=== PATIENT | male | born 1945 | race Caucasian/White ===

== ENCOUNTER → 2018-01-08 10:15 | Outpatient (BNVA) | payer MEDICARE, OTHER, SELFPAY | PROVIDERS: PCP Family Medicine; Visit Provider Orthopaedic Surgery | DX: M17.11 Unilateral primary osteoarthritis, right knee (principal) | CPT/HCPCS: 20610; 99213; J7325 ==

== ENCOUNTER 2018-05-13 10:24 | Outpatient (CLI) | payer MEDICARE, OTHER, SELFPAY ==
[2018-05-15 11:49] LABS: PSA, Diagnostic 0.7 ng/ml (0-6.5)
== END 2018-05-13 10:44 ==
PROVIDERS: Urology; PCP Family Medicine; Visit Provider Family Medicine
DX: C61 Malignant neoplasm of prostate (principal)
CPT/HCPCS: 36415; 84153

== ENCOUNTER → 2018-05-21 11:29 | Outpatient (BNVA) | payer MEDICARE, OTHER, SELFPAY | PROVIDERS: PCP Family Medicine; Visit Provider Urology | DX: R35.0 Frequency of micturition (principal); C61 Malignant neoplasm of prostate; I10 Essential (primary) hypertension | CPT/HCPCS: 99213 ==

== ENCOUNTER 2018-07-11 02:04 | Outpatient (CLI) | payer MEDICARE, OTHER, SELFPAY ==
[2018-07-11 09:39] LABS: Anion Gap 6.7 mmol/L (3-11); BUN 11 mg/dL (7-18); CO2 31.3 mmol/L (21.0-32.0); CREATININE 0.78 mg/dL (0.70-1.30); Calcium 8.6 mg/dL (8.5-10.1); Chloride 104 mmol/L (98-107); Glucose 89 mg/dL (70-100); Potassium 4.2 mmol/L (3.5-5.1); Sodium 142 mmol/L (136-145)
[2018-07-12 09:46] LABS: PSA, Diagnostic 0.6 ng/ml (0-6.5)
== END 2018-07-11 02:24 ==
PROVIDERS: PCP Family Medicine; Visit Provider Family Medicine
DX: Z12.5 Encounter for screening for malignant neoplasm of prostate (principal); Z85.46 Personal history of malignant neoplasm of prostate; I10 Essential (primary) hypertension
CPT/HCPCS: 36415; 80048; 84153

== ENCOUNTER 2018-07-29 09:56 | Outpatient (CLI) | payer MEDICARE, OTHER, SELFPAY ==
--- NOTE | 2018-07-29 09:52 | DI.RAD_ITS ---
SYMPTOMS/DIAGNOSIS: F/U RIGHT KNEE PAIN BILATERAL LOWER EXTREMITIES: AP views of the lower extremities were obtained for leg length determination. There are mild degenerative changes of both hips. There is a total knee joint replacement in position on the left. There is marked DJD of the right knee, predominantly involving the medial tibiofemoral joint. RIGHT KNEE: Lateral view of the knee was obtained and shows degenerative change of the patellofemoral joint and the tibiofemoral joints.
== END 2018-07-29 10:16 ==
PROVIDERS: PCP Family Medicine; Referring Provider Family Medicine; Visit Provider Student in an Organized Health Care Education/Training Program
DX: M25.561 Pain in right knee (principal); M17.11 Unilateral primary osteoarthritis, right knee; Z96.652 Presence of left artificial knee joint
CPT/HCPCS: 99212; 99213; 73560; 77073

== ENCOUNTER 2018-09-19 09:17 | Outpatient (CLI) | payer MEDICARE, OTHER, SELFPAY ==
--- NOTE | 2018-09-19 08:18 | W.PREOPHP ---
Assessment and Plan (1) Primary osteoarthritis of right knee: Current visit: No Status: Chronic Plan: Recommend patient discuss asthma dreams with his PCP for possible ANN work-up. Patient is agreeable to contacting his PCP for follow-up. Educated patient on surgery covering surgical technique with the use of prosthetic models, recovery process, benefits and risks including but not limited to risk of infection, blood clot, damage to soft tissue/blood vessels/nerves in detail. After discussion patient gives verbal understanding of risks and elects to proceed with scheduling surgery. Patient had opportunity to have questions answered to their satisfaction. They will contact office if issues arise. Patient will continue to be scheduled for right total knee replacement with Dr. Gonzáles. History of Present Illness Narrative: Mr. Collins is a 73-year-old male who presents to clinic for preoperative visit for scheduled right total knee replacement with Dr. Gonzáles on 09/24/18. Patient is status post left TKA done by Dr. Mcintyre approximately 13 years ago. Patient has been experiencing right knee discomfort located diffusely within his knee with occasional focal pain located along the lateral aspect of the joint. Pain has been managed by having Synvisc injections administered by Dr. Mcintyre every 6 months since before 11/12/2008 (chart records only go back to that office visit) with the latest injection being administered on 01/08/18. Following administered of injection patient would have significant improvement. Patient is hesitant to say pain prevents him from engaging in activity as he is able to complete his current activity without significant pain. However, he is unable to engage in additional activities such as hiking due to right knee pain. Pain is aggravated with prolonged weightbearing activity and occasionally he feels like when pain is severe he walks with a limp. He denies pain with stairs but does one stair at a time and has fear of the knee giving out. Although he denies any true giving out sensation, he does have fear that the knee could give out which causes him to ambulate with a cane. Previously he been managing pain by taking ibuprofen or Tylenol as needed but states he discontinued approximately a year ago. Patient denies use of ice/heat application or massage. Patient was seen on 07/29/2018 at which time he had standing alignment films done. Due to patient's continued pain despite injections and restrictions of desired activity Dr. Gonzáles recommended right total knee replacement and patient opted to proceed with surgical intervention. Pertinent Surgical Information Patient denies any recent asthma attacks or hospitalizations for asthma exacerbation. States his asthma is well-controlled. Denies recent symptoms of dyspnea or wheezing. Since New 2018 patient reports history of vertigo occurring on 2 separate occasions and lasting for several days. He reports he did see his PCP for this complaint shortly after the New when he was diagnosed with vertigo. Reports dizziness when he first sits up from bed that will improve within a few seconds. States that his symptoms are unchanged since he was seen by his PCP. Denies past medical history of: stroke, cardiac issues, angina, COPD, sleep apnea, renal issues, liver issues, hepatitis, gastrointestinal issues, ulcers, hyperlipidemia, bleeding disorders, seizures, migraines, anxiety, depression, diabetes, autoimmune disorders, thyroid issues Denies prior complications from surgery or anesthesia. Review of Systems Constitutional Denies fever(s), Denies frequent falls and Denies headache(s) Eyes Denies change in vision ENT Reports dizziness (in the morning when first sits up; denies any recent change), Denies ear discharge, Denies headache(s), Denies epistaxis, Denies nasal discharge and Denies sore throat Cardiovascular Denies chest pain, Denies rapid heart rate, Denies irregular heart rhythm, Denies dyspnea, Denies dyspnea on exertion, Denies orthopnea, Denies paroxysmal nocturnal dyspnea and Denies slow heart rate Comments: Describes what he calls asthma dreams - denies any difficulty breathing at night but states he dreams of feeling slightly SOB. Patient denies nighttime snoring or work-up of ANN in the past. He denies any recent change in this symptom. Respiratory Reports cough (occasional dry cough in the morning ), Denies dyspnea, Denies dyspnea on exertion and Denies wheezing Gastrointestinal Denies abdominal pain, Denies melena, Denies hematochezia, Denies constipation, Denies diarrhea, Denies nausea and Denies vomiting Genitourinary Denies hematuria, Denies dysuria, Reports urinary frequency (at baseline) and Reports urinary urgency (at baseline) Musculoskeletal Reports as per HPI, Denies numbness and Denies tingling Integumentary/Breasts Denies non-healing lesions, Denies sores and Denies wounds Neurologic Reports dizziness (in the morning when first sits up; denies any recent change), Denies frequent falls, Denies headache(s), Denies numbness and Denies tingling Psychiatric Denies anxiety and Denies depression Allergic/Immunologic Denies wheezing PFSH Medical History Overactive bladder Hearing loss Tremor Tinnitus 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) Asthma (Chronic 01/26/14) Carpal tunnel syndrome (Chronic 01/26/14) Diverticulosis (Chronic 01/26/14) Erectile dysfunction (Chronic 01/26/14) Hypertension (Chronic 01/26/14) Increased frequency of urination (Chronic 01/26/14) Osteoarthritis of knee (Chronic 07/07/13) Prostate cancer (Chronic 03/31/15) Rhinitis (Chronic 01/26/14) 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 Brother Heart disease Stroke Sister No problems noted. Social History Smoking/Tobacco Use Status: Former Tobacco Use Drug use: Never Meds Home Medications Medication Instructions Recorded Confirmed Type ascorbic acid (vitamin C) [Vitamin 1,500 mg PO DAILY tab.chew NS 07/09/12 09/19/18 History C] lisinopril 20 mg PO DAILY tab-cap NS 07/09/12 09/19/18 History magnesium 500 mg PO DAILY NS 07/09/12 09/19/18 History albuterol sulfate 2 puff INHALATION QID PRN 01/09/14 09/19/18 History ibuprofen 400 mg PO BID 03/31/15 09/19/18 History cetirizine [Zyrtec] 10 mg PO DAILY tab-cap 10/05/15 09/19/18 History montelukast [Singulair] 10 mg PO DAILY tab-cap 10/05/15 09/19/18 History oxybutynin chloride 5 mg tablet 5 mg PO BID PRN #60 tab 07/16/18 09/19/18 Rx atorvastatin 20 mg tablet 20 mg PO DAILY 09/19/18 09/19/18 History calcium carbonate 600 mg (1,500 1 tab PO DAILY 09/19/18 09/19/18 History mg)-vitamin D3 400 unit tablet fluticasone propionate 2 spray INTRANASAL DAILY 09/19/18 09/19/18 History fluticasone propionate 110 1 puff IH BID 09/19/18 09/19/18 History mcg/actuation HFA aerosol inhaler omeprazole 20 mg capsule,delayed 20 mg PO DAILY 09/19/18 09/19/18 History release Allergies Allergy/AdvReac Type Severity Reaction Status Date / Time shellfish derived Allergy Severe Anaphylaxsi Unverified 09/19/18 09:16 s Sulfa (Sulfonamide AdvReac Nausea Unverified 09/19/18 09:16 Antibiotics) Exam Const General: cooperative and no acute distress [facility] Head: normal to inspection, normocephalic and atraumatic Ears: external ears normal General nose exam: external nose normal and no nasal discharge Face and sinus: face symmetric Mouth: oral mucosae normal, lip normal, tongue normal and moist mucous membranes Teeth and gingiva: dentition normal Throat: posterior oropharynx normal Eyes General: appearance normal, both eyes and all related structures Pupils: PERRL EOM: EOM intact bilaterally Neck Neck: trachea midline Carotids: normal carotid upstroke Lymphatic: no lymphadenopathy noted Resp Effort & Inspection: normal respiratory effort and able to speak in complete sentences Auscultation: clear to auscultation bilaterally, no rales, no rhonchi and no wheezes Cardio Heart Sounds: S1 normal, S2 normal and no murmurs Pulses: radial pulses present bilaterally GI Palpation: soft, no hepatosplenomegaly and nontender Auscultation: normal bowel sounds Skin General skin exam: no rashes or lesions noted Extrem Other: Right knee examination: Skin is intact without signs of erythema, calor or lesions. No signs of effusion are present. Active range of motion yields short of full extension by 5 degrees and yields flexion of 120 degrees without discomfort. Results Labs : 09/19/18 10:23 09/19/18 10:23
[2018-09-19 10:30] LABS: HCT 40.5 % (40.0-50.0); HGB 13.7 g/dL (13.5-17.5); Mean Corp. HGB Concentration 33.8 g/dL (32.0-36.0); Mean Corpuscular Hemoglobin 31.4 pg (27.0-33.0); Mean Corpuscular Volume 92.7 fL (80-95); Mean Platelet Volume 9.1 fL (8.0-11.0); Platelet Count 176 x1000/uL (130-400); RBC 4.37 m/cumm (4.50-6.00); RBC Distribution Width 13.7 % (11.8-14.1)
[2018-09-19 11:59] LABS: Anion Gap 5.8 mmol/L (3-11); BUN 12 mg/dL (7-18); CO2 30.2 mmol/L (21.0-32.0); CREATININE 0.71 mg/dL (0.70-1.30); Calcium 8.7 mg/dL (8.5-10.1); Chloride 100 mmol/L (98-107); Glucose 93 mg/dL (70-100); Potassium 4.6 mmol/L (3.5-5.1); Sodium 136 mmol/L (136-145)
== END 2018-09-19 09:37 ==
PROVIDERS: PCP Family Medicine; Visit Provider Student in an Organized Health Care Education/Training Program
DX: M17.11 Unilateral primary osteoarthritis, right knee (principal); Z01.818 Encounter for other preprocedural examination; I10 Essential (primary) hypertension
CPT/HCPCS: 36415; 80048; 85027; NC

== ENCOUNTER 2018-09-24 06:01 | Inpatient (IN) | payer MEDICARE, OTHER, SELFPAY ==
[2018-09-19 09:44] VITALS: BP 117/71; PULSE 65; RESP 16; TEMP 37.1; O2SAT 99
[2018-09-19 09:46] VITALS: BP 117/71; PULSE 65; RESP 16; TEMP 37.1; O2SAT 99
[2018-09-19 10:08] VITALS: BP 117/71; PULSE 65; RESP 16; TEMP 37.1; O2SAT 99
[2018-09-24] VITALS (16 sets, daily range): BP systolic 97–153; BP diastolic 51–85; PULSE 50–84; RESP 11–19; TEMP 35.3–37.4; O2SAT 92–100
[2018-09-24] MEDS: Gabapentin 300 MG CAP PO ×2 (06:50→21:55)
[2018-09-24] MEDS: Celecoxib 200 MG CAP 400 MG PO (06:50)
[2018-09-24] MEDS: oxyCODONE-CR 10 MG TABCR PO (06:50)
[2018-09-24] MEDS: Acetaminophen 500 MG TAB 1000 MG PO ×2 (06:51→19:39)
[2018-09-24] MEDS: Lactated Ringers 1,000 ML 80 ML IV (07:13)
[2018-09-24] MEDS: Bupivacaine LIPOSOME/PF 133 MG/10 ML VIAL IJ ×2 (07:19→09:00)
[2018-09-24] MEDS: ceFAZolin 2 GM/50 ML BAG IVPB (07:32)
[2018-09-24] MEDS: Normal Saline 20 ML VIAL (09:00)
[2018-09-24] MEDS: Bupivacaine 0.25% Pres-Free 30 ML VIAL (09:00)
[2018-09-24] MEDS: Ketorolac 30 MG/ML VIAL (09:00)
[2018-09-24] MEDS: Bupivacaine 0.25% Pres-Free 10 ML VIAL (09:00)
--- NOTE | 2018-09-24 12:23 | NUR.NOTE ---
Patient arrived on unit at 1039. Patient arrived on stretcher from PACU with PACU nurse. Patient assigned to room 231. Patient transferred to room bed via hover mat. Patient spinal site scabbed over, no bleeding or drainage. Right leg nerve block site scabbed over, no drainage noted. Patient arrived with cryo cuff on. Patient has mepilex dressing over surgical site on right knee wrapped with ALEJANDRO bandage. Patient has TEDs and SCDs on left leg. Proper footwear noted. IV on left forearm. Lactated Ringers solution infusing through left IV site. Hoffman in place with clear venessa urine. Patient drowsy intermittently between alert and awake. Patient oriented x3. Heart rate regular, S1 & S2 sounds. No murmur noted. Heart rate bradycardic at 52 with first vitals on the floor. Capillary refill less than 3 seconds with positive radial and pedal pulses bilaterally. Lungs clear all lobes. Normal bowel sounds. Patient reports tingling in lower extremities bilaterally. Patient reports normal sensation. Nursing Note:
[2018-09-24] MEDS: Ibuprofen 600 MG TAB PO ×2 (14:00→19:40)
--- NOTE | 2018-09-24 14:17 | ROE_ITS ---
Date of service: 09/24/18 Time of Service: 14:14 Operative Note DATE OF PROCEDURE: 09/24/18 PRE-OP DIAGNOSIS: Right knee osteoarthritis POST-OP DIAGNOSIS: same PROCEDURE: Right Total Knee Replacement SURGEON: Janes Gonzáles ROPE LAYING MACHINE OPERATOR: Alexi Young ANESTHESIA: regional and spinal ESTIMATED BLOOD LOSS: 250 PATHOLOGY: none sent TOURNIQUET TIME: 28 COMPLICATIONS: None Patient was transported to: PACU Patient's condition: stable Implants: 1. Depuy Attune Posterior Stabilized Femoral Component, Size 6 2. Depuy Attune Fixed Platform Tibial Component, Size 6 3. Depuy Attune 6x6 fixed, Stabilized Poly 4. Depuy Attune Patellar Component, Size 38 Indications: I have seen Andrey in clinic for symptoms of RIGHT knee arthritis, confirmed with radiographic findings. Andrey has exhausted nonoperative methods and was having significant limitations in daily function and desired better function and less pain. I discussed the technical details of a knee replacement. I explained the risks of the procedure to include, but not limited to, bleeding, infection, pain, stiffness, fracture, damage to nerves and vessels, damage to muscles and tendons, loosening, need for repeat procedure, blood clot and cardiopulmonary demise. Despite these risks, he elected to proceed. Findings: There was significant signs of arthritis throughout the knee. These are mostly noted in the medial compartment but also present to a lesser extent in the lateral compartment and the patellofemoral joint. Procedure Description: Andrey was greeted in the preoperative holding area where the correct side was identified and marked. The consent was reviewed with the patient and signed. The history and physical was updated. All questions were answered. Preoperative mediacations were administered: Acetaminophen 1000mg, Celebrex 400mg, Gabapentin 300mg, and Oxycontin 10mg. An adductor canal block was then administered by the anesthesia team in the PACU. Andrey was taken back to the operating room. A spinal anesthestic was then administered. The patient was placed into the supine position on the operating room table. A nonsterile tourniquet was placed high onto the leg but only used for cementing. Posts were placed for positioning during the procedure. All bony prominences were well padded. Prophylactic antibiotics in the form of cefazolin were administered. 1g of Tranxemic Acid was given intravenously within 30 minutes of incision. The right leg was then prepped with Chloraprep and draped in a standard fashion with impervious stockinette and extremity drape with Iodine impregnated skin protection. A timeout to confirm correct identity, side and site, procedure, allergies, anesthesia, and medical concerns was performed. With the knee in some flexion, a midline incision was made overlying the knee. Full thickness skin flaps were raised once the extensor mechanism was encountered. These were raised medially and laterally. Any bleeding was controlled with electrocautery. Once the extensor mechanism was fully exposed, a medial parapatellar arthrotomy was performed in a flexed position. All bleeding from the arthrotomy and the geniculate arteries was coagulated. A medial subperiosteal peel was performed with electrocautery to the midcoronal plane. Due to the significant varus deformity the entire medial tibial plateau was exposed. The fat pad was removed while keeping the patellar tendon protected. The anterior distal femur synovium was removed for later visualization. The ACL and PCL were resected and the anterior horn of the lateral meniscus was transected. The knee was then flexed with the patella everted. Large osteophytes from the tibia were removed. Large osteophytes from the femur were removed. Using a step drill, and based on preoperative templating, the femoral canal was entered. This was done with a step drill without any difficulty. The intramedullary distal femoral cut guide was inserted, set to a 5 degree valgus cut and 9mm cut thickness. The distal femoral cut guide was then held in position and pinned. With the soft tissues protected, the distal cut was performed. This was passed over a few times to ensure a planar cut. I then turned attention to the tibia. The extramedullary guide was placed onto the leg. The distal aspect was slid medial to adjust for position of center of ankle and stay in line with shaft of the tibia. Approximately 3-5 degrees of posterior slope was kept in the proximal cutting guide. The center of the guide was aligned with the PCL. The stylus was used to assess cut thickness. The medial side, most involved side, was set for a 4mm cut. This was then held in position and pinned into place with 2 additional pins and a cross pin for stability. The medial and lateral collateral ligaments were protected and the cut was performed. With this completed, it was assessed and noted to be of appropriate dimensions. The guide was removed. A spacer block was inserted and the knee was brought into ext ension. The 6mm spacer block provided full extension, without hyperextension and with stability of both the medial and lateral collateral ligaments was assessed. The pins from the femur and the tibia were then removed. The distal femur was then sized. The anterior stylus was placed onto the lateral ridge of the anterior femur. This indicated a size 6 femur. The external rotation of the guide was adjusted to 3 degrees to match the epicondylar axis, perpendicular to Hotchkiss?s line. The 4-in-1 cutting guide was the placed. The posterior medial femur cut was evaluated and appeared of good thickness. The spacer block was inserted underneath the cutting guide and stability was confirmed in 90 degrees of flexion. An maura wing was used to confirm appropriate position of the anterior cut to avoid notching. This cutting guide was ensured to be flush on the cut surface and then pinned into place with headed pins. While protecting the soft tissues, quad tendon, and collateral ligaments, the anterior and posterior cuts were performed with a saw. The central two pins were removed and the posterior and anterior chamfers were cut next. The notch-cutting guide was placed. This was pinned to lateralize the femoral component as much as possible while keeping it flush on the cut surface. This was then pinned into position. A reciprocating saw was used to make the notch cut. A rasp smoothed the cut surfaces. A trial posterior stabilized femoral component was then inserted, impacted down to the cut surfaces, and the lug holes were drilled. A provisional trial tibial component was placed and the knee was brought through range of motion. There was noted to be excellent extension and flexion. There was no significant instability. The patella was tracking without thumbs. The tibial cut surface was fully exposed. The medial and lateral menisci were removed. The tibia was then sized as a 6. The tibia had been previously marked during trialing to correspond to the center of the tibial component to help with rotation. The trial was aligned to this alexi, approximately rotated to the medial 1/3rd of the tibial tubercle. The trial was pinned into place. The tib ia was prepared with a reamer and a keel punch. The knee was then brought into extension and the patella was measured as 26 mm. Using the patellar clamp and cut guide, this was resected to a flat surface with at least 13mm of thickness remaining. The size 38 patella fit the best. This was oriented and then clamped into position. The lugs were drilled. The trial components were removed. The final components, except for the polyethylene were opened on the back table. The periosteal and capsular tissues, especially posteriorly, around the knee were then systematically injected with a periarticular cocktail consisting of 50cc 0.25% Marcaine, 30mg Ketorolac, 20cc of Exparal and 50cc of injectable saline. The tourniquet was then inflated to 275mmHg. The knee was thoroughly irrigated with a pulse lavage and dried. On the back table, with the implants opened, the cement was mixed. 2 batches of antibiotic laden cement were prepared with vacuum assistance. After the cement was ready a small amount was placed on to the back side of the tibial component at the keel. A small amount was placed onto the posterior flange of the femur. Cement was manual pressurized and impregnated into the cut surface of the tibia. The tibial component was then inserted into the cut surface and impacted into position. Excess cement was removed and the component was reimpacted. Again, excess cement was removed and our attention was then turned to the femur. The femoral cut surface was once again dried and cement was manually impacted into the cut surface. The femoral component was lined with the lug holes and impacted. Excess cement was removed. It was ensured to be down against the cut surface. The trial polyethylene was then inserted and the leg was brought out into full extension for the duration of the cement curing process, approximately 15min. Cement was lastly manually impacted into the cut surface of the patella and the patellar button was clamped into position and held. During this process attention was turned to the gutters of the knee and for all interfaces for any excess cement. After the cement had finally cured, approximately 15min, the clamp was removed from the patella and the knee was taken through range of motion. A size 6mm polyethylene component provided the best range of motion and stability with less than 2mm gapping with medial and lateral stress and full extension without significant hyperextension. The patella was tracking with a no-thumbs technique. The trial poly was removed and once again the knee was checked for any loose, excess, or errant cement. The poly component was then inserted and impacted into position after cleaning and drying the tibial tray. The capsule was then reapproximated with a No. 1 Vicryl at multiple locations. The capsule was finally closed with a No. 2 Stratafix, barbed suture. The tourniquet was then released and the arthrotomy appeared watertight without significant bleeding. The second dosing of 1g TXA was started. Deep tissues were then reapproximated with 0 Vicryl and 2-0 Vicryl. The skin was closed with a running 3-0 Monocryl in a subcuticular fashion. This was reinforced with skin glue. A Mepilex silver dressing was applied along with a [id number] ALEJANDRO wrap. A CryoCuff was applied. Andrey was transferred to the hospital bed without difficulty an suffering no apparent complication. Andrey has a good prognosis. Physical therapy will start today and without restrictions, weight-bearing as tolerated. Aspirin 81mg BID will be used for DVT prophylaxis.
[2018-09-24] MEDS: oxyCODONE 5 MG TAB PO (16:01)
[2018-09-24] MEDS: Aspirin E.C. 325 MG TABEC 81 MG PO (19:40)
[2018-09-24] MEDS: Magnesium Gluconate 500 MG TAB PO (19:40)
[2018-09-24] MEDS: Atorvastatin 20 MG TAB PO (21:55)
--- NOTE | 2018-09-24 22:52 | NUR.NOTE ---
Nursing Note: Pt received on bed fully awake with IVFluids infusing well. Ambulates in the hallway with minimal assist and tolerated well. Incision drsg on right knee is C/D/I with cryo cuff in progress continuously while on bed. Medicated with oxy and with good effect. CSMT on affected leg is within normal limit.Continue to observe.
[2018-09-25] MEDS: Lactated Ringers 1,000 ML 80 ML IV (00:12)
[2018-09-25 03:30] VITALS: BP 124/72; PULSE 79; RESP 18; TEMP 37.7; O2SAT 97
[2018-09-25 07:39] VITALS: BP 138/84; PULSE 70; RESP 18; TEMP 37.4; O2SAT 98
[2018-09-25] MEDS: Mometasone 220 MCG 14 DOSE INHALER 1 PUFF IH (07:54)
[2018-09-25] MEDS: Normal Saline Flush 10 ML SYR IV (08:00)
[2018-09-25] MEDS: Ibuprofen 600 MG TAB PO ×3 (08:01→19:50)
[2018-09-25] MEDS: Lisinopril 20 MG TAB PO (08:02)
[2018-09-25] MEDS: Cetirizine 10 MG TAB PO (08:02)
[2018-09-25] MEDS: Calcium 600mg/Vit D 200U TAB 1 TAB PO (08:03)
[2018-09-25] MEDS: Aspirin E.C. 81 MG TABEC PO ×2 (08:04→19:50)
[2018-09-25] MEDS: Oxybutynin 5 MG TAB PO ×2 (08:04→13:54)
[2018-09-25] MEDS: Omeprazole 20 MG CAPCR PO (08:05)
[2018-09-25] MEDS: Ascorbic Acid 500 MG TAB 1500 MG PO (08:05)
[2018-09-25] MEDS: oxyCODONE 5 MG TAB PO ×3 (08:06→12:57)
[2018-09-25] MEDS: Acetaminophen 500 MG TAB 1000 MG PO ×3 (08:06→19:49)
--- NOTE | 2018-09-25 08:33 | IN_ITS ---
Date of service: 09/24/18 Time of Service: 11:48 PT Notes Inpatient Physical Therapy Evaluation Date: 09/24/2018 Referring Doctor: Janes Gonzáles MD PT Orders: PT CONSULT: Status post right TKA Precautions: Fall. Standard. WBAT on right LE. Patient Profile/Admitting Diagnosis: Patient is a 73-year-old male with past medical history significant for osteoarthritis of right knee and vertigo who is status post right total knee arthroplasty on postoperative day 0. 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 He was independent with all aspects of ADLs without the need for assistive ambulatory device nor adaptive equipment. Current Functional Limitations: Need for assistance for all transfers and ambulation task performance using front wheel walker Equipment Owned/DME: FWW, high-rise toilet, grab bars Subjective: Patient pleasant and cooperative. He is agreeable to a PT consult today. He reports sensation of dizziness on assuming sitting and standing positions. Patient and states that he has had vertigo before but had resolved. They both state that the vertigo recurred a week or two ago. He reports some mild ache and stiffness on the right knee during ambulation activ ity. Objective: General Observation: Patient seen resting in bed. ALEJANDRO wraps on right LE. Cryocuff on right LE. Hoffman catheter in place. IV in the left UE. Anti-DVT pump on left leg. Mental Status: Alert and oriented x 4 Pain: Reported mild ache and stiffness on the left kneethe R knee with mobility performance Vital Signs: 133/70 mmHg, 55 bpm, 99% RA. ROM: Right Upper Extremity: Shoulder Flexion WFL. Shoulder abduction WFL. Elbow flexion WFL. Wrist flexion WFL. Functional opening and closing of hand WFL. Left Upper Extremity: Shoulder Flexion WFL. Shoulder abduction WFL. Elbow flexion WFL. Wrist flexion WFL. Functional opening and closing of hand WFL. Right Lower Extremity: Hip flexion 0-70. Hip abduction WFL. Knee flexion 0-90. Knee extension -20. Ankle dorsiflexion WFL. Ankle plantarflexion WFL. Left Lower Extremity: Hip flexion WFL. Hip abduction WFL. Knee flexion WFL. Ankle dorsiflexion WFL. Ankle plantarflexion WFL. Managed medically Strength: Right Upper Extremity: Shoulder flexors 5/5. Shoulder abductors 5/5. Elbow flexors 5/5. Elbow extensors 5/5. Maintenance Services Dispatcher strong. Left Upper Extremity: Shoulder flexors 5/5. Shoulder abductors 5/5. Elbow flexors 5/5. Elbow extensors 5/5. Maintenance Services Dispatcher strong. Right Lower Extremity: Hip flexors 3-/5. Hip abductors 5/5. Knee flexors 3-/5. Knee extensors 3-/5 with poor R quadcripces activation due to post-op status and post-anesthesis effects. Ankle dorsiflexors 5/5. Ankle plantarflexors 5/5. Left Lower Extremity:Hip flexors 4/5. Hip abductors 4/5. Knee flexors 4/5. Knee extensors 4/5. Ankle dorsiflexors 5/5. Ankle plantarflexors 5/5. Sensation: Diminished on BLE as to pressure. Bed Mobility/Transfers: Rolling CGA Supine to sit CGA with HOB elevated to 30 degrees Sit to supine CGA with HOB elevated to 30 degrees Sit to stand minimal assist with FWW with cues needed for hand placement Stand to sit minimal assist with FWW with cues needed for hand placement Bed to chair minimal assist with FWW with cues needed for hand placement Chair to bed minimal assist with FWW with cues needed for hand placement Gait: Patient was able tolerate short distance ambulation using FWW with WBAT on R LE and minimial assist of this PT. Patient negotiated 8' + 2 sidesteps + 2 back steps using step-to gait pattern with decreased gait velocity and decreased knee stability @ midstance d/t to poor R quadriceps activation. Balance: Static Sitting: Good Dynamic Sitting: Good Static Standing: Fair Dynamic Standing: Fair Special Tests: Mobility Limitations Standardized Measure [facility] AM-PAC 6 clicks Basic Mobility Inpatient Short Form: Raw Score: 15 CMS Score: 58% deficit Informed Consent/Education: Patient instructed in purpose of PT consult and plan of care. He was educated about rationale of room exercise activity and trained on hourly performance of ankle pumping x30, quadriceps setting with 5- second hold x10 reps, heel slides to tolerance with 5-second hold x 10 coordinated with deep breathing activity. Assessment: 73-year-old male with primary unilateral osteoarthritis of right knee status post right total knee arthroplasty. Patient presents with clinical signs and symptoms consistent with current/admitting diagnoses and post reparative status that have resulted to mobility limitations, gait instability, generalized weakness, and impairment of motor control as demonstrated by the following impairment level findings: 1. Decreased strength to R LE major muscle groups 2. Impaired sitting/standing balance 3. Impaired activity tolerance 4. Limitation of joint range of motion in the right hip and knee joints I think 5. Decreased right quadriceps activation due to post operative status and post anesthesia effects Impairments are contributing to the following functional limitations: 1. Dependent bed mobility skills 2. Increased dependence with transfers 3. Inability to safely ambulate without assistive device and physical assistance 4. Increase completion time for mobility ADL performance 5. Increased fall risk 6. Inability to negotiate steps alone safely Patient is assessed as a 79915 moderate Complexity based on the following: History: 73-year-old cognitively intact male with independent premorbid mobility level currently limited by post operative status and report of dizziness Examination: Underlying impairments and functional limitations as noted above Presentation:Evolving Decision Makin moderate complexity Goals: Goals X1 week 1. Supine-Sit independent 2. Sit-Supine independent 3. Sit-Stand independent 4. Stand-Sit independent 5. Bed-Chair independent 6. Chair-Bed independent 7. Independent gait on level surface with use of least restrictive device for at least 300 feet without report of pain nor dyspnea 8. Independent stair negotiation while holding onto bilateral rails for at least 10 steps without report of pain nor dyspnea 9. Independent with home exercise program 10. Good static and dynamic standing balance/tolerance Plan of Care/Treatment Plan: 1-2x/day, 7 days/week x 1 week. Plan of care has been reviewed with the DIRECTOR OF GRADUATE ADMISSIONS providing the service under Physical Therapy direction. Initiate Physical Therapy intervention for strengthening, bed mobility, transfers, gait, stairs, balance training, use of assistive device. DISCHARGE RECOMMENDATIONS: No equipment needs at this time. Patient may benefit from home health PT services in order to progress mobility level using least restrictive assistive ambulatory device/using no device, assess home safety, identify additional equipment needs, and establish a functional maintenance program that will increase ability of patient to remain at home. TREATMENT CODE/TIME: 32854 x 32 minutes beginning at 11:48 AM. Thank you very much for this referral. Leigh Ann Blackburn PT, DPT, CLT [facility].
--- NOTE | 2018-09-25 09:58 | INITIAL_ITS ---
- If Service Date Differs Date of service: 09/25/18 Time of Service: 09:48 Care Management Initial Assess REASON FOR HOSPITALIZATION:: Right knee DJD PAST MEDICAL HISTORY/PAST SURGICAL HISTORY:: past medical History: Adenomatous polyp of transverse colon, Asthma, Diverticulosis, Erectile Dysfunction, Hearing Loss, Hyperplasia of prostate with urinary obstruction, Hypertension, Increased frequency of urination, Obstructive and reflux uropathy, Osteoarthritis of knee, Overactive bladder, Primary osteoarthritis of right knee, prostate cancer, Rhinitis, Tinnitus, Trempr, Vertigo. Past Surgical History: Status post trigger finger release (Acute). Status post appendectomy (Acute). S/P tonsillectomy (Acute). Status post bilateral inguinal hernia repair (Acute). Colonoscopy - MAC (05/09/17). Status post total left knee replacement (Chronic). Status post trigger finger release (Acute). Status post appendectomy (Acute). S/P tonsillectomy (Acute). Status post bilateral inguinal hernia repair (Acute). Colonoscopy - MAC (05/09/17). Status post total left knee replacement (Chronic) PREVIOUS FUNCTIONAL STATUS/SOCIAL/FAMILY SUPPORTS:: Andrey lives with his in a ranch style home with 3 entrance steps. 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 For family support he has 2 adult children and his . They have no grandchildren. Andrey is independent with all ADLs and continues to drive. CURRENT FUNCTIONAL STATUS:: Andrey was sitting up in bed during CM visit. He was smiling and engaged readily in conversation. He had knee surgey yeaterday and said that his pain is well controlled. He had knee surgery about 13 years ago and has a walker from that encounter. He expects to be discharged within the next 24 hours. Has patient been provided with information about the portal?: Yes Did the patient sign up for the portal?: No CODE STATUS:: Full Code INSURANCE COVERAGE / FINANCIAL ISSUES:: Medicare. [employer] CURRENT HOME/COMMUNITY SERVICES/EQUIPMENT:: Has a walker from previous surgery but has not been using. PRIMARY CARE PHYSICIAN:: Catia Means POTENTIAL DISCHARGE NEEDS:: Outpatient PT and follow up appointments with PCP and surgeon PATIENT/FAMILY EDUCATION NEEDS:: Discharge plan, limitations, follow up plan of care, Ask Me Three. ANTICIPATED BARRIERS TO DISCHARGE:: none TRANSPORTATION:: Via private vehicle with PLAN:: Andrey is receiving PT and pain medication following his knee surgery. Anticipate he will be discharged home with outpatient PT. CM will continue to provide support to patient, family and discharge plan of care.
[2018-09-25 11:30] VITALS: BP 145/71; PULSE 76; RESP 18; TEMP 37.1; O2SAT 98
--- NOTE | 2018-09-25 11:59 | PT.INTREAT ---
Date of service: 09/25/18 Time of Service: 11:59 PT Notes Inpatient Physical Therapy Treatment Note [facility] Date: 09/25/2018 PRECAUTIONS: Fall, WBAT R SUBJECTIVE: Andrey reports significant increase in right knee soreness this morning versus yesterday. Patient also reports that he has not been feeling well since performing his exercises independently this morning. He is agreeable to participating in PT this morning. OBJECTIVE: PAIN: Patient complained of right knee pain with ther ex, gait training, and transfers. BED MOBILITY/TRANSFERS Supine-sit: I with HOB flat Sit-stand: SBA Stand-sit: SBA GAIT Assistive Device: FWW Weight bearing: WBAT R Assist: SBA Distance: 30' + 20' in a.m.; 50' x2 in p.m. Deviation: Decreased panfilo, decreased step length/height, standing rest x4, cueing for breathing, complaints of increased knee pain THEREX: Patient completed a lower extremity strengthening and stabilization program, in a seated position in a.m. and a supine position in p.m., as per flow sheet. TOILETING: Patient toileted with supervision ASSESSMENT: Patient tolerated session with complaint of right knee pain with ther ex, transfers, and gait. Patient was able to tolerate a progression in gait distance with FWW support and SBA. Patient demonstrates decreased panfilo, step length, and step height, requiring standing rest x4 and cueing for normalized breathing. Patient would benefit from continued gait and transfer training as well as strengthening for improved mobility and improved ability to perform daily functional tasks at a more independent level. PLAN: Continue with PTs POC TREATMENT CODE/TIME: Session 1: 30 minutes; [id number], [id number] Session 2: 30 minutes; [id number], [id number]
--- NOTE | 2018-09-25 12:59 | W.PM.PROGNOT ---
Date of Service Date of service: 09/25/18 Time of Service: 13:00 Assessment and Plan (1) Primary osteoarthritis of right knee: Current visit: No Status: Chronic Andrey is status post knee replacement of the right side. In general, I think he is doing well. He seems to have good pain control. He has been able to ambulate. He is rather pessimistic about the progress. I have encouraged him to be more positive about it. I think he is doing well. It is normal to be swollen and stiff in the first 2 days after knee replacement surgery. We will continue with physical therapy. We work on pain control. He will stay overnight today and likely discharge home tomorrow. Aspirin 81 mg twice daily for clot prevention. Subjective Interval history since last seen: Andrey reports having some pain now. He was able to ambulate slightly with physical therapy. He reports worsening stiffness today. He was able to tolerate some pain medication. He has been able to void with Hoffman catheter removed. He is hesitant to put all his weight and trust the knee. No chest pain or shortness of breath. Exam Narrative Exam Narrative: No acute distress. Breathing comfortably without notable work. Right lower externally dressings intact. He has intact dorsiflexion, plantarflexion, great toe extension and flexion. Sensation intact light touch of the deep and superficial peroneal nerves and tibial nerve. Objective Objective Clinical Data: Vital Signs Temperature 37.1 C 09/25/18 11:30 Temperature Source Tympanic 09/25/18 11:30 Pulse 76 09/25/18 11:30 Pulse Rhythm Regular 09/25/18 00:00 Respiratory Rate 18 09/25/18 11:30 Respiratory Effort 09/25/18 00:00 Respiratory Depth Normal 09/25/18 00:00 Respiratory Pattern Normal 09/25/18 00:00 Blood Pressure 145/71 H 09/25/18 11:30 Pulse Oximetry 98 09/25/18 11:30 Respiratory End-tidal CO2 40 09/24/18 10:25 Oxygen Delivery Method Room Air 09/25/18 11:30 Oxygen Flow Rate 0 09/25/18 11:30 Pain Level 0 09/25/18 01:00 Intake & Output 09/24/18 09/25/18 09/25/18 23:59 11:59 23:59 Intake Total 1513.333 / 2640.000 1594.000 / 1594.000 Output Total 1050 / 1450 1750 / 1750 Balance 463.333 / 1190.000 -156.000 / -156.000 Intake: IV 393.333 / 1370.000 684.000 / 684.000 Oral 1120 / 1270 910 / 910 Output: Urine 1050 / 1200 1750 / 1750 Other: Urine Color Light Maribeth Light Maribeth Urine Appearance Clear Clear
[2018-09-25 15:10] VITALS: BP 141/75; PULSE 78; RESP 20; TEMP 37.2; O2SAT 96
[2018-09-25] MEDS: Magnesium Gluconate 500 MG TAB PO (19:50)
[2018-09-25] MEDS: Gabapentin 300 MG CAP PO (21:18)
[2018-09-25] MEDS: Montelukast 10 MG TAB PO (21:18)
[2018-09-25] MEDS: Atorvastatin 20 MG TAB PO (21:18)
[2018-09-25 23:33] VITALS: BP 124/69; PULSE 74; RESP 19; TEMP 36.9; O2SAT 98
[2018-09-26 04:45] VITALS: BP 124/74; PULSE 59; RESP 16; TEMP 36.5; O2SAT 97
[2018-09-26] MEDS: Mometasone 220 MCG 14 DOSE INHALER 1 PUFF IH (07:33)
--- NOTE | 2018-09-26 07:37 | PDOC.DSDIS_ITS ---
Discharge Plan Disposition Patient Disposition: HOME Condition: Good Discharge Details Reason For Visit: R KNEE DJD Admit Date/Time: 09/24/18 06:01 Admit Provider: Janes Gonzáles Attending Provider: Janes Gonzáles Primary Care Provider: Catia Means Hospital Course Hospital Course: Patient was admitted to the medical/surgical floor following the procedure. It was tolerated well without any notable medical, surgical, or anesthetic complications. Mobilization began postoperatively. The everett catheter was removed and voiding spontaneously. Vitals were stable. Physical therapy worked with the patient and was cleared for discharge home. No acute medical issues. Home Meds and New Rx's Prescriptions: New aspirin 81 mg tablet,delayed release (DR/EC) 81 mg PO BID Qty: 60 RF: 0 acetaminophen 500 mg tablet 1,000 mg PO Q8H PRN (Reason: pain) Qty: 90 RF: 3 ibuprofen 600 mg tablet 600 mg PO TID PRNQty: 90 RF: 3 oxycodone 5 mg tablet 5 mg PO Q4H Qty: 15 RF: 0 Continued omeprazole 20 mg capsule,delayed release(DR/EC) 20 mg PO DAILY RF: 0 atorvastatin 20 mg tablet 20 mg PO DAILY RF: 0 Flovent HFA 110 mcg/actuation HFA aerosol inhaler 1 puff IH BID RF: 0 calcium carbonate-vitamin D3 [Calcium 600 + D(3)] 600 mg(1,500mg) -400 unit tablet 1 tab PO DAILY RF: 0 lisinopril 20 MG tablet 20 mg PO DAILY RF: 0 ascorbic acid (vitamin C) [Vitamin C] 500 MG tablet,chewable 1,500 mg PO DAILY RF: 0 magnesium 250 MG tablet 500 mg PO DAILY RF: 0 montelukast [Singulair] 5 MG tablet,chewable 10 mg PO DAILY RF: 0 cetirizine [Zyrtec] 10 MG tablet,chewable 10 mg PO DAILY RF: 0 oxybutynin chloride 5 mg tablet 5 mg PO BID PRN (Reason: bladder spasms) Qty: 60 RF: 6 albuterol sulfate 8.5 GM HFA aerosol inhaler 2 puff Inhalation QID PRNRF: 0 fluticasone propionate 50 mcg/actuation [place],Suspension 2 spray INTRANASAL DAILY RF: 0 Discontinued ibuprofen 800 MG tablet 400 mg PO BID RF: 0 Discharge Instructions Additional Instructions: Dr. Gonzáles?s Total Knee Discharge Instructions Activity: The most important activity is to walk. You should try to take short walks a few times a day. It is important that when resting you work on keeping the knee straight. Avoid putting a pillow behind the knee as this will encourage flexion. Work on range of motion exercises as provided by Physical Therapy. - Start outpatient physical therapy within 2 weeks. - You should wear the KAELA hose on both legs for 4 weeks. Dressing: Keep the surgical dressing in place for at least one week. After the first week it may be removed and replace with light gauze and tape or nothing. It may get wet after 3 days but avoid soaking the dressing. If it gets wet, just lightly pat dry. Medications: - You should take Tylenol and anti-inflammatory (ibuprofen) as your primary pain control medications - You have been prescribed a stronger pain medication (Oxycodone) for breakthrough pain, take as needed as prescribed. - You will be taking Aspirin 81mg twice a day for DVT prevention unless instructed otherwise. - If you have constipation you should take Colace or Miralax (both [id number]). It takes most people 3-4 days to have a bowel movement. Follow-up: 2 weeks Stand Alone Forms: Nursing Discharge Form Referrals: Janes Gonzáles MD [ [facility] STAFF PHYSICIAN] - Activity:: Activity as Tolerated Equipment/Supplies:: No Equipment Needed Diet:: As Tolerated DS: Diagnosis Discharge Diagnosis (1) Primary osteoarthritis of right knee: Status: Chronic
[2018-09-26] MEDS: Lisinopril 20 MG TAB PO (08:24)
[2018-09-26] MEDS: Ascorbic Acid 500 MG TAB 1500 MG PO (08:24)
[2018-09-26] MEDS: Omeprazole 20 MG CAPCR PO (08:24)
[2018-09-26] MEDS: Normal Saline Flush 10 ML SYR IV (08:24)
[2018-09-26] MEDS: Oxybutynin 5 MG TAB PO (08:25)
[2018-09-26] MEDS: Aspirin E.C. 81 MG TABEC PO (08:25)
[2018-09-26] MEDS: Calcium 600mg/Vit D 200U TAB 1 TAB PO (08:25)
[2018-09-26] MEDS: Cetirizine 10 MG TAB PO (08:25)
[2018-09-26] MEDS: Acetaminophen 500 MG TAB 1000 MG PO (08:26)
[2018-09-26] MEDS: Ibuprofen 600 MG TAB PO (08:26)
[2018-09-26] MEDS: oxyCODONE 5 MG TAB PO (08:31)
[2018-09-26 08:40] VITALS: BP 144/78; PULSE 81; RESP 16; TEMP 36.4; O2SAT 96
--- NOTE | 2018-09-26 09:21 | PT.INTREAT ---
Date of service: 09/26/18 Time of Service: 09:21 PT Notes 09/26/18 SUBJECTIVE: Pt stating he is feeling better than yesterday. Less vertigo symptoms today. Pain seems well managed. OBJECTIVE: Seated in chair upon entering room. Agreeable to PT treatment. TRANSFERS Sit to stand: SBA Stand to sit: SBA Sit to supine: I Supine to sit: I GAIT Device: FWW Weight bearing: AT Assist: SBA Distance: 100'x2 Deviation: Step to pattern. Able to increase weight bearing through right LE STAIRS: Up and down 2-6 steps, 3-4 steps, SPC and 1 rail, SBA THEREX: Review activities for home completion including frequent short walks, QS, SLR and heel slides for ROM purposes. Pt performs AA SLR with 10% assist from this therapist. Review pillow placement when resting and avoid pillow under the knee. ASSESSMENT: Demonstrating improving functional mobility today with better managed pain with less vertigo symptoms. Vertigo may be something that we address in outpatient therapy as necessary. Pt demonstrates good safety awareness with stair management. PLAN: Continue POC as pt is here in the hospital. Treatment time: 30 minutes [id number], [id number] Rose Dorsey PTA
--- NOTE | 2018-09-26 10:48 | W.PM.DS.N ---
Date of service: 09/26/18 Time of Service: 10:48 DS: Diagnosis Discharge Diagnosis (1) Primary osteoarthritis of right knee: Status: Chronic Discharge Plan Disposition Patient Disposition: HOME Condition: Good Discharge Details Reason For Visit: R KNEE DJD Admit Date/Time: 09/24/18 06:01 Admit Provider: Janes Gonzáles Attending Provider: Janes Gonzáles Primary Care Provider: Catia Means [facility] Course Hospital Course: Patient was admitted to the medical/surgical floor following the procedure. It was tolerated well without any notable medical, surgical, or anesthetic complications. Mobilization began postoperatively. The everett catheter was removed and voiding spontaneously. Vitals were stable. Physical therapy worked with the patient and was cleared for discharge home. No acute medical issues. Home Meds and New Rx's Prescriptions: New aspirin 81 mg tablet,delayed release (DR/EC) 81 mg PO BID Qty: 60 RF: 0 acetaminophen 500 mg tablet 1,000 mg PO Q8H PRN (Reason: pain) Qty: 90 RF: 3 ibuprofen 600 mg tablet 600 mg PO TID PRNQty: 90 RF: 3 oxycodone 5 mg tablet 5 mg PO Q4H Qty: 15 RF: 0 Continued omeprazole 20 mg capsule,delayed release(DR/EC) 20 mg PO DAILY RF: 0 atorvastatin 20 mg tablet 20 mg PO DAILY RF: 0 Flovent HFA 110 mcg/actuation HFA aerosol inhaler 1 puff IH BID RF: 0 calcium carbonate-vitamin D3 [Calcium 600 + D(3)] 600 mg(1,500mg) -400 unit tablet 1 tab PO DAILY RF: 0 lisinopril 20 MG tablet 20 mg PO DAILY RF: 0 ascorbic acid (vitamin C) [Vitamin C] 500 MG tablet,chewable 1,500 mg PO DAILY RF: 0 magnesium 250 MG tablet 500 mg PO DAILY RF: 0 montelukast [Singulair] 5 MG tablet,chewable 10 mg PO DAILY RF: 0 cetirizine [Zyrtec] 10 MG tablet,chewable 10 mg PO DAILY RF: 0 oxybutynin chloride 5 mg tablet 5 mg PO BID PRN (Reason: bladder spasms) Qty: 60 RF: 6 albuterol sulfate 8.5 GM HFA aerosol inhaler 2 puff Inhalation QID PRNRF: 0 fluticasone propionate 50 mcg/actuation [place],Suspension 2 spray INTRANASAL DAILY RF: 0 Discontinued ibuprofen 800 MG tablet 400 mg PO BID RF: 0 Discharge Instructions Additional Instructions: Dr. Gonzáles?s Total Knee Discharge Instructions Activity: The most important activity is to walk. You should try to take short walks a few times a day. It is important that when resting you work on keeping the knee straight. Avoid putting a pillow behind the knee as this will encourage flexion. Work on range of motion exercises as provided by Physical Therapy. - Start outpatient physical therapy within 2 weeks. - You should wear the KAELA hose on both legs for 4 weeks. Dressing: Keep the surgical dressing in place for at least one week. After the first week it may be removed and replace with light gauze and tape or nothing. It may get wet after 3 days but avoid soaking the dressing. If it gets wet, just lightly pat dry. Medications: - You should take Tylenol and anti-inflammatory (ibuprofen) as your primary pain control medications - You have been prescribed a stronger pain medication (Oxycodone) for breakthrough pain, take as needed as prescribed. - You will be taking Aspirin 81mg twice a day for DVT prevention unless instructed otherwise. - If you have constipation you should take Colace or Miralax (both [id number]). It takes most people 3-4 days to have a bowel movement. Follow-up: 2 weeks Stand Alone Forms: Nursing Discharge Form Referrals: Janes Gonzáles MD [ [facility] STAFF PHYSICIAN] - 10/09/18 1:45 pm Activity:: Activity as Tolerated Equipment/Supplies:: No Equipment Needed Diet:: As Tolerated Discharge Orders Discharge Orders: Discharge Order (Routine); Ordered 09/26/18 Ordered By: Janes Gonzáles DS: Data Vitals/I&O Vitals and I&O: Vital Signs Temperature 36.4 C L 09/26/18 08:40 Temperature Source Tympanic 09/26/18 08:40 Pulse 81 09/26/18 08:40 Pulse Rhythm Regular 09/26/18 04:45 Respiratory Rate 16 09/26/18 08:40 Respiratory Effort 09/26/18 04:45 Respiratory Depth Normal 09/26/18 04:45 Respiratory Pattern Normal 09/26/18 04:45 Blood Pressure 144/78 H 09/26/18 08:40 Pulse Oximetry 96 09/26/18 08:40 Respiratory End-tidal CO2 40 09/24/18 10:25 Oxygen Delivery Method Room Air 09/26/18 08:40 Oxygen Flow Rate 0 09/26/18 08:40 Pain Level 0 09/26/18 04:45 Intake & Output 09/25/18 09/25/18 09/26/18 11:59 23:59 11:59 Intake Total 1594.000 / 1594.000 490 / 490 Output Total 1750 / 1750 600 / 600 Balance -156.000 / -156.000 -110 / -110 Intake: IV 684.000 / 684.000 Oral 910 / 910 490 / 490 Output: Urine 1750 / 1750 600 / 600 Other: Urine Color Light Maribeth Yellow Yellow Urine Appearance Clear Clear Hematuria Urine Odor Normal Comment Patient voids in toilet. Unable to assess amount at this time. VERY SLIGHT TINGE OF PINK TO URINE. VOIDED A LARGE AMT IN TOILET. 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 Brother Heart disease Stroke Sister No problems noted. Social History Smoking/Tobacco Use Status: Former Tobacco Use Drug use: Never
[2018-09-26 12:27] VITALS: BP 115/68; PULSE 71; RESP 16; TEMP 36.9; O2SAT 94
--- NOTE | 2018-09-26 15:57 | PDOC.CMDIS ---
LACE Index Scoring Tool - Questions: Length of Stay (in days): 2 Acuity (Admit via E.D.?): No E.D. Visits: 0 - Answers: Total Score: 2 Risk of Readmission: Low Risk Care Management Discharge Reason for Hospitalization: Right knee DJD Discharge Plan: Andrey will be discharged home with no additional services. He will attend outpatient PT and will use a walker that he already has from a previous surgery. He will be transported via private automobile by family. Andrey will follow up with his PCP, surgeon and discharge plan of care. Patient/Family Education Needs: Discharge plan, limitations, follow up plan of care, Ask Me Three.
--- NOTE | 2018-09-27 13:37 | INDS_ITS ---
Date of service: 09/27/18 PT Notes Inpatient Physical Therapy Discharge Summary Dates: 09/24/2018 Dates of Service: 09/24/2018 through 09/26/2018 This is a clinical summary of care provided on the duration of dates listed above. No charge was made in the completion of this documentation. Referring Doctor: Janes Gonzáles MD PT Orders: PT CONSULT: Status post right TKA Precautions: Fall. Standard. WBAT on right LE. Patient Profile/Admitting Diagnosis: Patient is a 73-year-old male with past medical history significant for osteoarthritis of right knee and vertigo who is status post right total knee arthroplasty on postoperative day 0. 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 He was independent with all aspects of ADLs without the need for assistive ambulatory device nor adaptive equipment. Current Functional Limitations: Need for assistance for all transfers and ambulation task performance using front wheel walker Equipment Owned/DME: FWW, high-rise toilet, grab bars Subjective: NT Objective: General Observation: NT Pain: NT ROM: Right Upper Extremity: Shoulder Flexion WFL. Shoulder abduction WFL. Elbow flexion WFL. Wrist flexion WFL. Functional opening and closing of hand WFL. Left Upper Extremity: Shoulder Flexion WFL. Shoulder abduction WFL. Elbow flexion WFL. Wrist flexion WFL. Functional opening and closing of hand WFL. Right Lower Extremity: Hip flexion 0-70. Hip abduction WFL. Knee flexion 0-90. Knee extension -20. Ankle dorsiflexion WFL. Ankle plantarflexion WFL. Left Lower Extremity: Hip flexion WFL. Hip abduction WFL. Knee flexion WFL. Ankle dorsiflexion WFL. Ankle plantarflexion WFL. Managed medically Strength: Right Upper Extremity: Shoulder flexors 5/5. Shoulder abductors 5/5. Elbow flexors 5/5. Elbow extensors 5/5. Non Categorical Preschool Teacher strong. Left Upper Extremity: Shoulder flexors 5/5. Shoulder abductors 5/5. Elbow flexors 5/5. Elbow extensors 5/5. Non Categorical Preschool Teacher strong. Right Lower Extremity: Hip flexors 3-/5. Hip abductors 5/5. Knee flexors 3-/5. Knee extensors 3-/5 with poor R quadcripces activation due to post-op status and post-anesthesis effects. Ankle dorsiflexors 5/5. Ankle plantarflexors 5/5. Left Lower Extremity:Hip flexors 4/5. Hip abductors 4/5. Knee flexors 4/5. Knee extensors 4/5. Ankle dorsiflexors 5/5. Ankle plantarflexors 5/5. Sensation: Diminished on BLE as to pressure. Bed Mobility/Transfers: Rolling I Supine to sit I Sit to supine I Sit to stand SBA Stand to sit SBA Bed to chair SBA Chair to bed SBA Gait: Per PT documentation in the morning of 09/26/2018 patient was able to tolerate 100 feet x 2 with FW W with WBAT on the right requiring only as needed from DISTRICT PLANT SUPERINTENDENT. Patient also completed two 6 inch steps and 3 six 4 inch steps while holding onto rail with one hand and with SPC warmth requiring only SBA with minimal cueing for correct gait pattern and technique. Balance: Static Sitting: Good Dynamic Sitting: Good Static Standing: Fair Dynamic Standing: Fair Assessment: 73-year-old male with primary unilateral osteoarthritis of right knee status post right total knee arthroplasty. Patient presents with clinical signs and symptoms consistent with current/admitting diagnoses and post reparative status that have resulted to mobility limitations, gait instability, generalized weakness, and impairment of motor control as demonstrated by the following impairment level findings: 1. Decreased strength to R LE major muscle groups 2. Impaired sitting/standing balance 3. Impaired activity tolerance 4. Limitation of joint range of motion in the right hip and knee joints I think 5. Decreased right quadriceps activation due to post operative status and post anesthesia effects Impairments are contributing to the following functional limitations: 1. Dependent bed mobility skills 2. Increased dependence with transfers 3. Inability to safely ambulate without assistive device and physical assistance 4. Increase completion time for mobility ADL performance 5. Increased fall risk 6. Inability to negotiate steps alone safely Goals: Goals X1 week 1. Supine-Sit independent MET 2. Sit-Supine independent MET 3. Sit-Stand independent NOT MET 4. Stand-Sit independent NOT MET 5. Bed-Chair independent NOT MET 6. Chair-Bed independent NOT MET 7. Independent gait on level surface with use of least restrictive device for at least 300 feet without report of pain nor dyspnea NOT MET 8. Independent stair negotiation while holding onto bilateral rails for at least 10 steps without report of pain nor dyspnea NOT MET 9. Independent with home exercise program NOT MET 10. Good static and dynamic standing balance/tolerance NOT MET DISCHARGE RECOMMENDATIONS: No equipment needs at this time. Patient may benefit from home health PT services in order to progress mobility level using least restrictive assistive ambulatory device/using no device, assess home safety, identify additional equipment needs, and establish a functional maintenance program that will increase ability of patient to remain at home. TREATMENT CODE/TIME: NC. Thank you very much for this referral. Leigh Ann Blackburn PT, DPT, CLT [facility].
== END 2018-09-26 13:50 | disposition home or self-care (01) | DRG 470 ==
LOC: PDS 06:03 → MS 10:08
PROVIDERS: Admitting Provider Student in an Organized Health Care Education/Training Program; PCP Family Medicine; Visit Provider Student in an Organized Health Care Education/Training Program
PROC: 0SRC0J9 Replacement of Right Knee Joint with Synthetic Substitute, Cemented, Open Approach (ICD-10-PCS; CPT 27447; principal; 2018-09-24 07:30)
DX: M17.11 Unilateral primary osteoarthritis, right knee (principal); Z96.651 Presence of right artificial knee joint; I10 Essential (primary) hypertension; N40.1 Benign prostatic hyperplasia with lower urinary tract symptoms; R33.8 Other retention of urine; G89.18 Other acute postprocedural pain
CPT/HCPCS: 27447; 76942; 94640; 97110; 97162; 97530; NC; J0690; J1885; J2250; J2405; J3010

== ENCOUNTER 2018-10-09 14:02 | Outpatient (CLI) | payer MEDICARE, OTHER, SELFPAY ==
--- NOTE | 2018-10-09 13:59 | DI.RAD_ITS ---
SYMPTOMS/DIAGNOSIS: FIRST POSTOP LEG LENGTH EXAMINATION AND RIGHT KNEE: The patient has bilateral total knee replacements. The orthopedic hardware appears in good position. The left knee prosthesis is unchanged compared to the examination from 07/29/18. Since 07/29/18, there has been interval placement of a right total knee replacement. The orthopedic hardware appears in good position. No suspicious lucencies are seen in or about the orthopedic hardware. There is mild soft tissue swelling about the knee. Vascular calcifications are present. The right lower extremity measures 90.6 cm, the left lower extremity measures 89.3 cm.
== END 2018-10-09 14:22 ==
PROVIDERS: PCP Family Medicine; Referring Provider Family Medicine; Visit Provider Student in an Organized Health Care Education/Training Program
DX: Z96.651 Presence of right artificial knee joint (principal); Z47.1 Aftercare following joint replacement surgery; M17.11 Unilateral primary osteoarthritis, right knee; R31.9 Hematuria, unspecified
CPT/HCPCS: 73560; 77073

== ENCOUNTER → 2018-11-06 13:03 | Outpatient (BNVA) | payer MEDICARE, OTHER, SELFPAY | PROVIDERS: PCP Family Medicine; Referring Provider Family Medicine; Visit Provider Student in an Organized Health Care Education/Training Program | DX: Z96.651 Presence of right artificial knee joint (principal); Z47.1 Aftercare following joint replacement surgery ==

== ENCOUNTER 2018-11-12 13:39 | Outpatient (CLI) | payer MEDICARE, OTHER, SELFPAY ==
[2018-11-14 09:20] LABS: PSA, Diagnostic 0.7 ng/ml (0-6.5)
== END 2018-11-12 13:59 ==
PROVIDERS: Visit Provider Urology
DX: C61 Malignant neoplasm of prostate (principal)
CPT/HCPCS: 84153

== ENCOUNTER → 2018-11-22 10:53 | Outpatient (BNVA) | payer MEDICARE, OTHER, SELFPAY | PROVIDERS: Visit Provider Urology | DX: C61 Malignant neoplasm of prostate (principal); R35.0 Frequency of micturition | CPT/HCPCS: 99213 ==

== ENCOUNTER → 2018-12-18 12:53 | Outpatient (BNVA) | payer MEDICARE, OTHER, SELFPAY | PROVIDERS: Referring Provider Family Medicine; Visit Provider Student in an Organized Health Care Education/Training Program | DX: Z96.651 Presence of right artificial knee joint (principal); Z47.1 Aftercare following joint replacement surgery ==

== ENCOUNTER 2019-01-18 15:33 | Emergency (ER) | payer MEDICARE, OTHER, SELFPAY ==
[2019-01-18] VITALS (37 sets, daily range): BP systolic 142–180; BP diastolic 76–98; PULSE 70–91; RESP 12–24; TEMP 36.5–36.7; O2SAT 95–100
--- NOTE | 2019-01-18 16:02 | DI.RAD_ITS ---
EXAM: XR CHEST 2V PA LATERAL INDICATION: Expressive aphasia. TECHNIQUE: 2D digital imaging was performed. FINDINGS: Hyperinflation of the lungs is demonstrated. There is no evidence of an infiltrate. There is no evid ence of a pleural effusion or pneumothorax. The heart is not enlarged. The hilar structures, mediast inum and tracheal air column are intact. No acute bony abnormality is seen. IMPRESSION: There are no acute findings in the chest.
--- NOTE | 2019-01-18 16:03 | DI.CT_ITS ---
EXAM: CT HEAD - STROKE PROTOCOL CLINICAL HISTORY: 1 hr expressive aphasia. TECHNIQUE: The examination was performed according to the usual protocol without contrast administra tion. FINDINGS: There is no evidence of an intra or extra-axial hemorrhage. Small old basal ganglia lacunar infarcts are demonstrated. There are findings consistent with small vessel disease. The ventricles are mily l. There is no skull fracture. There is nothing to suggest acute sinusitis. The mastoid air cells are unremarkable. The soft tissues are unremarkable. IMPRESSION: No evidence of an acute intracranial abnormality.
--- NOTE | 2019-01-18 16:03 | W.ED.GENAD ---
Discharge Plan Disposition Patient Disposition: [facility] Condition: Stable Discharge Details Chief Complaint: CVA/TIA Clinical Impression: Acute CVA (cerebrovascular accident) Primary Care Provider: Unknown,Unknown ED Provider: Andrey Guzman Home Meds and New Rx's Prescriptions: No Action omeprazole 20 mg capsule,delayed release(DR/EC) 20 mg PO DAILY RF: 0 atorvastatin 20 mg tablet 20 mg PO DAILY RF: 0 Flovent HFA 110 mcg/actuation HFA aerosol inhaler 1 puff IH BID RF: 0 calcium carbonate-vitamin D3 [Calcium 600 + D(3)] 600 mg(1,500mg) -400 unit tablet 1 tab PO DAILY RF: 0 oxybutynin chloride 5 mg tablet 5 mg PO BID PRN (Reason: bladder spasms) Qty: 180 RF: 4 ibuprofen [Motrin IB] 200 mg capsule 600 mg PO BID PRNRF: 0 lisinopril 20 MG tablet 20 mg PO DAILY RF: 0 ascorbic acid (vitamin C) [Vitamin C] 500 MG tablet,chewable 1,500 mg PO DAILY RF: 0 magnesium 250 MG tablet 500 mg PO DAILY RF: 0 montelukast [Singulair] 5 MG tablet,chewable 10 mg PO DAILY RF: 0 cetirizine [Zyrtec] 10 MG tablet,chewable 10 mg PO DAILY RF: 0 albuterol sulfate 8.5 GM HFA aerosol inhaler 2 puff Inhalation QID PRNRF: 0 fluticasone propionate 50 mcg/actuation [place],Suspension 2 spray INTRANASAL DAILY RF: 0 aspirin 81 mg tablet,delayed release (DR/EC) 81 mg PO BID Qty: 60 RF: 0 acetaminophen 500 mg tablet 1,000 mg PO Q8H PRN (Reason: pain) Qty: 90 RF: 3 ibuprofen 600 mg tablet 600 mg PO TID PRNQty: 90 RF: 3 Medical Decision Making 74yom with history 2 days ago of transient R arm tingling sensation and unsteadiness of gait, now presents with 1+ hr of expressive aphasia that began at 3 PM. Cranial nerves are otherwise without defecit. He is able to stand at the bedside, walk with narrow-base gait, follows two-step command. Referred for stat CT scan, laboratories, EKG and chest x-ray. EKG reveals normal sinus rhythm, rate of 75, the QRS is narrow, no ST segment elevation present. CT scan of the head without acute intracranial bleed or mass. CXR unremarkable per on-call radiology. Laboratories White count 8.4, hemoglobin 12, hematocrit 36, platelets 183, chemistries unremarkable, calcium 8.3, albumin 3.4. CT reviewed and case discussed with Dr. Leahy of [facility] neurology. Case also discussed with neuro intensive team, patient accepted to neuro intensive care on service of Dr. Gentile.. Patient is a candidate for thrombolysis given that he had resolution of his pre-standing right arm symptoms and now abrupt onset at 3 PM of expressive aphasia. I consented the patient and his for thrombolysis and initiated approximately 1800. Alteplase 0.9mg/kg with 10% as bolus and the remaining 90% over [facility]. [facility] Data Lab results reviewed: Yes I reviewed the patient's lab results. Labs: Laboratory Results - last 24 hr 01/18/19 01/18/19 16:10 16:10 WBC 8.40 RBC 3.96 L Hgb 12.1 L Hct 36.1 L MCV 91.2 MCH 30.6 MCHC 33.5 RDW 14.0 Plt Count 183 MPV 8.9 Immature Gran % 0.2 Neutrophils % 73.9 Lymphocytes % 16.5 Monocytes % 7.4 Eosinophils % 1.8 Basophils % 0.2 Absolute Neutrophils 6.20 Absolute Lymphocytes 1.39 Absolute Monocytes 0.62 Absolute Eosinophils 0.15 Absolute Basophils 0.02 Sodium 136 Potassium 4.0 Chloride 102 Carbon Dioxide 27.7 Anion Gap 6.3 BUN 14 Creatinine 0.77 Estimated GFR/1.73 m2 >= 60.00 Glucose 96 Calcium 8.3 L Magnesium 1.8 Total Bilirubin 0.5 AST 15 ALT 15 L Alkaline Phosphatase 65 Troponin I < 0.05 Total Protein 6.3 L Albumin 3.4 HPI General Mode of arrival: ambulatory. Date/Time Provider Initiated Documentation: 01/18/19 15:41. Limitations to Documentation: no limitations. Information obtained by: patient and family. History of Present Illness 74 year old M presents to the emergency department with the chief complaint of Expressive aphasia at approx 3pm. 2 days ago had transient right arm numb, described as mild, Quality is described as constant, and is localized to the head, left and upper extremity. Patient reports no radiation. Patient started experiencing this day(s) and it has been intermittent. No relieving factors improve symptom(s), No exacerbating factors reported . Patient notes other (no fall or headache, not anticoagulated). Patient did receive the following treatments prior to arrival, none Related Data Home Medications Medication Instructions Recorded Confirmed ascorbic acid (vitamin C) [Vitamin 1,500 mg PO DAILY tab.chew NS 07/09/12 01/18/19 C] lisinopril 20 mg PO DAILY tab-cap NS 07/09/12 01/18/19 magnesium 500 mg PO DAILY NS 07/09/12 01/18/19 albuterol sulfate 2 puff INHALATION QID PRN 01/09/14 01/18/19 cetirizine [Zyrtec] 10 mg PO DAILY tab-cap 10/05/15 01/18/19 montelukast [Singulair] 10 mg PO DAILY tab-cap 10/05/15 01/18/19 atorvastatin 20 mg tablet 20 mg PO DAILY 09/19/18 01/18/19 calcium carbonate 600 mg (1,500 1 tab PO DAILY 09/19/18 01/18/19 mg)-vitamin D3 400 unit tablet fluticasone propionate 2 spray INTRANASAL DAILY 09/19/18 01/18/19 fluticasone propionate 110 1 puff IH BID 09/19/18 01/18/19 mcg/actuation HFA aerosol inhaler omeprazole 20 mg capsule,delayed 20 mg PO DAILY 09/19/18 01/18/19 release acetaminophen 1,000 mg PO Q8H PRN #90 tab 09/26/18 01/18/19 aspirin 81 mg PO BID #60 tab 09/26/18 01/18/19 ibuprofen 600 mg PO TID PRN #90 tab 09/26/18 01/18/19 oxybutynin chloride 5 mg tablet 5 mg PO BID PRN #180 tab 11/22/18 01/18/19 ibuprofen 200 mg capsule 600 mg PO BID PRN cap 12/18/18 01/18/19 Previous Rx's Medication Instructions Recorded acetaminophen 1,000 mg PO Q8H PRN #90 tab 09/26/18 aspirin 81 mg PO BID #60 tab 09/26/18 ibuprofen 600 mg PO TID PRN #90 tab 09/26/18 oxybutynin chloride 5 mg tablet 5 mg PO BID PRN #180 tab 11/22/18 Allergies Allergy/AdvReac Type Severity Reaction Status Date / Time shellfish derived Allergy Severe Anaphylaxsi Unverified 01/18/19 15:45 s Sulfa (Sulfonamide AdvReac Nausea Unverified 01/18/19 15:45 Antibiotics) General Stated Complaint: CVA/TIA BENITA: 3 Review of Systems Review of Systems Narrative: 6 systems reviewed and otherwise neg. 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 STATES IT WAS FOUND OUT DURING THE TURP PROCEDURE, AND IT'S UNDER ACTIVE SURVIELLENCE Rhinitis (Chronic 01/26/14) Tinnitus Tremor Vertigo (Acute) onset per pt New Year's day 2018 Surgical History Colonoscopy - MAC (05/09/17) Hx of transurethral resection of prostate (Acute) S/P tonsillectomy (Acute) Status post appendectomy (Acute) Status post bilateral inguinal hernia repair (Acute) Reports bilateral inguinal hernia repair x2 Status post total left knee replacement (Chronic) Patient estimates surgery approximately 2005 Dr. Mcintyre Status post trigger finger release (Acute) Left hand Family History Mother Cholecystolithiasis Father , from either [place] or [place] Unsure of blood clot location Happened following prostate surgery No problems noted. Brother Heart disease S/P stents Stroke Sister , Had pacemaker No problems noted. Social History Smoking/Tobacco Use Status: Former Tobacco Use Drug use: Never Exam Narrative Exam Narrative: GEN: awake, alert. Pleasant, well groomed, interactive. HEAD: Normocephalic, atraumatic ENT: Mucous membranes moist, oropharynx unremarkable, External ear exam unremarkable EYES: PERRL, EOMI NECK: Full ROM, no AVIVA, no menigismus CHEST/RESP: Nontender, clear to auscultation bilateral, no wheeze/rhonchi/rales CARDIOVASCULAR: RRR, no murmur, rub ashish. 2+ Rad pulse bilateral ABDOMEN: Soft, nontender, no mass. +Bowel sounds EXT: Full ROM, no edema, no rash Neuro: Patient demonstrates some mild expressive aphasia with mild word salad but is conversant, interactive. No facial droop. Bilateral [id number] intact. Gait narrow based with good heel strike, patient able to walk on his heels. With Romberg is unable to maintain balance but opens his eyes and maintains balance.. Psych: Speech nonfluent, thoughts seem congruent, affect mily Course Vital Signs Vital signs: Vital Signs Temperature 36.7 C 01/18/19 15:40 Pulse 84 01/18/19 15:40 Respiratory Rate 16 01/18/19 15:40 Blood Pressure 156/92 H 01/18/19 15:40 Pulse Oximetry 96 01/18/19 15:40 Temperature 36.7 C 01/18/19 15:40 Temperature Source Skin 01/18/19 15:40 Pulse 84 01/18/19 15:40 Respiratory Rate 16 01/18/19 15:40 Respiratory Effort Non-Labored 01/18/19 15:40 Blood Pressure 156/92 H 01/18/19 15:40 Blood Pressure Position Sitting 01/18/19 15:40 Pulse Oximetry 96 01/18/19 15:40 Oxygen Delivery Method Room Air 01/18/19 15:40 Oxygen Flow Rate 0 01/18/19 15:40 Pain Level 0 01/18/19 15:40 Critical Care Time Critical Care Time Critical Care Time: Yes Total Critical Care Time: 50 Attestation: Critical care time for evaluation and bedside management of the patient, discussion with consultants at tertiary care facility, family, review of records..
[2019-01-18 16:20] LABS: Abs Immature Grans 0.02 k/cumm (0.0-0.09); Absolute Basophil Count 0.02 k/cumm (0.0-0.2); Absolute Eosinophil Count 0.15 k/cumm (0.0-0.7); Absolute Lymphocyte Count 1.39 k/cumm (1.2-3.4); Absolute Monocyte Count 0.62 k/cumm (0.11-0.7); Basophils % 0.2; Eosinophils % 1.8; HCT 36.1 % (40.0-50.0); HGB 12.1 g/dL (13.5-17.5); Immature Grans % 0.2; Lymphocytes % 16.5; Mean Corp. HGB Concentration 33.5 g/dL (32.0-36.0); Mean Corpuscular Hemoglobin 30.6 pg (27.0-33.0); Mean Corpuscular Volume 91.2 fL (80-95); Mean Platelet Volume 8.9 fL (8.0-11.0); Monocytes % 7.4; Neutrophils % 73.9; Platelet Count 183 x1000/uL (130-400); RBC 3.96 m/cumm (4.50-6.00)
--- NOTE | 2019-01-18 16:21 | DI.VRAD_ITS ---
PROCEDURE INFORMATION: Exam: CT Head Without Contrast Exam date and time: 01/18/2019 4:04 PM Clinical history: 74 years old, male; Other: 1 hour expressive aphasia TECHNIQUE: Imaging protocol: Computed tomography of the head without contrast. Radiation optimization: All CT scans at this facility use at least one of these dose optimization techniques: automated exposure control; mA and/or kV adjustment per patient size (includes targeted exams where dose is matched to clinical indication); or iterative reconstruction. Other technique: STROKE PROTOCOL was implemented. COMPARISON: No relevant prior studies available. FINDINGS: Brain: No hemorrhage. 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 No mass effect. Ventricles: Normal. No ventriculomegaly. Bones/joints: Unremarkable. No acute fracture. Sinuses: No acute sinusitis. Mastoid air cells: Unremarkable. Soft tissues: Unremarkable. IMPRESSION: No acute intracranial abnormality. ASSESSMENT: ASPECTS ([place] Stroke Program Early CT Score) is 10. Dictated and Authenticated by: Chandana Radford MD. Ordering:TIERRA Balderas MD
--- NOTE | 2019-01-18 16:29 | DI.VRAD_ITS ---
PROCEDURE INFORMATION: Exam: XR Chest, 2 Views Exam date and time: 01/18/2019 4:04 PM Clinical history: 74 years old, male; Other: Expressive aphasia TECHNIQUE: Imaging protocol: XR of the chest Views: 2 views. COMPARISON: US AAA SCREENING 07/18/2017 11:51 AM FINDINGS: Lungs: Hyperinflation. No consolidation. Pleural space: Unremarkable. No pleural effusion. No pneumothorax. Heart/Mediastinum: Unremarkable. No cardiomegaly. Bones/joints: No acute findings. IMPRESSION: No acute findings. Dictated and Authenticated by: Chandana Radford MD. Ordering:TIERRA Balderas MD
[2019-01-18 16:42] LABS: ALT 15 U/L (16-63); AST 15 U/L (15-37); Albumin 3.4 g/dL (3.4-5.0); Alkaline Phosphatase 65 U/L (46-116); Anion Gap 6.3 mmol/L (3-11); BUN 14 mg/dL (7-18); Bilirubin, Total 0.5 mg/dL (0.2-1.0); CO2 27.7 mmol/L (21.0-32.0); CREATININE 0.77 mg/dL (0.70-1.30); Calcium 8.3 mg/dL (8.5-10.1); Chloride 102 mmol/L (98-107); Glucose 96 mg/dL (70-100); Magnesium 1.8 mg/dL (1.8-2.4); Sodium 136 mmol/L (136-145); Total Protein 6.3 g/dL (6.4-8.2); Troponin I < 0.05 ng/mL (0.00-0.06)
[2019-01-18] MEDS: Normal Saline 1,000 ML 150 ML IV (16:55)
--- NOTE | 2019-01-18 16:56 | NUR.NOTE ---
pt provided with urinal at bedside placed back on cardaic monitor family instructed use call [facility] for further asisstance call placed in reach of family/pt Nursing Note:
[2019-01-18 18:14] LABS: PTT Activated 25.2 sec (21.0-31.4); Prothrombin Time 10.3 sec (9.3-11.0)
--- NOTE | 2019-01-18 18:31 | NUR.NOTE ---
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
== END 2019-01-18 19:15 | disposition short-term general hospital (02) ==
PROVIDERS: Emergency Provider Emergency Medicine
DX: I63.9 Cerebral infarction, unspecified (principal); I10 Essential (primary) hypertension
CPT/HCPCS: 36415; 36416; 80053; 82962; 93005; 96361; 96365; 99291; 70450; 71046; 83735; 84484; 85025; 85610; 85730; 93010; J2997

== ENCOUNTER 2019-01-23 16:24 | Inpatient (IN) | payer MEDICARE, OTHER, SELFPAY ==
[2019-01-23] VITALS (13 sets, daily range): BP systolic 103–156; BP diastolic 47–117; PULSE 85–111; RESP 14–26; TEMP 37.7–39.6; O2SAT 94–97
--- NOTE | 2019-01-23 16:55 | DI.RAD_ITS ---
EXAM: XR CHEST 2V PA LATERAL INDICATION: fever, weakness, r/o pneumonia. COMPARISON: XR CHEST 2V PA LATERAL from 01/18/2019 TECHNIQUE: 2D digital imaging was performed. FINDINGS: The heart is mildly enlarged. There is mild prominence of pulmonary interstitial markings, grossly u nchanged from 01/18 with and apparent poor inspiration on the PA view. No focal consolidation seen. No pleural effusion seen. IMPRESSION: No evidence of acute process.
[2019-01-23] MEDS: Normal Saline 250 ML IV (17:10)
[2019-01-23 17:18] LABS: Abs Immature Grans 0.03 k/cumm (0.0-0.09); Absolute Basophil Count 0.01 k/cumm (0.0-0.2); Absolute Eosinophil Count 0.01 k/cumm (0.0-0.7); Absolute Lymphocyte Count 0.63 k/cumm (1.2-3.4); Absolute Monocyte Count 0.85 k/cumm (0.11-0.7); Basophils % 0.1; Eosinophils % 0.1; HCT 36.2 % (40.0-50.0); HGB 12.4 g/dL (13.5-17.5); Immature Grans % 0.2; Lymphocytes % 4.7; Mean Corp. HGB Concentration 34.3 g/dL (32.0-36.0); Mean Corpuscular Hemoglobin 30.8 pg (27.0-33.0); Mean Corpuscular Volume 89.8 fL (80-95); Mean Platelet Volume 8.8 fL (8.0-11.0); Monocytes % 6.4; Neutrophils % 88.5; Platelet Count 201 x1000/uL (130-400); RBC 4.03 m/cumm (4.50-6.00); RBC Distribution Width 13.8 % (11.8-14.1); White Blood Cell Count 13.33 k/cumm (4.4-10.8)
[2019-01-23 17:19] LABS: Lactate 1.4 mmol/L (0.6-1.4)
[2019-01-23 17:34] LABS: Bilirubin Negative (Negative); Blood Small (Negative); Clarity Cloudy (Clear); Glucose Negative (Negative); Ketones Negative (Negative); Leukocyte Esterase Moderate (Negative); Nitrite Positive (Negative); Urobilinogen 0.2 EU/dL (Up TO 0.2); pH 5.5 (5-8)
[2019-01-23 17:41] LABS: ALT 22 U/L (16-63); AST 18 U/L (15-37); Albumin 3.6 g/dL (3.4-5.0); Alkaline Phosphatase 68 U/L (46-116); Anion Gap 8.4 mmol/L (3-11); BUN 13 mg/dL (7-18); Bilirubin, Total 0.5 mg/dL (0.2-1.0); CO2 25.6 mmol/L (21.0-32.0); CREATININE 0.79 mg/dL (0.70-1.30); Calcium 8.6 mg/dL (8.5-10.1); Chloride 99 mmol/L (98-107); Glucose 107 mg/dL (70-100); Magnesium 1.7 mg/dL (1.8-2.4); Potassium 3.6 mmol/L (3.5-5.1); Sodium 133 mmol/L (136-145); Total Protein 6.6 g/dL (6.4-8.2)
[2019-01-23 17:42] LABS: Bacteria Many HPF (Negative); Casts Negative LPF (Negative); Crystals Negative HPF (Negative); Epithelial Cells Negative HPF (Negative); Mucus Negative (Negative); Other Cells Negative (Negative); RBC Negative (0-2); WBC >50 HPF (0-5)
[2019-01-23 17:43] LABS: C & S Indicated? Yes
[2019-01-23 17:50] LABS: Troponin I < 0.05 ng/mL (0.00-0.06)
--- NOTE | 2019-01-23 17:51 | W.ED.GENAD ---
Discharge Plan Disposition Patient Disposition: [facility] INPATIENT Condition: Stable Discharge Details Chief Complaint: Fever Clinical Impression: HCAP (healthcare-associated pneumonia), UTI (urinary tract infection), Fever Primary Care Provider: Unknown,Unknown ED Provider: Abbie Barnhart Home Meds and New Rx's Prescriptions: No Action omeprazole 20 mg capsule,delayed release(DR/EC) 20 mg PO DAILY RF: 0 atorvastatin 20 mg tablet 20 mg PO DAILY RF: 0 Flovent HFA 110 mcg/actuation HFA aerosol inhaler 1 puff IH BID RF: 0 calcium carbonate-vitamin D3 [Calcium 600 + D(3)] 600 mg(1,500mg) -400 unit tablet 1 tab PO DAILY RF: 0 oxybutynin chloride 5 mg tablet 5 mg PO BID PRN (Reason: bladder spasms) Qty: 180 RF: 4 ibuprofen [Motrin IB] 200 mg capsule 600 mg PO BID PRNRF: 0 lisinopril 20 MG tablet 20 mg PO DAILY RF: 0 ascorbic acid (vitamin C) [Vitamin C] 500 MG tablet,chewable 1,500 mg PO DAILY RF: 0 magnesium 250 MG tablet 500 mg PO DAILY RF: 0 montelukast [Singulair] 5 MG tablet,chewable 10 mg PO DAILY RF: 0 cetirizine [Zyrtec] 10 MG tablet,chewable 10 mg PO DAILY RF: 0 albuterol sulfate 8.5 GM HFA aerosol inhaler 2 puff Inhalation QID PRNRF: 0 fluticasone propionate 50 mcg/actuation [place],Suspension 2 spray INTRANASAL DAILY RF: 0 acetaminophen 500 mg tablet 1,000 mg PO Q8H PRN (Reason: pain) Qty: 90 RF: 3 ibuprofen 600 mg tablet 600 mg PO TID PRNQty: 90 RF: 3 aspirin 81 mg tablet,delayed release (DR/EC) 81 mg PO DAILY RF: 0 valacyclovir 1 gram Tablet 1,000 mg PO TID RF: 0 levetiracetam 500 mg Tablet 500 mg PO BID RF: 0 Medical Decision Making 1640 -- 74-year-old male transferred to [facility] recently for TIA discharged yesterday presents with URI symptoms for the past 2 days, and shaking chills and fever today at home. Temp 103.3 oral on arrival. Heart rate low 100s. Blood pressure moderately hypertensive. Normal oxygen saturation on room air. No signs of respiratory distress. No urinary symptoms. Normal ENT exam. Diminished breath sounds in bases bilaterally. Abdomen soft nontender. Normal exam. Differential diagnosis includes influenza, strep pharyngitis, pneumonia, UTI. Will place an IV, bolus IV fluids, screening labs, lactate, blood cultures, urinalysis, rapid strep, influenza swab, chest x-ray and give a dose of Tylenol. EKG notes a rate of 113, sinus with no acute ST-T wave ischemic changes. Labs and imaging reviewed. White blood cell count 13, lactate 1.4, troponin negative. Urinalysis notes findings consistent with UTI. Influenza and rapid strep negative. Chest x-ray notes involving left lower lobe pneumonia. Will treat for HCAP. We will continue IV fluids. 1829 -- d/w hospitalist - accepts pt for admission. Medical Records Medical records reviewed: Yes I reviewed the patient's medical records. Imaging Data Radiologic Study: Radiologist's impression: XR Chest, 2 Views Exam date and time: 01/23/2019 5:51 PM Clinical history: 74 years old, male; Other: Fever, weakness, R/O pneumonia TECHNIQUE: Imaging protocol: XR of the chest Views: 2 views. COMPARISON: CR XR CHEST 2V PA LATERAL 01/18/2019 4:23 PM FINDINGS: Lungs: Persistent, diffuse, minimal interstitial prominence. Left lower lobe retrocardiac density has increased. Pleural space: Unremarkable. No pleural effusion. No pneumothorax. Heart/Mediastinum: Unremarkable. No cardiomegaly. Bones/joints: Degenerative changes in the spine. IMPRESSION: 1. Persistent interstitial prominence which without multiple possible etiologies including scarring, interstitial inflammatory or infectious process or interstitial edema. 2. Atelectasis or evolving left lower lobe infiltrate. Lab Data Lab results reviewed: Yes I reviewed the patient's lab results. Labs: 01/23/19 18:44 Tonsil - Not Specified Streptococcus Screen ([place]) - Pending 01/23/19 17:55 Nasopharynx Influenza Types A,B Antigen - Final 01/23/19 17:25 Urine - Reflex from Ua Urine Culture - Pending 01/23/19 17:22 Blood Blood Culture - Pending 01/23/19 15:25 Blood Blood Culture - Pending Laboratory Tests Range/Units 01/23/19 01/23/19 01/23/19 15:25 15:25 15:25 WBC (4.4-10.8) k/cumm 13.33 H RBC (4.50-6.00) m/cumm 4.03 L Hgb (13.5-17.5) g/dL 12.4 L Hct (40.0-50.0) % 36.2 L MCV (80-95) fL 89.8 MCH (27.0-33.0) pg 30.8 MCHC (32.0-36.0) g/dL 34.3 RDW (11.8-14.1) % 13.8 Plt Count (130-400) x1000/uL 201 MPV (8.0-11.0) fL 8.8 Immature Gran % 0.2 Neutrophils % 88.5 Lymphocytes % 4.7 Monocytes % 6.4 Eosinophils % 0.1 Basophils % 0.1 Absolute Neutrophils (1.2-6.7) k/cumm 11.80 H Absolute Lymphocytes (1.2-3.4) k/cumm 0.63 L Absolute Monocytes (0.11-0.7) k/cumm 0.85 H Absolute Eosinophils (0.0-0.7) k/cumm 0.01 Absolute Basophils (0.0-0.2) k/cumm 0.01 Sodium (136-145) mmol/L 133 L Potassium (3.5-5.1) mmol/L 3.6 Chloride (98-107) mmol/L 99 Carbon Dioxide (21.0-32.0) mmol/L 25.6 Anion Gap (3-11) mmol/L 8.4 BUN (7-18) mg/dL 13 Creatinine (0.70-1.30) mg/dL 0.79 Estimated GFR/1.73 m2 (mL/min/1.73m2) >= 60.00 Glucose (70-100) mg/dL 107 H Lactate (0.6-1.4) mmol/L 1.4 Calcium (8.5-10.1) mg/dL 8.6 Magnesium (1.8-2.4) mg/dL 1.7 L Total Bilirubin (0.2-1.0) mg/dL 0.5 AST (15-37) U/L 18 ALT (16-63) U/L 22 Alkaline Phosphatase (46-116) U/L 68 Troponin I (0.00-0.06) ng/mL < 0.05 Total Protein (6.4-8.2) g/dL 6.6 Albumin (3.4-5.0) g/dL 3.6 Urine Color (Yellow) Urine Clarity (Clear) Urine pH (5-8) Ur Specific [place] (1.005-1.025) Urine Protein (Negative) mg/dL Urine Ketones (Negative) mg/dL Urine Blood (Negative) Urine Nitrite (Negative) Urine Bilirubin (Negative) Urine Urobilinogen (Up TO 0.2) EU/dL Ur Leukocyte Esterase (Negative) Urine RBC (0-2) Urine WBC (0-5) HPF Ur Epithelial Cells (Negative) HPF Urine Crystals (Negative) HPF Urine Bacteria (Negative) HPF Urine Casts (Negative) LPF Urine Mucus (Negative) Urine Other (Negative) Ur Culture Indicated? Urine Glucose (Negative) mg/dL Range/Units 01/23/19 17:25 WBC (4.4-10.8) k/cumm RBC (4.50-6.00) m/cumm Hgb (13.5-17.5) g/dL Hct (40.0-50.0) % MCV (80-95) fL MCH (27.0-33.0) pg MCHC (32.0-36.0) g/dL RDW (11.8-14.1) % Plt Count (130-400) x1000/uL MPV (8.0-11.0) fL Immature Gran % Neutrophils % Lymphocytes % Monocytes % Eosinophils % Basophils % Absolute Neutrophils (1.2-6.7) k/cumm Absolute Lymphocytes (1.2-3.4) k/cumm Absolute Monocytes (0.11-0.7) k/cumm Absolute Eosinophils (0.0-0.7) k/cumm Absolute Basophils (0.0-0.2) k/cumm Sodium (136-145) mmol/L Potassium (3.5-5.1) mmol/L Chloride (98-107) mmol/L Carbon Dioxide (21.0-32.0) mmol/L Anion Gap (3-11) mmol/L BUN (7-18) mg/dL Creatinine (0.70-1.30) mg/dL Estimated GFR/1.73 m2 (mL/min/1.73m2) Glucose (70-100) mg/dL Lactate (0.6-1.4) mmol/L Calcium (8.5-10.1) mg/dL Magnesium (1.8-2.4) mg/dL Total Bilirubin (0.2-1.0) mg/dL AST (15-37) U/L ALT (16-63) U/L Alkaline Phosphatase (46-116) U/L Troponin I (0.00-0.06) ng/mL Total Protein (6.4-8.2) g/dL Albumin (3.4-5.0) g/dL Urine Color (Yellow) Yellow Urine Clarity (Clear) Cloudy Urine pH (5-8) 5.5 Ur Specific [place] (1.005-1.025) 1.020 Urine Protein (Negative) mg/dL Negative Urine Ketones (Negative) mg/dL Negative Urine Blood (Negative) Small H Urine Nitrite (Negative) Positive H Urine Bilirubin (Negative) Negative Urine Urobilinogen (Up TO 0.2) EU/dL 0.2 Ur Leukocyte Esterase (Negative) Moderate H Urine RBC (0-2) Negative Urine WBC (0-5) HPF >50 Ur Epithelial Cells (Negative) HPF Negative Urine Crystals (Negative) HPF Negative Urine Bacteria (Negative) HPF Many Urine Casts (Negative) LPF Negative Urine Mucus (Negative) Negative Urine Other (Negative) Negative Ur Culture Indicated? Yes Urine Glucose (Negative) mg/dL Negative ECG Data Attestation: I personally reviewed and interpreted this ECG (s) as follows: Interpretation: rate of 113, sinus, no acute ST elevation or depression. NH 152. QTc 436. QRS 96. HPI General Mode of arrival: ambulatory. Date/Time Provider Initiated Documentation: 01/23/19 16:29. Limitations to Documentation: no limitations. Information obtained by: patient. HPI Narrative: Patient is a 74-year-old male with a history of asthma, hypertension, overactive bladder, recent TIA who presents with runny nose, sore throat and dry cough for the past 2 days and shaking chills, fever since this afternoon. Patient was discharged from [facility] yesterday after transferred there from the ER for acute stroke for aphasia. He was given TPA at that time. MRI per records was negative. He had an EEG which noted possible encephalitis which was followed by lumbar puncture and was negative for infection. He had been started on Keppra and it appears acyclovir with plan for follow-up outpatient MRI and EEG. denies any acute strokelike symptoms today. Patient states he started with URI symptoms yesterday while at [facility]. He denies chest pain, shortness of breath, headache, blurry vision, abdominal pain, vomiting, diarrhea or new urinary symptoms. He does have chronic urinary frequency. He denies any recent tick bite, rash, travel. He did not take any ibuprofen or Tylenol at home prior to arrival. Related Data Home Medications Medication Instructions Recorded Confirmed ascorbic acid (vitamin C) [Vitamin 1,500 mg PO DAILY tab.chew NS 07/09/12 01/23/19 C] lisinopril 20 mg PO DAILY tab-cap NS 07/09/12 01/23/19 magnesium 500 mg PO DAILY NS 07/09/12 01/23/19 albuterol sulfate 2 puff INHALATION QID PRN 01/09/14 01/23/19 cetirizine [Zyrtec] 10 mg PO DAILY tab-cap 10/05/15 01/23/19 montelukast [Singulair] 10 mg PO DAILY tab-cap 10/05/15 01/23/19 atorvastatin 20 mg tablet 20 mg PO DAILY 09/19/18 01/23/19 calcium carbonate 600 mg (1,500 1 tab PO DAILY 09/19/18 01/23/19 mg)-vitamin D3 400 unit tablet fluticasone propionate 2 spray INTRANASAL DAILY 09/19/18 01/23/19 fluticasone propionate 110 1 puff IH BID 09/19/18 01/23/19 mcg/actuation HFA aerosol inhaler omeprazole 20 mg capsule,delayed 20 mg PO DAILY 09/19/18 01/23/19 release acetaminophen 1,000 mg PO Q8H PRN #90 tab 09/26/18 01/23/19 ibuprofen 600 mg PO TID PRN #90 tab 09/26/18 01/23/19 oxybutynin chloride 5 mg tablet 5 mg PO BID PRN #180 tab 11/22/18 01/23/19 ibuprofen 200 mg capsule 600 mg PO BID PRN cap 12/18/18 01/23/19 aspirin 81 mg PO DAILY 01/23/19 01/23/19 levetiracetam 500 mg PO BID 01/23/19 01/23/19 valacyclovir 1,000 mg PO TID 01/23/19 01/23/19 Previous Rx's Medication Instructions Recorded acetaminophen 1,000 mg PO Q8H PRN #90 tab 09/26/18 ibuprofen 600 mg PO TID PRN #90 tab 09/26/18 oxybutynin chloride 5 mg tablet 5 mg PO BID PRN #180 tab 11/22/18 Allergies Allergy/AdvReac Type Severity Reaction Status Date / Time shellfish derived Allergy Severe Anaphylaxsi Unverified 01/18/19 15:45 s Sulfa (Sulfonamide AdvReac Nausea Unverified 01/18/19 15:45 Antibiotics) General Stated Complaint: Fever BENITA: 2 Review of Systems Review of Systems ROS Unobtainable: All systems reviewed & are unremarkable except as noted in HPI and below Constitutional Constitutional: Reports as per HPI, Reports chills and Reports fever(s) Eyes Eyes: Denies blurry vision ENT Ears, Nose, Mouth, and Throat: Denies dizziness, Reports sore throat and Denies throat swelling Cardiovascular Cardiovascular: Denies chest pain and Denies dyspnea Respiratory Respiratory: Reports cough and Denies dyspnea Gastrointestinal Gastrointestinal: Denies abdominal pain, Denies diarrhea and Denies vomiting Genitourinary Genitourinary: Denies hematuria and Denies dysuria Musculoskeletal Musculoskeletal: Denies back pain and Denies numbness Integumentary/Breasts Skin/Breast: Denies lesions and Denies rash Neurologic Neurologic: Denies dizziness, Denies focal weakness and Denies numbness Allergic/Immunologic Allergic/Immunologic: Denies throat swelling [facility] Medical History 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) serrated sessile adenoma Asthma (Chronic 01/26/14) Carpal tunnel syndrome (Chronic 01/26/14) Diverticulosis (Chronic 01/26/14) Erectile dysfunction (Chronic 01/26/14) Hearing loss 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 STATES IT WAS FOUND OUT DURING THE TURP PROCEDURE, AND IT'S UNDER ACTIVE SURVIELLENCE Rhinitis (Chronic 01/26/14) Tinnitus Tremor Vertigo (Acute) onset per pt New s 2018 Surgical History Colonoscopy - MAC (05/09/17) Hx of transurethral resection of prostate (Acute) S/P tonsillectomy (Acute) Status post appendectomy (Acute) Status post bilateral inguinal hernia repair (Acute) Reports bilateral inguinal hernia repair x2 Status post total left knee replacement (Chronic) Patient estimates surgery approximately 2005 Dr. Mcintyre Status post trigger finger release (Acute) Left hand Family History Mother Cholecystolithiasis Father , from either ID or PE Unsure of blood clot location Happened following prostate surgery No problems noted. Brother Heart disease S/P stents Stroke Sister , Had pacemaker No problems noted. Social History Smoking/Tobacco Use Status: Former Tobacco Use Alcohol Intake: current Alcohol Intake frequency: 0-2 drinks per day Drug use: Never Do you feel safe at home: Yes Do you feel safe in your relationship?: Yes Exam Const General: cooperative and healthy appearing Orientation: alert and awake HENMT Head: normal to inspection Ears: hearing grossly normal bilaterally, external ears normal and TM's normal bilaterally General nose exam: external nose normal Face and sinus: normal facial exam Mouth: oral mucosae normal Teeth and gingiva: dentition normal Throat: posterior oropharynx normal Eyes General: appearance normal, both eyes and all related structures Eyelids: eyelids normal Pupils: PERRL EOM: EOM intact bilaterally Neck Neck: normal visual inspection Lymphatic: no lymphadenopathy noted Chest Chest: normal inspection of the chest Resp Effort & Inspection: normal respiratory effort and able to speak in complete sentences Auscultation: diminished lung sounds bilaterally in the lower lung gonsalves Cardio Rate: regular rate Rhythm: regular rhythm GI Inspection: normal to inspection Palpation: soft, not firm, no guarding, no hepatosplenomegaly, no masses and nontender Auscultation: normal bowel sounds Back/Spine/Pelvis Back: no CVA tenderness Skin General skin exam: no rashes or lesions noted Neuro General: alert and awake Cognition: normal cognition Speech: speech normal Gait: normal gait Motor: muscle tone normal throughout Sensory Exam: no sensory deficits noted Extrem General: normal to inspection, full ROM and normal capillary refill Psych Appearance: grossly normal Mental Status: mental status grossly normal Speech and Movement: speech and movement normal Affect: normal affect Thought Process: normal Course Vital Signs Vital signs: Vital Signs Temperature 103.3 F H 01/23/19 16:28 Pulse 105 H 01/23/19 16:28 Respiratory Rate 18 01/23/19 16:28 Blood Pressure 156/117 H 01/23/19 16:28 Pulse Oximetry 97 01/23/19 16:28 Temperature 103.3 F H 01/23/19 16:28 Temperature Source Skin 01/23/19 16:28 Pulse 105 H 01/23/19 16:28 Respiratory Rate 18 01/23/19 16:28 Blood Pressure 156/117 H 01/23/19 16:28 Blood Pressure Position Supine 01/23/19 16:28 Pulse Oximetry 97 01/23/19 16:28 Oxygen Delivery Method Room Air 01/23/19 16:28 Oxygen Flow Rate 0 01/23/19 16:28 Pain Level 0 01/23/19 16:28 Lab/Test Results Lab/Test Results: 01/23/19 17:47 Nasopharynx Influenza Types A,B Antigen - Pending 01/23/19 17:25 Urine - Reflex from Ua Urine Culture - Pending 01/23/19 17:22 Blood Blood Culture - Pending 01/23/19 15:25 Blood Blood Culture - Pending Laboratory Tests Range/Units 01/23/19 01/23/19 01/23/19 15:25 15:25 15:25 WBC (4.4-10.8) k/cumm 13.33 H RBC (4.50-6.00) m/cumm 4.03 L Hgb (13.5-17.5) g/dL 12.4 L Hct (40.0-50.0) % 36.2 L MCV (80-95) fL 89.8 MCH (27.0-33.0) pg 30.8 MCHC (32.0-36.0) g/dL 34.3 RDW (11.8-14.1) % 13.8 Plt Count (130-400) x1000/uL 201 MPV (8.0-11.0) fL 8.8 Immature Gran % 0.2 Neutrophils % 88.5 Lymphocytes % 4.7 Monocytes % 6.4 Eosinophils % 0.1 Basophils % 0.1 Absolute Neutrophils (1.2-6.7) k/cumm 11.80 H Absolute Lymphocytes (1.2-3.4) k/cumm 0.63 L Absolute Monocytes (0.11-0.7) k/cumm 0.85 H Absolute Eosinophils (0.0-0.7) k/cumm 0.01 Absolute Basophils (0.0-0.2) k/cumm 0.01 Sodium (136-145) mmol/L 133 L Potassium (3.5-5.1) mmol/L 3.6 Chloride (98-107) mmol/L 99 Carbon Dioxide (21.0-32.0) mmol/L 25.6 Anion Gap (3-11) mmol/L 8.4 BUN (7-18) mg/dL 13 Creatinine (0.70-1.30) mg/dL 0.79 Estimated GFR/1.73 m2 (mL/min/1.73m2) >= 60.00 Glucose (70-100) mg/dL 107 H Lactate (0.6-1.4) mmol/L 1.4 Calcium (8.5-10.1) mg/dL 8.6 Magnesium (1.8-2.4) mg/dL 1.7 L Total Bilirubin (0.2-1.0) mg/dL 0.5 AST (15-37) U/L 18 ALT (16-63) U/L 22 Alkaline Phosphatase (46-116) U/L 68 Troponin I (0.00-0.06) ng/mL < 0.05 Total Protein (6.4-8.2) g/dL 6.6 Albumin (3.4-5.0) g/dL 3.6 Urine Color (Yellow) Urine Clarity (Clear) Urine pH (5-8) Ur Specific [place] (1.005-1.025) Urine Protein (Negative) mg/dL Urine Ketones (Negative) mg/dL Urine Blood (Negative) Urine Nitrite (Negative) Urine Bilirubin (Negative) Urine Urobilinogen (Up TO 0.2) EU/dL Ur Leukocyte Esterase (Negative) Urine RBC (0-2) Urine WBC (0-5) HPF Ur Epithelial Cells (Negative) HPF Urine Crystals (Negative) HPF Urine Bacteria (Negative) HPF Urine Casts (Negative) LPF Urine Mucus (Negative) Urine Other (Negative) Ur Culture Indicated? Urine Glucose (Negative) mg/dL Range/Units 01/23/19 17:25 WBC (4.4-10.8) k/cumm RBC (4.50-6.00) m/cumm Hgb (13.5-17.5) g/dL Hct (40.0-50.0) % MCV (80-95) fL MCH (27.0-33.0) pg MCHC (32.0-36.0) g/dL RDW (11.8-14.1) % Plt Count (130-400) x1000/uL MPV (8.0-11.0) fL Immature Gran % Neutrophils % Lymphocytes % Monocytes % Eosinophils % Basophils % Absolute Neutrophils (1.2-6.7) k/cumm Absolute Lymphocytes (1.2-3.4) k/cumm Absolute Monocytes (0.11-0.7) k/cumm Absolute Eosinophils (0.0-0.7) k/cumm Absolute Basophils (0.0-0.2) k/cumm Sodium (136-145) mmol/L Potassium (3.5-5.1) mmol/L Chloride (98-107) mmol/L Carbon Dioxide (21.0-32.0) mmol/L Anion Gap (3-11) mmol/L BUN (7-18) mg/dL Creatinine (0.70-1.30) mg/dL Estimated GFR/1.73 m2 (mL/min/1.73m2) Glucose (70-100) mg/dL Lactate (0.6-1.4) mmol/L Calcium (8.5-10.1) mg/dL Magnesium (1.8-2.4) mg/dL Total Bilirubin (0.2-1.0) mg/dL AST (15-37) U/L ALT (16-63) U/L Alkaline Phosphatase (46-116) U/L Troponin I (0.00-0.06) ng/mL Total Protein (6.4-8.2) g/dL Albumin (3.4-5.0) g/dL Urine Color (Yellow) Yellow Urine Clarity (Clear) Cloudy Urine pH (5-8) 5.5 Ur Specific [place] (1.005-1.025) 1.020 Urine Protein (Negative) mg/dL Negative Urine Ketones (Negative) mg/dL Negative Urine Blood (Negative) Small H Urine Nitrite (Negative) Positive H Urine Bilirubin (Negative) Negative Urine Urobilinogen (Up TO 0.2) EU/dL 0.2 Ur Leukocyte Esterase (Negative) Moderate H Urine RBC (0-2) Negative Urine WBC (0-5) HPF >50 Ur Epithelial Cells (Negative) HPF Negative Urine Crystals (Negative) HPF Negative Urine Bacteria (Negative) HPF Many Urine Casts (Negative) LPF Negative Urine Mucus (Negative) Negative Urine Other (Negative) Negative Ur Culture Indicated? Yes Urine Glucose (Negative) mg/dL Negative
[2019-01-23] MEDS: Normal Saline Flush 10 ML SYR IVP ×2 (18:17→22:07)
[2019-01-23] MEDS: Normal Saline 1,000 ML 1000 ML IV (18:20)
[2019-01-23] MEDS: Acetaminophen 500 MG TAB (18:20)
--- NOTE | 2019-01-23 18:27 | DI.VRAD_ITS ---
PROCEDURE INFORMATION: Exam: XR Chest, 2 Views Exam date and time: 01/23/2019 5:51 PM Clinical history: 74 years old, male; Other: Fever, weakness, R/O pneumonia TECHNIQUE: Imaging protocol: XR of the chest Views: 2 views. COMPARISON: CR XR CHEST 2V PA LATERAL 01/18/2019 4:23 PM FINDINGS: Lungs: Persistent, diffuse, minimal interstitial prominence. Left lower lobe retrocardiac density has increased. Pleural space: Unremarkable. No pleural effusion. No pneumothorax. Heart/Mediastinum: Unremarkable. No cardiomegaly. Bones/joints: Degenerative changes in the spine. IMPRESSION: 1. Persistent interstitial prominence which without multiple possible etiologies including scarring, interstitial inflammatory or infectious process or interstitial edema. 2. Atelectasis or evolving left lower lobe infiltrate. Dictated and Authenticated by: Raymond Bolton MD. Ordering:RASHIDA Leiva MD
[2019-01-23] MEDS: PIPERACILLIN/TAZO 3.375 GM in Normal Saline 50 ML IVPB (18:52)
--- NOTE | 2019-01-23 19:11 | NUR.NOTE ---
pt provided with meal tray while awaiting admission Nursing Note:
[2019-01-23] MEDS: VANCOMYCIN 1,500 MG in Normal Saline 250 ML 166.6666 MG IVPB (20:14)
--- NOTE | 2019-01-23 20:30 | HPE_ITS ---
Date of service: 01/23/19 Time of Service: 20:31 Assessment and Plan Assessment and plan (1) Fever and chills: Status: Acute Assessment and plan: Symptoms compatible with infectious etiology, possible bacteremia and based upon the absence of any definitive symptoms, reliance on laboratory, urinary source seems to be the most likely. It is also possible he has healthcare associated pneumonia although minimal if any symptoms and signs. I cannot conceive of a causal link between his current presentation and his presentation last week with neurologic symptoms without fever. That said, ultimately he has been managed from a neurologic standpoint as encephalitis, possibly infectious, although no pathogen identified. It does not strike me is likely that arboviral disease (West Nile, eastern equine encephalitis or other) would likely cause pyuria and I am not pursuing these diagnostic possibilities. He has no exposure history to point towards hanta viral infection. Urine and blood cultures have been obtained. He has been started on broad-spectrum antibiotics for healthcare associated pneumonia coverage which should be more than adequate for covering uropathogens as well. Hopefully we will get culture results promptly to tailor antibiotics. IV fluids overnight. Check procalcitonin in the morning. (2) Bacteriuria with pyuria: Status: Acute Assessment and plan: Chronic urinary urgency with no recent major changes. Abnormal urinalysis. I suspect he may have urinary retention, with subsequent urinary tract infection and possible bacteremia. Check bladder scans pre-and post void and renal ultrasound tomorrow to rule out upper tract obstruction. If evidence of obstruction, obtain urology consultation. (3) Healthcare associated bacterial pneumonia: Status: Acute Assessment and plan: Subtle findings on chest x-ray, subtle findings on lung exam which may be chronic? Minimal cough. Not producing any sputum. I am not pursuing any additional culture beyond blood culture. Follow clinical exam. Monitor respiratory status and oxygenation. Broad-spectrum antibiotics for health care associated pathogens. As noted above, by history no likely exposures to atypical pathogens other than being in the healthcare setting. (4) Hypertension: Status: Chronic Assessment and plan: Continue outpatient dose of lisinopril and monitor blood pressure response. (5) Prostate cancer: Status: Chronic Assessment and plan: Found on TUR specimen and monitored regularly by Dr. Viramontes. Not known to have any metastatic disease. (6) Overactive bladder: Status: None Assessment and plan: Long-standing problem. Oxybutynin has helped with symptoms but I am holding it until we get a better sense of adequacy of voiding and emptying his bladder. (7) Asthma: Status: Chronic Assessment and plan: May have had some occupational exposures aggravating his lung disease but he has long since retired. Seems to be stable on current Flovent inhaler which I am continuing, as well as as needed albuterol. (8) Encephalitis: Status: Acute Assessment and plan: Still having some latency in responses, word finding difficulties and missed statements. Receptive language skills seems to be intact at least in casual conversation. Continue Keppra as initiated during [facility] hospitalization. Probably we can stop the acyclovir given negative CSF studies for HSV and varicella virus. I defer this decision to the day team after consulting with ID. History of Present Illness History of Present Illness Chief Complaint: Chills and fever, generalized wea kness Narrative: 74-year-old man brought to the emergency room by family members because of onset midday today of chills and fever, initially measured midday at 101, going as high as 103, with associated general shaking/Reiger's and generalized weakness. He had returned from [facility] yesterday, hospitalized there from January 18 until the because of global a aphasia. He was treated as acute CVA or TIA initially, including receiving thrombolytics here in our emergency room before transfer to [facility]. However, multiple imaging modalities did not reveal an acute ischemic or hemorrhagic stroke, no significant extracranial or intracranial vascular disease on imaging. EEG showed left temporal slowing and consideration was given that he had an infectious or inflammatory encephalitis causing his symptoms. He was subsequently started on acyclovir after LP was performed and placed on prophylactic Keppra. His CSF studies have subsequently returned negative for bacterial pathogens, negative for HSV 1 and 2, negative for varicella zoster, negative for oligoclonal banding, normal IgG CSF index. His neurologic deficits, never motor, all language-based, pretty much resolved by the time of his hospital discharge although his and son state that he still has a little bit longer time to respond and still has occasional difficulties finding words. He has chronic urinary urgency and slow flow. I do not find any recent imaging studies to indicate whether or not he has significant urinary retention. He did have problems with BPH and retention about 5 years ago resulting in TUR with prostate cancer noted on the pathologic specimen. He has been followed regularly by Dr. Viramontes for monitoring of any evidence of extension of prostate cancer with no clinical signs or symptoms suggesting this to date. He had a low PSA in [address] [facility]. He denies any significant change in his voiding pattern since he returned home from the hospital. Notations from [facility] during hospitalization last week do not suggest any significant problems with urination. I could not find any results regarding bladder scanning, or pre-or post void bladder volume checks. He reports today developing a mild sore throat, a little bit of clear rhinorrhea but denies shortness of breath, pleuritic chest pain, productive cough. He has a label of asthma for which he is on Flovent chronically and occasional as needed albuterol. He has work exposure to various fumes but no known chronic interstitial lung disease. His chest x-ray today was compared to the x-ray from the and there may be slight increase in interstitial markings and perhaps early development of a left retrocardiac infiltrate. Blood and urine cultures were obtained in the emergency room. He was subsequently given loading doses of vancomycin and Pipracil and tazobactam for possible healthcare associated pneumonia and urinary tract infection. He is being admitted now for further evaluation and treatment. Review of Systems Review of Systems Narrative: Mild headache this evening which went away after he had something to eat. Denies any vision changes or double vision. No trouble swallowing. No facial numbness or numbness of his tongue. Minimal cough. A little bit of rhinorrhea. Slight sore throat. No chest pain anginal or pleuritic. No abdominal pain nausea or vomiting. No diarrhea. He still has urinary urgency but denies dysuria. No hematuria. He has not been incontinent. Yesterday and today volume avoiding may be a little bit smaller than typical. No constipation. He has chronic lower extremity swelling since his knee replacement surgeries. No calf tenderness or pain. No unusual swelling redness or pain around his prosthetic joints. No paresthesias. Generalized but not focal weakness today. No large bruises, no external bleeding. 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 STATES IT WAS FOUND OUT DURING THE TURP PROCEDURE, AND IT'S UNDER ACTIVE SURVIELLENCE Rhinitis (Chronic 01/26/14) Tinnitus Tremor Vertigo (Acute) onset per pt New Year's day 2018 Surgical History Colonoscopy - MAC (05/09/17) Hx of transurethral resection of prostate (Acute) S/P tonsillectomy (Acute) Status post appendectomy (Acute) Status post bilateral inguinal hernia repair (Acute) Reports bilateral inguinal hernia repair x2 Status post total left knee replacement (Chronic) Patient estimates surgery approximately 2005 Dr. Mcintyre Status post trigger finger release (Acute) Left hand Family History Mother Cholecystolithiasis Father , from either OR or PE Unsure of blood clot location Happened following prostate surgery No problems noted. Brother Heart disease S/P stents Stroke Sister , Had pacemaker No problems noted. Social History Smoking/Tobacco Use Status: Former Tobacco Use Alcohol Intake: current Alcohol Intake frequency: 0-2 drinks per day Drug use: Never Do you feel safe at home: Yes Do you feel safe in your relationship?: Yes Meds Home Medications and Allergies Home Medications Medication Instructions Recorded Confirmed Type ascorbic acid (vitamin C) [Vitamin 1,500 mg PO DAILY tab.chew NS 07/09/12 01/23/19 History C] lisinopril 20 mg PO DAILY tab-cap NS 07/09/12 01/23/19 History magnesium 500 mg PO DAILY NS 07/09/12 01/23/19 History albuterol sulfate 2 puff INHALATION QID PRN 01/09/14 01/23/19 History cetirizine [Zyrtec] 10 mg PO DAILY tab-cap 10/05/15 01/23/19 History montelukast [Singulair] 10 mg PO DAILY tab-cap 10/05/15 01/23/19 History atorvastatin 20 mg tablet 20 mg PO DAILY 09/19/18 01/23/19 History calcium carbonate 600 mg (1,500 1 tab PO DAILY 09/19/18 01/23/19 History mg)-vitamin D3 400 unit tablet fluticasone propionate 2 spray INTRANASAL DAILY 09/19/18 01/23/19 History fluticasone propionate 110 1 puff IH BID 09/19/18 01/23/19 History mcg/actuation HFA aerosol inhaler omeprazole 20 mg capsule,delayed 20 mg PO DAILY 09/19/18 01/23/19 History release acetaminophen 1,000 mg PO Q8H PRN #90 tab 09/26/18 01/23/19 Rx ibuprofen 600 mg PO TID PRN #90 tab 09/26/18 01/23/19 Rx oxybutynin chloride 5 mg tablet 5 mg PO BID PRN #180 tab 11/22/18 01/23/19 Rx ibuprofen 200 mg capsule 600 mg PO BID PRN cap 12/18/18 01/23/19 History aspirin 81 mg PO DAILY 01/23/19 01/23/19 History levetiracetam 500 mg PO BID 01/23/19 01/23/19 History valacyclovir 1,000 mg PO TID 01/23/19 01/23/19 History Allergies Allergy/AdvReac Type Severity Reaction Status Date / Time shellfish derived Allergy Severe Anaphylaxsi Unverified 01/18/19 15:45 s Sulfa (Sulfonamide AdvReac Nausea Unverified 01/18/19 15:45 Antibiotics) Exam Narrative Exam Narrative: Man appearing his stated age, slightly slow to respond to questions, sometimes making statements that he self corrects when he realizes they are either out of context, not pertaining to the question or simply wrong. Initial temperature 39 6, initial blood pressure 147/79 pulse 110 SaO2 94% on room air. Skin warm, no rash or obvious cellulitic lesion. Sclera clear. Pharynx without oral lesions visible. No cervical or supraclavicular adenopathy. No carotid bruits heard. Lungs have bilateral dry crackles in the lower lung gonsalves, faint, clear in the upper lung gonsalves no wheezing no rub. Regular heart rhythm without murmur S3 or S4. Normal bowel sounds with no abdominal tenderness. I could not appreciate whether or not bladder was distended by palpation. Rectal exam was not performed. Extremities warm with normal distal pulses. He has 2+ edema in the right leg 1+ left leg despite wearing compression stockings. There is no calf tenderness. There may be some very mild effusion of the right knee versus chronic increased tissue. No pain with active range of motion or palpation of either knee joints. Non-irritable hips to passive range of motion. He has spontaneous symmetric movement of the upper extremities. He is able to feed himself without problems. 1+ DTRs at the elbows. I do not elicit any at the knees or ankles. He sits up unassisted. I did not observe him walk. He knows he is in the hospital and why. Results Chest x-ray subtle increase in interstitial markings and possible early left retrocardiac infiltrate on portable AP view. EKG sinus rhythm, slightly low precordial voltage, no appreciable change compared to ECG from January 18, 2019. Labs Result diagrams: 01/23/19 15:25 01/23/19 15:25 Labs: Laboratory Results - last 24 hr 01/23/19 01/23/19 01/23/19 15:25 15:25 15:25 WBC 13.33 H RBC 4.03 L Hgb 12.4 L Hct 36.2 L MCV 89.8 MCH 30.8 MCHC 34.3 RDW 13.8 Plt Count 201 MPV 8.8 Immature Gran % 0.2 Neutrophils % 88.5 Lymphocytes % 4.7 Monocytes % 6.4 Eosinophils % 0.1 Basophils % 0.1 Absolute Neutrophils 11.80 H Absolute Lymphocytes 0.63 L Absolute Monocytes 0.85 H Absolute Eosinophils 0.01 Absolute Basophils 0.01 Sodium 133 L Potassium 3.6 Chloride 99 Carbon Dioxide 25.6 Anion Gap 8.4 BUN 13 Creatinine 0.79 Estimated GFR/1.73 m2 >= 60.00 Glucose 107 H Lactate 1.4 Calcium 8.6 Magnesium 1.7 L Total Bilirubin 0.5 AST 18 ALT 22 Alkaline Phosphatase 68 Troponin I < 0.05 Total Protein 6.6 Albumin 3.6 Urine Color Urine Clarity Urine pH Ur Specific [place] Urine Protein Urine Ketones Urine Blood Urine Nitrite Urine Bilirubin Urine Urobilinogen Ur Leukocyte Esterase Urine RBC Urine WBC Ur Epithelial Cells Urine Crystals Urine Bacteria Urine Casts Urine Mucus Urine Other Ur Culture Indicated? Urine Glucose 01/23/19 17:25 WBC RBC Hgb Hct MCV MCH MCHC RDW Plt Count MPV Immature Gran % Neutrophils % Lymphocytes % Monocytes % Eosinophils % Basophils % Absolute Neutrophils Absolute Lymphocytes Absolute Monocytes Absolute Eosinophils Absolute Basophils Sodium Potassium Chloride Carbon Dioxide Anion Gap BUN Creatinine Estimated GFR/1.73 m2 Glucose Lactate Calcium Magnesium Total Bilirubin AST ALT Alkaline Phosphatase Troponin I Total Protein Albumin Urine Color Yellow Urine Clarity Cloudy Urine pH 5.5 Ur Specific [place] 1.020 Urine Protein Negative Urine Ketones Negative Urine Blood Small H Urine Nitrite Positive H Urine Bilirubin Negative Urine Urobilinogen 0.2 Ur Leukocyte Esterase Moderate H Urine RBC Negative Urine WBC >50 Ur Epithelial Cells Negative Urine Crystals Negative Urine Bacteria Many Urine Casts Negative Urine Mucus Negative Urine Other Negative Ur Culture Indicated? Yes Urine Glucose Negative Last Vital Signs Temp 38.6 C H 01/23/19 19:02 Pulse 108 H 01/23/19 19:30 Resp 22 01/23/19 19:30 BP 119/47 L 01/23/19 19:30 Pulse Ox 94 L 01/23/19 19:30
[2019-01-23 20:38] LABS: Troponin I < 0.05 ng/mL (0.00-0.06)
[2019-01-23] MEDS: DEXTROSE 5%-0.45% SALINE 1,000 ML 100 ML IV (22:08)
[2019-01-23] MEDS: Enoxaparin 40 MG/0.4 ML SYR SC (22:19)
--- NOTE | 2019-01-23 23:52 | NUR.NOTE ---
Nursing Note: 01/23 2103: pt arrived to med surg floor from emergency department via wheelchair. pt has belongings in room and accompanied by . Latoya carrillo.
[2019-01-24] VITALS (7 sets, daily range): BP systolic 113–145; BP diastolic 62–76; PULSE 71–107; RESP 16–20; TEMP 37.8–38.9; O2SAT 95–99
[2019-01-24] MEDS: PIPERACILLIN/TAZO 3.375 GM in Normal Saline 50 ML IVPB ×3 (02:15→17:01)
[2019-01-24] MEDS: Acetaminophen 325 MG TAB 650 MG PO ×2 (03:53→20:34)
[2019-01-24 06:44] LABS: HCT 31.5 % (40.0-50.0); HGB 10.6 g/dL (13.5-17.5); Mean Corp. HGB Concentration 33.7 g/dL (32.0-36.0); Mean Corpuscular Hemoglobin 30.5 pg (27.0-33.0); Mean Corpuscular Volume 90.5 fL (80-95); Mean Platelet Volume 9.1 fL (8.0-11.0); Platelet Count 164 x1000/uL (130-400); RBC 3.48 m/cumm (4.50-6.00); RBC Distribution Width 14.2 % (11.8-14.1); White Blood Cell Count 13.42 k/cumm (4.4-10.8)
[2019-01-24 06:49] LABS: Anion Gap 8.3 mmol/L (3-11); BUN 13 mg/dL (7-18); CO2 23.7 mmol/L (21.0-32.0); Calcium 7.6 mg/dL (8.5-10.1); Chloride 102 mmol/L (98-107); Glucose 116 mg/dL (70-100); Potassium 3.3 mmol/L (3.5-5.1); Sodium 134 mmol/L (136-145)
[2019-01-24 07:28] LABS: Procalcitonin < 0.1 ng/mL
[2019-01-24] MEDS: DEXTROSE 5%-0.45% SALINE 1,000 ML 100 ML IV (07:33)
--- NOTE | 2019-01-24 08:00 | DI.US_ITS ---
EXAM: US RENAL CLINICAL HISTORY: UTI, history of Prostate cancer, rule out obstruct. TECHNIQUE: Ultrasound performed using standard protocol. COMPARISON: US OR ANESTHESIA from 09/24/2018 FINDINGS: The examination is somewhat technically limited regarding visualization of the kidneys. No gross hyd ronephrosis. No gross nephrolithiasis. Urinary bladder contains 42 cc of urine and the patient was unable to void. Ureteral jets not visualized. IMPRESSION: No evidence of urinary tract obstruction.
[2019-01-24] MEDS: Atorvastatin 20 MG TAB PO (08:28)
[2019-01-24] MEDS: levETIRAcetam 500 MG TAB PO ×2 (08:28→20:34)
[2019-01-24] MEDS: Aspirin E.C. 81 MG TABEC PO (08:28)
[2019-01-24] MEDS: Lisinopril 20 MG TAB PO (08:28)
[2019-01-24] MEDS: Cetirizine 10 MG TAB PO (08:28)
[2019-01-24] MEDS: Ascorbic Acid 500 MG TAB 1500 MG PO (08:28)
[2019-01-24] MEDS: Magnesium Gluconate 500 MG TAB PO (08:28)
[2019-01-24] MEDS: Omeprazole 20 MG CAPCR PO (08:28)
[2019-01-24] MEDS: valACYclovir 1,000 MG TAB 1000 MG PO ×3 (08:28→20:34)
[2019-01-24 08:34] LABS: C-Reactive Protein 9.91 mg/dL (0.0-0.3)
--- NOTE | 2019-01-24 09:38 | INITIAL_ITS ---
Care Management Initial Assess REASON FOR HOSPITALIZATION:: Fever, UTI, possible healthcare associated pneumonia PAST MEDICAL HISTORY/PAST SURGICAL HISTORY:: Adenomatous polyp of transverse colon, serrated sessile adenoma, Asthma, Carpal tunnel syndrome, Hx of transurethral resection of prostate, tonsillectomy, appendectomy, bilateral inguinal hernia repair x2, total left knee replacement, trigger finger release- Left hand, Diverticulosis, Encephalitis, Erectile dysfunction, Hearing loss, Hyperplasia of prostate with urinary obstruction, Hypertension, Increased frequency of urination, Obstructive and reflux uropathy, Osteoarthritis of knee, Overactive bladder, Primary osteoarthritis of right knee, Prostate cancer, Rhinitis, Tinnitus, Tremor, Vertigo PREVIOUS FUNCTIONAL STATUS/SOCIAL/FAMILY SUPPORTS:: Andrey resides with his in a ranch style home with 3 entrance steps. The couple has two adult male children and no grandchildren. One son resides in [place] and one in [place]. 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 Andrey is independent with all ADLs in the community and transports himself. CURRENT FUNCTIONAL STATUS:: Andrey was lying in bed when CM met with him. He used good humor, was pleasant in interaction and forthcoming with information. He reviewed the events leading up to his hospitalization and his feelings around not knowing what caused his symptoms resulting in urgent DART helicopter trip to [facility]. Andrey reports his lips would not form the words he thought he was speaking. He reported after a few days this resolved and [facility] discharged him home without his understanding of what caused this to happen. He reported becoming feverish and returning to the ER due to illness. ADVANCE DIRECTIVES:: On file at [facility], Lauren as Agent, sons as co-alternates. Has patient been provided with information about the portal?: Yes Did the patient sign up for the portal?: No CODE STATUS:: Full Code INSURANCE COVERAGE / FINANCIAL ISSUES:: Medicare. [employer] CURRENT HOME/COMMUNITY SERVICES/EQUIPMENT:: FWW from previous surgery; not currently using. PRIMARY CARE PHYSICIAN:: Catia Means POTENTIAL DISCHARGE NEEDS:: Resumption of outpatient PT, follow up appointments with PCP. PATIENT/FAMILY EDUCATION NEEDS:: Discharge plan, limitations, follow up plan of care, Ask Me Three. ANTICIPATED BARRIERS TO DISCHARGE:: None identified at this time. TRANSPORTATION:: Via private vehicle with his . PLAN:: Andrey continues to be closely monitored and treated for pneumonia. A nticipate he will be discharged home with when ready per MD and follow up with his PCP. CM will continue to provide support to patient, family and discharge plan of care.
[2019-01-24] MEDS: Mometasone 220 MCG 14 DOSE INHALER 1 PUFF IH (10:24)
[2019-01-24] MEDS: Potassium Chloride 20 MEQ TABCR 40 MEQ PO (10:30)
[2019-01-24] MEDS: MAGNESIUM SULFATE 2 GM/50 ML BAG IVPB (10:30)
--- NOTE | 2019-01-24 10:41 | PHARADMIT ---
Addendum entered by Erik Jessica Pickard [facility] 01/27/19 12:27: Pharmacy Note Subjective MD believes bacteremia stemmed from UTI. Patient has improved. Switching IV ABX to Cipro IV Objective BP-173/99 Na-134, H&H,Plts-up WBC-5.52 Assessment Meropenem dc'd Plan Plan is to discharge home tomorrow on PO ABX Addendum entered by [facility] Pickard [facility] 01/26/19 14:17: Pharmacy Note Subjective Remains afebrile, doing better, MD stumped ass to cause of iniatal symptoms Objective VS-OK BP-165/91 Na-136 K+3.9 H&H-10.9/33.0 Assessment Meropenem to continue Plan Urine shows pansensitive e.coli Blod no growth, cntinue curent treatmment Addendum entered by Erik Jessica Pickard [facility] 01/25/19 14:12: Pharmacy Note Subjective Patient continues to spike fevers (39.6C), MD has changed IV ABX to Merepenum 2gm IV q8hrs Objective VS-OK, Temp-38.6C, Na-132 K+3.3, WBC-8.78 H&H,Plts,SCr-OK, BM today Assessment Zosyn dc'd, now on Meropenem. Vaancomycin dc'd yesterday. Urine culture (e.coli) pansensitive. Blood-no growth/24hrs Continues Valtrex & Keppra from [facility] discharge for non-CVA findings ? Plan Has Prostate cancer, to follow up with Original Note: Admission Pharmacy Clinical Review FEVER, UTI, POSSIBLE HEALTHCARE ASSOCIATED PNEUMONIA Code Status Full Code Current Weight Wgt-84.3 kg Renally Cleared and Narrow Therapeutic Index Meds CrCl~ 70mL/min Tmax- QTc Value / Action Taken none current BP Control, Fever BP-116/67 Tmax-37.8C Electrolytes reviewed Na- 134 K+3.3 Mag-1.7 DVT Prophylaxis Lovenox, Opiate Usage / Scheduled Bowel Regimen Ordered No Yes Plt/SCr for Heparin / Enoxaparin Plts-164 SCr-0.8 INR for Warfarin na H/H stable, WBC/Bands H&H- 10.6/31.5 WBC-13.42 Antibiotic appropriateness Vancomycin, Zosyn, Valtrex Cultures and Sensitivities Blood, Urine,Tonsil-PENDING, Flu-neg Surgical ABX d/c within 24 hr NA DM control / Insulin Dosing BG-116 Heart Failure (Check EF%) (ALEJANDRO's, B-Block, Diuretics) Lisinopril, IV to PO Switch No Home Meds Reviewed Yes Home Meds Not Ordered Calcium/D, Mirabegron, Ibuprofen, Oxybutinin, Flonase Comments 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
--- NOTE | 2019-01-24 14:43 | CHAPLAIN ---
Andrey was sitting up in a chair when I visited. He was pleasant and talked about what brought him he. He was just recently discharged from [facility] and talked about how much busier and noisier that hospital is compared to [facility]. He expects to have family in to visit later.
--- NOTE | 2019-01-24 18:16 | PGE_ITS ---
Date of Service Date of service: 01/24/19 Time of Service: 18:16 Assessment and Plan Assessment and plan (1) E. coli UTI: Status: Acute Assessment and plan: Present on admission. No evidence of urinary retention by bladder scans. No evidence of kidney stones or hydronephrosis on ultrasound. Continue zosyn. D/c vancomycin. Remains febrile. Blood cultures pending. (2) Healthcare associated bacterial pneumonia: Status: Ruled-out Assessment and plan: Present on admission. Breath sounds are coarse at bases, but the patient does not seem to have any symptoms of pneumonia. No further workup. (3) Encephalitis: Status: Chronic Assessment and plan: Patient is on valcyclovir and keppra post his [place] [facility] [place] 01/22/[place] for CVA-like presentation but no findings of CVA on imaging (EEG with left temporal lobe activity). (4) Hypertension: Status: Chronic Assessment and plan: No change in therapy (5) Prostate cancer: Status: Chronic Assessment and plan: Follow up with Dr Viramontes. (6) DVT prophylaxis: Status: Acute Assessment and plan: Lovenox (7) Discharge planning issues: Status: Acute Assessment and plan: Full code Subjective Subjective Interval history since last seen: Complains of occasional headache, though none right now, as well as urinary frequency. Denies dysuria, dizziness, chest pain, shortness of breath, nausea, vomiting. Exam Narrative Exam Narrative: General: Elderly male, A&Ox3, NAD HEENT: EOMI, MMM Heart: RRR, no m/r/g Lungs: coarse breath sounds at B bases GI: abdomen is soft, nontender, nondistended Extremities: +1 edema at B ankles and 1/[address] BLE's Objective Objective Clinical Data: Abnormal lab results 01/24/19 01/24/19 01/24/19 Range/Units 06:05 06:05 08:10 WBC 13.42 H (4.4-10.8) k/cumm RBC 3.48 L (4.50-6.00) m/cumm Hgb 10.6 L (13.5-17.5) g/dL Hct 31.5 L (40.0-50.0) % RDW 14.2 H (11.8-14.1) % Sodium 134 L (136-145) mmol/L Potassium 3.3 L (3.5-5.1) mmol/L Glucose 116 H (70-100) mg/dL Calcium 7.6 L (8.5-10.1) mg/dL C-Reactive Protein 9.91 H (0.0-0.3) mg/dL Vital Signs Temperature 37.9 C H 01/24/19 16:05 Temperature Source Tympanic 01/24/19 16:05 Pulse 107 H 01/24/19 16:05 Pulse Rhythm Regular 01/24/19 15:00 Respiratory Rate 20 01/24/19 16:05 Respiratory Effort 01/24/19 15:00 Respiratory Depth Normal 01/24/19 15:00 Respiratory Pattern Normal 01/24/19 15:00 Blood Pressure 126/70 01/24/19 16:05 Blood Pressure Position Supine 01/23/19 16:28 Pulse Oximetry 98 01/24/19 16:05 Oxygen Delivery Method Room Air 01/24/19 16:05 Oxygen Flow Rate 0 01/24/19 16:05 Pain Level 0 01/24/19 16:05 Comment 01/24/19 07:40 Intake & Output 01/23/19 01/24/19 01/24/19 23:59 11:59 23:59 Intake Total 1283.333 / 2789.824 6104.334 / 3333.334 540 / 3333.334 Output Total 325 / 550 1475 / 1625 150 / 1625 Balance 958.333 / 887.190 3686.334 / 1708.334 390 / 1708.334 Weight 84.368 kg Intake: IV 1283.333 / 9497.696 0846.334 / 2233.334 300 / 2233.334 Oral 860 / 1100 240 / 1100 Output: Urine 325 / 550 1475 / 1625 150 / 1625 Other: Urine Color Yellow Yellow Yellow Straw Straw Urine Appearance Clear Clear Clear Urine Odor None Strong Strong Comment hat not in toilet at this time to measure urine. BLADDER SCANNED X 3 FOR 212, 145, 75 AFTER PT VOIDED 175CC CLEAR YELLOW URINE. 15MINS LATER PT VOIDED AGAIN 125CC URINE voided x2 within an hour for 250 Voiding Methods Toilet Urinal Incontinent Laboratory Results WBC 13.42 k/cumm (4.4-10.8) H 01/24/19 06:05 RBC 3.48 m/cumm (4.50-6.00) L 01/24/19 06:05 Hgb 10.6 g/dL (13.5-17.5) L 01/24/19 06:05 Hct 31.5 % (40.0-50.0) L 01/24/19 06:05 MCV 90.5 fL (80-95) 01/24/19 06:05 MCH 30.5 pg (27.0-33.0) 01/24/19 06:05 MCHC 33.7 g/dL (32.0-36.0) 01/24/19 06:05 RDW 14.2 % (11.8-14.1) H 01/24/19 06:05 Plt Count 164 x1000/uL (130-400) 01/24/19 06:05 MPV 9.1 fL (8.0-11.0) 01/24/19 06:05 Immature Gran % 0.2 01/23/19 15:25 Neutrophils % 88.5 01/23/19 15:25 Lymphocytes % 4.7 01/23/19 15:25 Monocytes % 6.4 01/23/19 15:25 Eosinophils % 0.1 01/23/19 15:25 Basophils % 0.1 01/23/19 15:25 Absolute Neutrophils 11.80 k/cumm (1.2-6.7) H 01/23/19 15:25 Absolute Lymphocytes 0.63 k/cumm (1.2-3.4) L 01/23/19 15:25 Absolute Monocytes 0.85 k/cumm (0.11-0.7) H 01/23/19 15:25 Absolute Eosinophils 0.01 k/cumm (0.0-0.7) 01/23/19 15:25 Absolute Basophils 0.01 k/cumm (0.0-0.2) 01/23/19 15:25 Sodium 134 mmol/L (136-145) L 01/24/19 06:05 Potassium 3.3 mmol/L (3.5-5.1) L 01/24/19 06:05 Chloride 102 mmol/L (98-107) 01/24/19 06:05 Carbon Dioxide 23.7 mmol/L (21.0-32.0) 01/24/19 06:05 Anion Gap 8.3 mmol/L (3-11) 01/24/19 06:05 BUN 13 mg/dL (7-18) 01/24/19 06:05 Creatinine 0.80 mg/dL (0.70-1.30) 01/24/19 06:05 Estimated GFR/1.73 m2 >= 60.00 (mL/min/1.73m2) 01/24/19 06:05 Glucose 116 mg/dL (70-100) H 01/24/19 06:05 Lactate 1.4 mmol/L (0.6-1.4) 01/23/19 15:25 Calcium 7.6 mg/dL (8.5-10.1) L 01/24/19 06:05 Magnesium 1.7 mg/dL (1.8-2.4) L 01/23/19 15:25 Total Bilirubin 0.5 mg/dL (0.2-1.0) 01/23/19 15:25 AST 18 U/L (15-37) 01/23/19 15:25 ALT 22 U/L (16-63) 01/23/19 15:25 Alkaline Phosphatase 68 U/L (46-116) 01/23/19 15:25 Troponin I < 0.05 ng/mL (0.00-0.06) 01/23/19 20:08 C-Reactive Protein 9.91 mg/dL (0.0-0.3) H 01/24/19 08:10 Total Protein 6.6 g/dL (6.4-8.2) 01/23/19 15:25 Albumin 3.6 g/dL (3.4-5.0) 01/23/19 15:25 Procalcitonin < 0.1 ng/mL 01/24/19 06:05 Urine Color Yellow (Yellow) 01/23/19 17:25 Urine Clarity Cloudy (Clear) 01/23/19 17:25 Urine pH 5.5 (5-8) 01/23/19 17:25 Ur Specific [place] 1.020 (1.005-1.025) 01/23/19 17:25 Urine Protein Negative mg/dL (Negative) 01/23/19 17:25 Urine Ketones Negative mg/dL (Negative) 01/23/19 17:25 Urine Blood Small (Negative) H 01/23/19 17:25 Urine Nitrite Positive (Negative) H 01/23/19 17:25 Urine Bilirubin Negative (Negative) 01/23/19 17:25 Urine Urobilinogen 0.2 EU/dL (Up TO 0.2) 01/23/19 17:25 Ur Leukocyte Esterase Moderate (Negative) H 01/23/19 17:25 Urine RBC Negative (0-2) 01/23/19 17:25 Urine WBC >50 HPF (0-5) 01/23/19 17:25 Ur Epithelial Cells Negative HPF (Negative) 01/23/19 17:25 Urine Crystals Negative HPF (Negative) 01/23/19 17:25 Urine Bacteria Many HPF (Negative) 01/23/19 17:25 Urine Casts Negative LPF (Negative) 01/23/19 17:25 Urine Mucus Negative (Negative) 01/23/19 17:25 Urine Other Negative (Negative) 01/23/19 17:25 Ur Culture Indicated? Yes 01/23/19 17:25 Urine Glucose Negative mg/dL (Negative) 01/23/19 17:25 US renal: No evidence of urinary tract obstruction.
[2019-01-24] MEDS: Enoxaparin 40 MG/0.4 ML SYR SC (21:48)
[2019-01-25] VITALS (11 sets, daily range): BP systolic 122–168; BP diastolic 69–86; PULSE 66–101; RESP 18–21; TEMP 36.7–39.8; O2SAT 94–98
[2019-01-25] MEDS: Acetaminophen 325 MG TAB 650 MG PO ×2 (00:05→11:18)
[2019-01-25] MEDS: PIPERACILLIN/TAZO 3.375 GM in Normal Saline 50 ML IVPB (02:02)
[2019-01-25] MEDS: DEXTROSE 5%-0.45% SALINE 1,000 ML 100 ML IV ×3 (02:02→22:49)
[2019-01-25] MEDS: Normal Saline Flush 10 ML SYR IVP (02:02)
[2019-01-25 07:40] LABS: Abs Immature Grans 0.02 k/cumm (0.0-0.09); Absolute Basophil Count 0.01 k/cumm (0.0-0.2); Absolute Eosinophil Count 0.03 k/cumm (0.0-0.7); Absolute Lymphocyte Count 0.68 k/cumm (1.2-3.4); Absolute Monocyte Count 0.57 k/cumm (0.11-0.7); Basophils % 0.1; Eosinophils % 0.3; HCT 33.5 % (40.0-50.0); HGB 11.4 g/dL (13.5-17.5); Immature Grans % 0.2; Lymphocytes % 7.7; Mean Corpuscular Hemoglobin 30.5 pg (27.0-33.0); Mean Corpuscular Volume 89.6 fL (80-95); Mean Platelet Volume 9.5 fL (8.0-11.0); Monocytes % 6.5; Neutrophils % 85.2; Platelet Count 165 x1000/uL (130-400); RBC 3.74 m/cumm (4.50-6.00); RBC Distribution Width 14.3 % (11.8-14.1); White Blood Cell Count 8.78 k/cumm (4.4-10.8)
[2019-01-25 07:49] LABS: Anion Gap 11.5 mmol/L (3-11); BUN 8 mg/dL (7-18); C-Reactive Protein 14.27 mg/dL (0.0-0.3); CO2 21.5 mmol/L (21.0-32.0); CREATININE 0.67 mg/dL (0.70-1.30); Calcium 7.6 mg/dL (8.5-10.1); Chloride 99 mmol/L (98-107); Glucose 128 mg/dL (70-100); Magnesium 1.8 mg/dL (1.8-2.4); Potassium 3.3 mmol/L (3.5-5.1); Sodium 132 mmol/L (136-145)
[2019-01-25 07:54] LABS: Absolute Neutrophil Count 7.48 k/cumm (1.2-6.7)
[2019-01-25] MEDS: Mometasone 220 MCG 14 DOSE INHALER 1 PUFF IH (08:05)
[2019-01-25] MEDS: Aspirin E.C. 81 MG TABEC PO (08:10)
[2019-01-25] MEDS: valACYclovir 1,000 MG TAB 1000 MG PO ×3 (08:10→19:42)
[2019-01-25] MEDS: Atorvastatin 20 MG TAB PO (08:11)
[2019-01-25] MEDS: Lisinopril 20 MG TAB PO (08:11)
[2019-01-25] MEDS: levETIRAcetam 500 MG TAB PO ×2 (08:11→19:42)
[2019-01-25] MEDS: Cetirizine 10 MG TAB PO (08:11)
[2019-01-25] MEDS: Ascorbic Acid 500 MG TAB 1500 MG PO (08:11)
[2019-01-25] MEDS: Magnesium Gluconate 500 MG TAB PO (08:11)
[2019-01-25] MEDS: Omeprazole 20 MG CAPCR PO (08:11)
[2019-01-25] MEDS: Magnesium Oxide 400 MG TAB PO (10:17)
[2019-01-25] MEDS: Potassium Chloride 20 MEQ TABCR 40 MEQ PO (10:20)
[2019-01-25] MEDS: POTASSIUM CHLORIDE 20 MEQ, POTASSIUM CHLORIDE 10 MEQ 30 MEQ PO (16:09)
--- NOTE | 2019-01-25 17:02 | PDOC.CMPRO ---
- If Service Date Differs Date of service: 01/25/19 Time of Service: 17:02 Care Management Progress Note S/O: Andrey remains inpatient at this time no change in status today. He is ambulating in the parks with his spouse he remains on IV antibiotics. A: Andrey is a 74 year old male that was admitted with fever, UTI cultures pending, and possible HCAP recent admission to [facility] [place] P:Andrey continues to be closely monitored and treated for pneumonia. Anticipate he will be discharged home with when ready per MD and follow up with his PCP. CM will continue to provide support to patient, family and discharge plan of care.
--- NOTE | 2019-01-25 17:22 | W.PM.PROGNOT ---
Date of Service Date of service: 01/25/19 Time of Service: 17:22 Assessment and Plan Assessment and plan (1) E. coli UTI: Status: Acute Assessment and plan: Evidence of fevers, chills, and rigors - now ongoing and unchanged for approximately 48 hours despite broad-spectrum coverage with Pip-Ronny. Currently awaiting culture sensitivities, but given continued fevers recommend coverage for ESBL E.Coli as well with change to Meropenem. CXR checked and negative, influenza negative, and Blood Cultures so far negative. Monitor closely. (2) Encephalitis: Status: Chronic Assessment and plan: Negative for infectious work-up per records. Continue Acyclovir until follow-up with neuro, and AED with Keppra given EEG findings. Symptoms appear resolved. (3) Hypertension: Status: Chronic Assessment and plan: Continue ALEJANDRO-I with hold parameters. (4) DVT prophylaxis: Status: Acute Assessment and plan: SC Enoxaparin Subjective Subjective Interval history since last seen: 74-year-old man with a recent hospitalization due to a questionable diagnosis of encephalitis, admitted from [facility] Emergency Department on 01/23 with a diagnosis of sepsis with a urinary source. Mr. Collins has a past Medical History significant for HTN, hx Prostate Ca and obstructive Uropathy, asthma, HTN, and dyslipidemia. The patient was admitted at [facility] [place] between 01/18 and 01/22 after initial presentation to [facility] ED with Global Aphasia and concern for acute CVA. He received Thrombolytics acutely prior to his discharge, and consideration was given for attempt at thrombectomy, but as patient's symptoms improved, and his MRI returned negative, he was monitored instead. Subsequent LP was reportedly negative , and his original CTA head and neck was negative as well. An EEG was performed showing a left temporal slowing, with consideration for infectious vs. inflammatory Encephalitis as the etiology for patient's presentation. He has been maintained on Acyclovir and prophylactic Keppra since that time. CSF studies have subsequently returned negative for bacterial pathogens, HSV 1&2, VZV, and Oligoclonal banding. Patient's neurologic deficits have mostly resolved, although with family reporting that the patient still takes a longer time to respond to questions, and occasional has trouble with word finding. The patient was brought to the ED one day after discharge from [facility] with reported fevers, initially as high as 39.6, as well as tachycardia, tachypnea, and leukocytosis. Lactate and renal function were normal. The patient's CXR was negative, but urinalysis showed evidence of Nitrite, LE, and Pyuria with >50 WBCs per hpf. Subsequent renal ultrasound showed no evidence of obstruction. Mr. Dave was maintained on broad spectrum coverage with Pip-Ronny, but with continued fevers through his second day of hospitalization. This morning he was found to be in rigors and feeling poorly, with a TMax of 39.8. No other overnight events reported. Exam Narrative Exam Narrative: General: Patient appears uncomfortable and acutely ill, AAOX3, visibly shaking with chills and rigors Neck: Supple CV: Regular, nontachycardic, S1S2, No rubs, murmurs, or gallops. Pulmonary: Clear to auscultation bilaterally, no crackles, wheezing, or rhonchi Abdomen: + Bowel Sounds, soft, nontender, nondistended Vascular: No lower extremity edema Psych: Normal mood and affect. Objective Objective Clinical Data: Abnormal lab results 01/25/19 01/25/19 Range/Units 06:20 06:20 RBC 3.74 L (4.50-6.00) m/cumm Hgb 11.4 L (13.5-17.5) g/dL Hct 33.5 L (40.0-50.0) % RDW 14.3 H (11.8-14.1) % Absolute Neutrophils 7.48 H (1.2-6.7) k/cumm Absolute Lymphocytes 0.68 L (1.2-3.4) k/cumm Sodium 132 L (136-145) mmol/L Potassium 3.3 L (3.5-5.1) mmol/L Anion Gap 11.5 H (3-11) mmol/L Creatinine 0.67 L (0.70-1.30) mg/dL Glucose 128 H (70-100) mg/dL Calcium 7.6 L (8.5-10.1) mg/dL C-Reactive Protein 14.27 H (0.0-0.3) mg/dL Vital Signs Temperature 36.7 C 01/25/19 15:55 Temperature Source Tympanic 01/25/19 15:55 Pulse 66 01/25/19 15:55 Pulse Rhythm Regular 01/25/19 07:35 Respiratory Rate 18 01/25/19 15:55 Respiratory Effort Non-Labored 01/25/19 07:35 Respiratory Depth Normal 01/25/19 07:35 Respiratory Pattern Normal 01/25/19 07:35 Blood Pressure 139/76 01/25/19 15:55 Blood Pressure Position Supine 01/23/19 16:28 Pulse Oximetry 98 01/25/19 15:55 Oxygen Delivery Method Room Air 01/25/19 15:55 Oxygen Flow Rate 0 01/25/19 15:55 Pain Level 0 01/25/19 15:55 Comment 01/25/19 11:41 Intake & Output 01/24/19 01/25/19 01/25/19 23:59 11:59 23:59 Intake Total 1840 / 4633.334 660 / 1081.667 421.667 / 1081.667 Output Total 525 / 2000 2095 / 3695 1600 / 3695 Balance 1315 / 2633.334 -1435 / -2613.333 -1178.333 / -2613.333 Intake: IV 1350 / 3283.334 50 / 221.667 171.667 / 221.667 Oral 490 / 1350 610 / 860 250 / 860 Output: Urine 525 / 1999 2095 / 3695 1600 / 3695 Other: Urine Color Yellow Pale Pale Yellow Urine Appearance Clear Clear Clear Urine Odor Normal None Normal Comment voided x2 within an hour for 250 voided 325 Stool Size Moderate Stool Characteristics Formed Brown Voiding Methods Urinal Urinal Urinal Laboratory Results WBC 8.78 k/cumm (4.4-10.8) D 01/25/19 06:20 RBC 3.74 m/cumm (4.50-6.00) L 01/25/19 06:20 Hgb 11.4 g/dL (13.5-17.5) L 01/25/19 06:20 Hct 33.5 % (40.0-50.0) L 01/25/19 06:20 MCV 89.6 fL (80-95) 01/25/19 06:20 MCH 30.5 pg (27.0-33.0) 01/25/19 06:20 MCHC 34.0 g/dL (32.0-36.0) 01/25/19 06:20 RDW 14.3 % (11.8-14.1) H 01/25/19 06:20 Plt Count 165 x1000/uL (130-400) 01/25/19 06:20 MPV 9.5 fL (8.0-11.0) 01/25/19 06:20 Immature Gran % 0.2 01/25/19 06:20 Neutrophils % 85.2 01/25/19 06:20 Lymphocytes % 7.7 01/25/19 06:20 Monocytes % 6.5 01/25/19 06:20 Eosinophils % 0.3 01/25/19 06:20 Basophils % 0.1 01/25/19 06:20 Absolute Neutrophils 7.48 k/cumm (1.2-6.7) H 01/25/19 06:20 Absolute Lymphocytes 0.68 k/cumm (1.2-3.4) L 01/25/19 06:20 Absolute Monocytes 0.57 k/cumm (0.11-0.7) 01/25/19 06:20 Absolute Eosinophils 0.03 k/cumm (0.0-0.7) 01/25/19 06:20 Absolute Basophils 0.01 k/cumm (0.0-0.2) 01/25/19 06:20 Sodium 132 mmol/L (136-145) L 01/25/19 06:20 Potassium 3.3 mmol/L (3.5-5.1) L 01/25/19 06:20 Chloride 99 mmol/L (98-107) 01/25/19 06:20 Carbon Dioxide 21.5 mmol/L (21.0-32.0) 01/25/19 06:20 Anion Gap 11.5 mmol/L (3-11) H 01/25/19 06:20 BUN 8 mg/dL (7-18) 01/25/19 06:20 Creatinine 0.67 mg/dL (0.70-1.30) L 01/25/19 06:20 Estimated GFR/1.73 m2 >= 60.00 (mL/min/1.73m2) 01/25/19 06:20 Glucose 128 mg/dL (70-100) H 01/25/19 06:20 Lactate 1.4 mmol/L (0.6-1.4) 01/23/19 15:25 Calcium 7.6 mg/dL (8.5-10.1) L 01/25/19 06:20 Magnesium 1.8 mg/dL (1.8-2.4) 01/25/19 06:20 Total Bilirubin 0.5 mg/dL (0.2-1.0) 01/23/19 15:25 AST 18 U/L (15-37) 01/23/19 15:25 ALT 22 U/L (16-63) 01/23/19 15:25 Alkaline Phosphatase 68 U/L (46-116) 01/23/19 15:25 Troponin I < 0.05 ng/mL (0.00-0.06) 01/23/19 20:08 C-Reactive Protein 14.27 mg/dL (0.0-0.3) H 01/25/19 06:20 Total Protein 6.6 g/dL (6.4-8.2) 01/23/19 15:25 Albumin 3.6 g/dL (3.4-5.0) 01/23/19 15:25 Procalcitonin < 0.1 ng/mL 01/24/19 06:05 Urine Color Yellow (Yellow) 01/23/19 17:25 Urine Clarity Cloudy (Clear) 01/23/19 17:25 Urine pH 5.5 (5-8) 01/23/19 17:25 Ur Specific [place] 1.020 (1.005-1.025) 01/23/19 17:25 Urine Protein Negative mg/dL (Negative) 01/23/19 17:25 Urine Ketones Negative mg/dL (Negative) 01/23/19 17:25 Urine Blood Small (Negative) H 01/23/19 17:25 Urine Nitrite Positive (Negative) H 01/23/19 17:25 Urine Bilirubin Negative (Negative) 01/23/19 17:25 Urine Urobilinogen 0.2 EU/dL (Up TO 0.2) 01/23/19 17:25 Ur Leukocyte Esterase Moderate (Negative) H 01/23/19 17:25 Urine RBC Negative (0-2) 01/23/19 17:25 Urine WBC >50 HPF (0-5) 01/23/19 17:25 Ur Epithelial Cells Negative HPF (Negative) 01/23/19 17:25 Urine Crystals Negative HPF (Negative) 01/23/19 17:25 Urine Bacteria Many HPF (Negative) 01/23/19 17:25 Urine Casts Negative LPF (Negative) 01/23/19 17:25 Urine Mucus Negative (Negative) 01/23/19 17:25 Urine Other Negative (Negative) 01/23/19 17:25 Ur Culture Indicated? Yes 01/23/19 17:25 Urine Glucose Negative mg/dL (Negative) 01/23/19 17:25
[2019-01-25] MEDS: Enoxaparin 40 MG/0.4 ML SYR SC (22:43)
[2019-01-26] VITALS (7 sets, daily range): BP systolic 134–167; BP diastolic 70–93; PULSE 76–81; RESP 17–20; TEMP 36.6–37.4; O2SAT 95–98
[2019-01-26] MEDS: Normal Saline Flush 10 ML SYR IVP (01:55)
[2019-01-26 07:18] LABS: Abs Immature Grans 0.01 k/cumm (0.0-0.09); Absolute Basophil Count 0.02 k/cumm (0.0-0.2); Absolute Eosinophil Count 0.17 k/cumm (0.0-0.7); Absolute Lymphocyte Count 0.86 k/cumm (1.2-3.4); Absolute Monocyte Count 0.74 k/cumm (0.11-0.7); Absolute Neutrophil Count 3.89 k/cumm (1.2-6.7); Basophils % 0.4; HGB 10.9 g/dL (13.5-17.5); Immature Grans % 0.2; Lymphocytes % 15.1; Mean Corpuscular Hemoglobin 29.9 pg (27.0-33.0); Mean Corpuscular Volume 90.4 fL (80-95); Mean Platelet Volume 9.2 fL (8.0-11.0); Neutrophils % 68.3; Platelet Count 157 x1000/uL (130-400); RBC 3.65 m/cumm (4.50-6.00); RBC Distribution Width 14.4 % (11.8-14.1); White Blood Cell Count 5.69 k/cumm (4.4-10.8)
[2019-01-26 07:23] LABS: Anion Gap 7.4 mmol/L (3-11); BUN 5 mg/dL (7-18); CO2 25.6 mmol/L (21.0-32.0); CREATININE 0.67 mg/dL (0.70-1.30); Chloride 103 mmol/L (98-107); Glucose 116 mg/dL (70-100); Magnesium 1.9 mg/dL (1.8-2.4); Potassium 3.9 mmol/L (3.5-5.1); Sodium 136 mmol/L (136-145)
[2019-01-26] MEDS: Ascorbic Acid 500 MG TAB 1500 MG PO (09:13)
[2019-01-26] MEDS: levETIRAcetam 500 MG TAB PO ×2 (09:13→19:46)
[2019-01-26] MEDS: valACYclovir 1,000 MG TAB 1000 MG PO ×3 (09:13→19:46)
[2019-01-26] MEDS: Atorvastatin 20 MG TAB PO (09:13)
[2019-01-26] MEDS: Aspirin E.C. 81 MG TABEC PO (09:13)
[2019-01-26] MEDS: Cetirizine 10 MG TAB PO (09:14)
[2019-01-26] MEDS: Omeprazole 20 MG CAPCR PO (09:14)
[2019-01-26] MEDS: Lisinopril 20 MG TAB PO (09:14)
[2019-01-26] MEDS: Magnesium Gluconate 500 MG TAB PO (09:14)
[2019-01-26] MEDS: DEXTROSE 5%-0.45% SALINE 1,000 ML 100 ML IV ×2 (10:15→19:47)
[2019-01-26] MEDS: Magnesium Oxide 400 MG TAB PO (10:32)
[2019-01-26] MEDS: Potassium Chloride 10 MEQ TABCR PO (10:33)
[2019-01-26] MEDS: Mometasone 220 MCG 14 DOSE INHALER 1 PUFF IH (10:33)
--- NOTE | 2019-01-26 13:48 | W.PM.PROGNOT ---
Date of Service Date of service: 01/26/19 Time of Service: 13:49 Assessment and Plan Assessment and plan (1) E. coli UTI: Status: Acute Assessment and plan: Evidence of fevers, chills, and rigors - initially ongoing and unchanged for approximately 48 hours following admission and despite broad-spectrum coverage with Pip-Ronny. Urine is growing a pansensitive E.Coli, Blood Cultures remain with No Growth X48 hours, and CXR and Influenza were checked and negative.. Patient has undergone a Lumbar Puncture recently, but without any meningeal signs on exam and no complaints of headache or neurological symptoms. - Continue Meropenem, day #2, but cultures without evidence for ESBL species. Will discuss case with ID regarding ultimate antibiotic coverage. (2) Encephalitis: Status: Chronic Assessment and plan: Negative for infectious work-up per records. Continue Acyclovir until follow-up with neuro, and AED with Keppra given EEG findings. Symptoms appear resolved. (3) Hypertension: Status: Chronic Assessment and plan: Continue ALEJANDRO-I with hold parameters. (4) DVT prophylaxis: Status: Acute Assessment and plan: SC Enoxaparin Subjective Subjective Interval history since last seen: 74-year-old man with a recent hospitalization due to a questionable diagnosis of encephalitis, admitted from [facility] Emergency Department on 01/23 with a diagnosis of sepsis with a urinary source. Mr. Collins has a past Medical History significant for HTN, hx Prostate Ca and obstructive Uropathy, asthma, HTN, and dyslipidemia. The patient was admitted at [facility] [place] between 01/18 and 01/22 after initial presentation to [facility] ED with Global Aphasia and concern for acute CVA. He received Thrombolytics acutely prior to his transfer, and consideration was given for attempt at thrombectomy at [facility], but as patient's symptoms improved and his MRI returned negative, he was monitored instead. Subsequent LP was reportedly negative, and his original CTA head and neck was negative as well. An EEG was performed showing a left temporal slowing, with consideration for infectious vs. inflammatory Encephalitis as the etiology for patient's presentation. He has been maintained on Acyclovir and prophylactic Keppra since that time. CSF studies have subsequently returned negative for bacterial pathogens, HSV 1&2, VZV, and Oligoclonal banding. Patient's neurologic deficits have mostly resolved, although with family reporting that the patient still takes a longer time to respond to questions, and occasional has trouble with word finding. The patient was brought to the ED one day after discharge from [facility] with reported fevers, initially as high as 39.6, as well as tachycardia, tachypnea, and leukocytosis. Lactate and renal function were normal. The patient's CXR was negative, but urinalysis showed evidence of Nitrite, LE, and Pyuria with >50 WBCs per hpf. Subsequent renal ultrasound showed no evidence of obstruction. Mr. Dave was maintained on broad spectrum coverage with Pip-Ronny, but with continued fevers through 48 hours of hospitalization. His antibiotic coverage was changed to Meropenem, and since that time Mr. Collins has remained afebrile. This morning he reports improvement in his symptoms overall. His Urine Culture is now showing growth of a pansensitive E.Coli, and Blood Cultures remain without growth. No other overnight events reported. Exam Narrative Exam Narrative: General: Patient appears more comfortable and no longer acutely ill, AAOX3. Neck: Supple CV: Regular, nontachycardic, S1S2, No rubs, murmurs, or gallops. Pulmonary: Clear to auscultation bilaterally, no crackles, wheezing, or rhonchi Abdomen: + Bowel Sounds, soft, nontender, nondistended Vascular: No lower extremity edema Psych: Normal mood and affect. Objective Objective Clinical Data: Abnormal lab results 01/26/19 01/26/19 Range/Units 06:35 06:35 RBC 3.65 L (4.50-6.00) m/cumm Hgb 10.9 L (13.5-17.5) g/dL Hct 33.0 L (40.0-50.0) % RDW 14.4 H (11.8-14.1) % Absolute Lymphocytes 0.86 L (1.2-3.4) k/cumm Absolute Monocytes 0.74 H (0.11-0.7) k/cumm BUN 5 L (7-18) mg/dL Creatinine 0.67 L (0.70-1.30) mg/dL Glucose 116 H (70-100) mg/dL Calcium 8.0 L (8.5-10.1) mg/dL Vital Signs Temperature 37.2 C 01/26/19 11:27 Temperature Source Temporal Artery Scan 01/26/19 11:27 Pulse 78 01/26/19 11:27 Pulse Rhythm Regular 01/26/19 12:46 Respiratory Rate 20 01/26/19 11:27 Respiratory Effort 01/26/19 12:46 Respiratory Depth Normal 01/26/19 12:46 Respiratory Pattern Normal 01/26/19 12:46 Blood Pressure 165/91 H 01/26/19 11:27 Blood Pressure Position Supine 01/23/19 16:28 Pulse Oximetry 97 01/26/19 11:27 Oxygen Delivery Method Room Air 01/26/19 11:27 Oxygen Flow Rate 0 01/26/19 11:27 Pain Level 0 01/26/19 11:27 Comment 01/25/19 23:25 Intake & Output 01/25/19 01/26/19 01/26/19 23:59 11:59 23:59 Intake Total 1731.667 / 2391.667 1100 / 1100 Output Total 2950 / 5045 2580 / 2880 300 / 2880 Balance -1218.333 / -2653.333 -1480 / -1780 -300 / -1780 Intake: IV 1241.667 / 6704.144 5958 / 1100 Oral 490 / 1100 Output: Urine 2950 / 5045 2580 / 2880 300 / 2880 Other: Urine Color Pale Pale Yellow Yellow Urine Appearance Clear Clear Clear Urine Odor None Normal None Stool Size Moderate Moderate Stool Characteristics Soft Formed Brown Voiding Methods Urinal Toilet Urinal Urinal Laboratory Results WBC 5.69 k/cumm (4.4-10.8) D 01/26/19 06:35 RBC 3.65 m/cumm (4.50-6.00) L 01/26/19 06:35 Hgb 10.9 g/dL (13.5-17.5) L 01/26/19 06:35 Hct 33.0 % (40.0-50.0) L 01/26/19 06:35 MCV 90.4 fL (80-95) 01/26/19 06:35 MCH 29.9 pg (27.0-33.0) 01/26/19 06:35 MCHC 33.0 g/dL (32.0-36.0) 01/26/19 06:35 RDW 14.4 % (11.8-14.1) H 01/26/19 06:35 Plt Count 157 x1000/uL (130-400) 01/26/19 06:35 MPV 9.2 fL (8.0-11.0) 01/26/19 06:35 Immature Gran % 0.2 01/26/19 06:35 Neutrophils % 68.3 01/26/19 06:35 Lymphocytes % 15.1 01/26/19 06:35 Monocytes % 13.0 01/26/19 06:35 Eosinophils % 3.0 01/26/19 06:35 Basophils % 0.4 01/26/19 06:35 Absolute Neutrophils 3.89 k/cumm (1.2-6.7) 01/26/19 06:35 Absolute Lymphocytes 0.86 k/cumm (1.2-3.4) L 01/26/19 06:35 Absolute Monocytes 0.74 k/cumm (0.11-0.7) H 01/26/19 06:35 Absolute Eosinophils 0.17 k/cumm (0.0-0.7) 01/26/19 06:35 Absolute Basophils 0.02 k/cumm (0.0-0.2) 01/26/19 06:35 Sodium 136 mmol/L (136-145) 01/26/19 06:35 Potassium 3.9 mmol/L (3.5-5.1) 01/26/19 06:35 Chloride 103 mmol/L (98-107) 01/26/19 06:35 Carbon Dioxide 25.6 mmol/L (21.0-32.0) 01/26/19 06:35 Anion Gap 7.4 mmol/L (3-11) 01/26/19 06:35 BUN 5 mg/dL (7-18) L 01/26/19 06:35 Creatinine 0.67 mg/dL (0.70-1.30) L 01/26/19 06:35 Estimated GFR/1.73 m2 >= 60.00 (mL/min/1.73m2) 01/26/19 06:35 Glucose 116 mg/dL (70-100) H 01/26/19 06:35 Lactate 1.4 mmol/L (0.6-1.4) 01/23/19 15:25 Calcium 8.0 mg/dL (8.5-10.1) L 01/26/19 06:35 Magnesium 1.9 mg/dL (1.8-2.4) 01/26/19 06:35 Total Bilirubin 0.5 mg/dL (0.2-1.0) 01/23/19 15:25 AST 18 U/L (15-37) 01/23/19 15:25 ALT 22 U/L (16-63) 01/23/19 15:25 Alkaline Phosphatase 68 U/L (46-116) 01/23/19 15:25 Troponin I < 0.05 ng/mL (0.00-0.06) 01/23/19 20:08 C-Reactive Protein 14.27 mg/dL (0.0-0.3) H 01/25/19 06:20 Total Protein 6.6 g/dL (6.4-8.2) 01/23/19 15:25 Albumin 3.6 g/dL (3.4-5.0) 01/23/19 15:25 Procalcitonin < 0.1 ng/mL 01/24/19 06:05 Urine Color Yellow (Yellow) 01/23/19 17:25 Urine Clarity Cloudy (Clear) 01/23/19 17:25 Urine pH 5.5 (5-8) 01/23/19 17:25 Ur Specific [place] 1.020 (1.005-1.025) 01/23/19 17:25 Urine Protein Negative mg/dL (Negative) 01/23/19 17:25 Urine Ketones Negative mg/dL (Negative) 01/23/19 17:25 Urine Blood Small (Negative) H 01/23/19 17:25 Urine Nitrite Positive (Negative) H 01/23/19 17:25 Urine Bilirubin Negative (Negative) 01/23/19 17:25 Urine Urobilinogen 0.2 EU/dL (Up TO 0.2) 01/23/19 17:25 Ur Leukocyte Esterase Moderate (Negative) H 01/23/19 17:25 Urine RBC Negative (0-2) 01/23/19 17:25 Urine WBC >50 HPF (0-5) 01/23/19 17:25 Ur Epithelial Cells Negative HPF (Negative) 01/23/19 17:25 Urine Crystals Negative HPF (Negative) 01/23/19 17:25 Urine Bacteria Many HPF (Negative) 01/23/19 17:25 Urine Casts Negative LPF (Negative) 01/23/19 17:25 Urine Mucus Negative (Negative) 01/23/19 17:25 Urine Other Negative (Negative) 01/23/19 17:25 Ur Culture Indicated? Yes 01/23/19 17:25 Urine Glucose Negative mg/dL (Negative) 01/23/19 17:25
--- NOTE | 2019-01-26 13:59 | CMPROGNOTE_ITS ---
- If Service Date Differs Date of service: 01/26/19 Time of Service: 13:59 Care Management Progress Note S/O: Andrey remains inpatient at this time no change in status today. He [place] ambulating in the parks with his spouse he remains on IV antibiotics. A: Andrey is a 74 year old male that was admitted with fever, UTI cultures pending, and possible HCAP recent [place] [facility] P:Andrey continues to be closely monitored and treated for pneumonia. Anticipate he will be discharged home with when ready per MD and follow up with his PCP. CM will continue to provide support to patient, family and discharge plan of care.
[2019-01-26] MEDS: Enoxaparin 40 MG/0.4 ML SYR SC (21:48)
[2019-01-27] VITALS (7 sets, daily range): BP systolic 143–173; BP diastolic 81–99; PULSE 70–81; RESP 16–18; TEMP 36.1–38.1; O2SAT 96–98
[2019-01-27] MEDS: Acetaminophen 325 MG TAB 650 MG PO ×3 (02:41→19:34)
[2019-01-27] MEDS: DEXTROSE 5%-0.45% SALINE 1,000 ML 100 ML IV (05:32)
[2019-01-27 07:23] LABS: Abs Immature Grans 0.01 k/cumm (0.0-0.09); Absolute Basophil Count 0.02 k/cumm (0.0-0.2); Absolute Eosinophil Count 0.19 k/cumm (0.0-0.7); Absolute Lymphocyte Count 1.15 k/cumm (1.2-3.4); Absolute Monocyte Count 0.87 k/cumm (0.11-0.7); Absolute Neutrophil Count 3.28 k/cumm (1.2-6.7); Basophils % 0.4; Eosinophils % 3.4; HCT 33.6 % (40.0-50.0); HGB 11.3 g/dL (13.5-17.5); Immature Grans % 0.2; Lymphocytes % 20.8; Mean Corp. HGB Concentration 33.6 g/dL (32.0-36.0); Mean Corpuscular Hemoglobin 30.4 pg (27.0-33.0); Mean Corpuscular Volume 90.3 fL (80-95); Monocytes % 15.8; Neutrophils % 59.4; Platelet Count 185 x1000/uL (130-400); RBC 3.72 m/cumm (4.50-6.00); RBC Distribution Width 14.3 % (11.8-14.1); White Blood Cell Count 5.52 k/cumm (4.4-10.8)
[2019-01-27 07:35] LABS: Anion Gap 7.4 mmol/L (3-11); BUN 6 mg/dL (7-18); CO2 27.6 mmol/L (21.0-32.0); CREATININE 0.71 mg/dL (0.70-1.30); Calcium 8.1 mg/dL (8.5-10.1); Chloride 99 mmol/L (98-107); Glucose 111 mg/dL (70-100); Magnesium 1.8 mg/dL (1.8-2.4); Potassium 3.7 mmol/L (3.5-5.1); Sodium 134 mmol/L (136-145)
[2019-01-27] MEDS: Omeprazole 20 MG CAPCR PO (08:39)
[2019-01-27] MEDS: Aspirin E.C. 81 MG TABEC PO (08:39)
[2019-01-27] MEDS: valACYclovir 1,000 MG TAB 1000 MG PO ×3 (08:39→19:34)
[2019-01-27] MEDS: Atorvastatin 20 MG TAB PO (08:40)
[2019-01-27] MEDS: Magnesium Gluconate 500 MG TAB PO (08:40)
[2019-01-27] MEDS: Cetirizine 10 MG TAB PO (08:40)
[2019-01-27] MEDS: Lisinopril 20 MG TAB PO (08:40)
[2019-01-27] MEDS: Ascorbic Acid 500 MG TAB 1500 MG PO (08:40)
[2019-01-27] MEDS: levETIRAcetam 500 MG TAB PO ×2 (08:41→19:34)
[2019-01-27] MEDS: Magnesium Oxide 400 MG TAB PO (09:21)
[2019-01-27] MEDS: CIPROFLOXACIN 400 MG/200 ML BAG 200 MG IVPB (09:21)
[2019-01-27] MEDS: POTASSIUM CHLORIDE 20 MEQ, POTASSIUM CHLORIDE 10 MEQ 30 MEQ PO (09:21)
--- NOTE | 2019-01-27 10:55 | PGE_ITS ---
Date of Service Date of service: 01/27/19 Time of Service: 10:55 Assessment and Plan Assessment and plan (1) E. coli UTI: Status: Acute Assessment and plan: Evidence of fevers, chills, and rigors - initially ongoing and unchanged for approximately 48 hours following admission and despite broad-spectrum coverage with Pip-Ronny. Urine is growing a pansensitive E.Coli, Blood Cultures remain with No Growth X72 hours, and CXR and Influenza were checked and negative. Ongoing initial fevers may have been secondary to intermittent transient bacteremia that was not caught on blood cultures. Patient has undergone a Lumbar Puncture recently, but without any meningeal signs on exam and no complaints of neurological symptoms. - Received 2 days of Meropenem - will change to IV Cipro today, and monitor for an additional 24 hours to ensure lack of further fevers. Discussed case with ID who agrees with assessment and management. (2) Encephalitis: Status: Chronic Assessment and plan: Negative for infectious work-up per records. Continue Acyclovir until follow-up with neuro, and AED with Keppra given EEG findings. Symptoms appear resolved. (3) Hypertension: Status: Chronic Assessment and plan: Continue ALEJANDRO-I with hold parameters. Current elevated blood pressures may be in light of IVFs - discontinued this morning. (4) Constipation: Status: Acute Assessment and plan: Bowel sounds present and normal, and abdominal exam benign. Initiate bowel regimen. (5) DVT prophylaxis: Status: Acute Assessment and plan: SC Enoxaparin Subjective Subjective Interval history since last seen: 74-year-old man with a recent hospitalization due to a questionable diagnosis of encephalitis, admitted from [facility] Emergency Department on 01/23 with a diagnosis of sepsis with a urinary source. Mr. Collins has a past Medical History significant for HTN, hx Prostate Ca and obstructive Uropathy, asthma, HTN, and dyslipidemia. The patient was admitted at [facility] between 01/18 and 01/22 after initial presentation to [facility] ED with Global Aphasia and concern for acute CVA. He received Thrombolytics acutely prior to his transfer, and consideration was given for attempt at thrombectomy at [facility], but as patient's symptoms improved and his MRI returned negative, he was monitored instead. Subsequent LP was reportedly negative, and his original CTA head and neck was negative as well. An EEG was performed showing a left temporal slowing, with consideration for infectious vs. inflammatory Encephalitis as the etiology for the patient's presentation. He has been maintained on Acyclovir and prophylactic Keppra since that time. CSF studies have subsequently returned negative for bacterial pathogens, HSV 1&2, VZV, and Oligoclonal banding. Patient's neurologic deficits have mostly resolved, although with family reporting that the patient still takes a longer time to respond to questions, and occasional has trouble with word finding. Mr. Collins was brought to the ED one day after discharge from [facility] with reported fevers, initially as high as 39.6, as well as tachycardia, tachypnea, and leukocytosis. Lactate and renal function were normal. The patient's CXR was negative, but urinalysis showed evidence of positive Nitrite, LE, and Pyuria with >50 WBCs per hpf. Subsequent renal ultrasound showed no evidence of obstruction. Mr. Dave was maintained on broad spectrum coverage with Pip- Ronny, but with continued fevers through 48 hours of hospitalization. His antibiotic coverage was changed to Meropenem, and since that time Mr. Collins has remained afebrile. His urine is growing a pansensitive E.COli This morning he reports improvement in his symptoms of fevers and chills, but reports constipation. His Urine Culture is now showing growth of a pansensitive E.Coli, and Blood Cultures remain without growth. No other overnight events reported. Exam Narrative Exam Narrative: General: Patient appears more comfortable and no longer acutely ill, AAOX3. Neck: Supple CV: Regular, nontachycardic, S1S2, No rubs, murmurs, or gallops. Pulmonary: Clear to auscultation bilaterally, no crackles, wheezing, or rhonchi Abdomen: + Bowel Sounds, soft, nontender, nondistended Vascular: +1-2 b/l lower extremity edema, reported as chronic Psych: Normal mood and affect. Objective Objective Clinical Data: Abnormal lab results 01/27/19 01/27/19 Range/Units 06:05 06:05 RBC 3.72 L (4.50-6.00) m/cumm Hgb 11.3 L (13.5-17.5) g/dL Hct 33.6 L (40.0-50.0) % RDW 14.3 H (11.8-14.1) % Absolute Lymphocytes 1.15 L (1.2-3.4) k/cumm Absolute Monocytes 0.87 H (0.11-0.7) k/cumm Sodium 134 L (136-145) mmol/L BUN 6 L (7-18) mg/dL Glucose 111 H (70-100) mg/dL Calcium 8.1 L (8.5-10.1) mg/dL Vital Signs Temperature 36.7 C 01/27/19 07:20 Temperature Source Tympanic 01/27/19 07:20 Pulse 70 01/27/19 07:20 Pulse Rhythm Regular 01/27/19 04:00 Respiratory Rate 16 01/27/19 07:20 Respiratory Effort 01/27/19 04:00 Respiratory Depth Normal 01/27/19 04:00 Respiratory Pattern Normal 01/27/19 04:00 Blood Pressure 173/99 H 01/27/19 07:20 Blood Pressure Position Supine 01/23/19 16:28 Pulse Oximetry 96 01/27/19 07:20 Oxygen Delivery Method Room Air 01/27/19 07:20 Oxygen Flow Rate 0 01/27/19 07:20 Pain Level 9 01/27/19 08:39 Comment 01/27/19 07:20 Intake & Output 01/26/19 01/26/19 01/27/19 11:59 23:59 11:59 Intake Total 1450 / 3713.333 2263.333 / 3713.333 1521.667 / 1521.667 Output Total 2580 / 5610 3030 / 5610 1575 / 1575 Balance -1130 / -1896.667 -766.667 / -1896.667 -53.333 / -53.333 Intake: IV 1200 / 2253.333 1053.333 / 2253.333 1021.667 / 1021.667 Oral 250 / 1460 1210 / 1460 500 / 500 Output: Urine 2580 / 5610 3030 / 5610 1575 / 1575 Other: Urine Color Pale Yellow Yellow Urine Appearance Clear Clear Clear Urine Odor Normal None Comment two voids. Stool Size Moderate Small Stool Characteristics Formed Soft Brown Voiding Methods Toilet Urinal Urinal Urinal Laboratory Results WBC 5.52 k/cumm (4.4-10.8) 01/27/19 06:05 RBC 3.72 m/cumm (4.50-6.00) L 01/27/19 06:05 Hgb 11.3 g/dL (13.5-17.5) L 01/27/19 06:05 Hct 33.6 % (40.0-50.0) L 01/27/19 06:05 MCV 90.3 fL (80-95) 01/27/19 06:05 MCH 30.4 pg (27.0-33.0) 01/27/19 06:05 MCHC 33.6 g/dL (32.0-36.0) 01/27/19 06:05 RDW 14.3 % (11.8-14.1) H 01/27/19 06:05 Plt Count 185 x1000/uL (130-400) 01/27/19 06:05 MPV 9.0 fL (8.0-11.0) 01/27/19 06:05 Immature Gran % 0.2 01/27/19 06:05 Neutrophils % 59.4 01/27/19 06:05 Lymphocytes % 20.8 01/27/19 06:05 Monocytes % 15.8 01/27/19 06:05 Eosinophils % 3.4 01/27/19 06:05 Basophils % 0.4 01/27/19 06:05 Absolute Neutrophils 3.28 k/cumm (1.2-6.7) 01/27/19 06:05 Absolute Lymphocytes 1.15 k/cumm (1.2-3.4) L 01/27/19 06:05 Absolute Monocytes 0.87 k/cumm (0.11-0.7) H 01/27/19 06:05 Absolute Eosinophils 0.19 k/cumm (0.0-0.7) 01/27/19 06:05 Absolute Basophils 0.02 k/cumm (0.0-0.2) 01/27/19 06:05 Sodium 134 mmol/L (136-145) L 01/27/19 06:05 Potassium 3.7 mmol/L (3.5-5.1) 01/27/19 06:05 Chloride 99 mmol/L (98-107) 01/27/19 06:05 Carbon Dioxide 27.6 mmol/L (21.0-32.0) 01/27/19 06:05 Anion Gap 7.4 mmol/L (3-11) 01/27/19 06:05 BUN 6 mg/dL (7-18) L 01/27/19 06:05 Creatinine 0.71 mg/dL (0.70-1.30) 01/27/19 06:05 Estimated GFR/1.73 m2 >= 60.00 (mL/min/1.73m2) 01/27/19 06:05 Glucose 111 mg/dL (70-100) H 01/27/19 06:05 Lactate 1.4 mmol/L (0.6-1.4) 01/23/19 15:25 Calcium 8.1 mg/dL (8.5-10.1) L 01/27/19 06:05 Magnesium 1.8 mg/dL (1.8-2.4) 01/27/19 06:05 Total Bilirubin 0.5 mg/dL (0.2-1.0) 01/23/19 15:25 AST 18 U/L (15-37) 01/23/19 15:25 ALT 22 U/L (16-63) 01/23/19 15:25 Alkaline Phosphatase 68 U/L (46-116) 01/23/19 15:25 Troponin I < 0.05 ng/mL (0.00-0.06) 01/23/19 20:08 C-Reactive Protein 14.27 mg/dL (0.0-0.3) H 01/25/19 06:20 Total Protein 6.6 g/dL (6.4-8.2) 01/23/19 15:25 Albumin 3.6 g/dL (3.4-5.0) 01/23/19 15:25 Procalcitonin < 0.1 ng/mL 01/24/19 06:05 Urine Color Yellow (Yellow) 01/23/19 17:25 Urine Clarity Cloudy (Clear) 01/23/19 17:25 Urine pH 5.5 (5-8) 01/23/19 17:25 Ur Specific [place] 1.020 (1.005-1.025) 01/23/19 17:25 Urine Protein Negative mg/dL (Negative) 01/23/19 17:25 Urine Ketones Negative mg/dL (Negative) 01/23/19 17:25 Urine Blood Small (Negative) H 01/23/19 17:25 Urine Nitrite Positive (Negative) H 01/23/19 17:25 Urine Bilirubin Negative (Negative) 01/23/19 17:25 Urine Urobilinogen 0.2 EU/dL (Up TO 0.2) 01/23/19 17:25 Ur Leukocyte Esterase Moderate (Negative) H 01/23/19 17:25 Urine RBC Negative (0-2) 01/23/19 17:25 Urine WBC >50 HPF (0-5) 01/23/19 17:25 Ur Epithelial Cells Negative HPF (Negative) 01/23/19 17:25 Urine Crystals Negative HPF (Negative) 01/23/19 17:25 Urine Bacteria Many HPF (Negative) 01/23/19 17:25 Urine Casts Negative LPF (Negative) 01/23/19 17:25 Urine Mucus Negative (Negative) 01/23/19 17:25 Urine Other Negative (Negative) 01/23/19 17:25 Ur Culture Indicated? Yes 01/23/19 17:25 Urine Glucose Negative mg/dL (Negative) 01/23/19 17:25
[2019-01-27] MEDS: Normal Saline Flush 10 ML SYR IVP ×2 (11:29→21:37)
[2019-01-27] MEDS: Mometasone 220 MCG 14 DOSE INHALER 1 PUFF IH (11:29)
--- NOTE | 2019-01-27 12:26 | PDOC.CMPRO ---
Care Management Progress Note S/O: Andrey continues to be closely monitored and treated for UTI infection, he is ambulating independently outside of his room at this time. Per MD, if Andrey remains afebrile overnight, he will likely discharge home tomorrow. CM continues to follow. A: Andrey is a 74 year old male that was admitted with fever, UTI cultures pending, and possible HCAP recent admission to [facility] P: Andrey continues to be closely monitored and treated for pneumonia. Anticipate he will be discharged home with when ready per MD and follow up with his PCP. CM will continue to provide support to patient, family and discharge plan of care.
[2019-01-27] MEDS: Docusate Sodium 100 MG CAP PO ×2 (13:38→19:35)
--- NOTE | 2019-01-27 14:09 | CHAPLAIN ---
Andrey was watching tv when I visited this morning. He said he's not feeling quite like his usual self yet, but is bored being here. His , a retired nurse, will be in later today. Andrey said he's not sure when he'll be discharged. Fr. Metzger was visiting [facility] patients yesterday, but Andrey said he didn't see Fr. Metzger, but he may have been sleeping.
[2019-01-27] MEDS: Enoxaparin 40 MG/0.4 ML SYR SC (21:37)
[2019-01-27] MEDS: levoFLOXacin 750 MG/150 ML BAG 100 MG IVPB (21:37)
[2019-01-28 03:27] VITALS: TEMP 37.4
[2019-01-28 05:40] VITALS: BP 155/96; PULSE 81; RESP 18; TEMP 37.2; O2SAT 96
[2019-01-28] MEDS: Acetaminophen 325 MG TAB 650 MG PO (05:50)
[2019-01-28 06:56] LABS: Abs Immature Grans 0.01 k/cumm (0.0-0.09); Absolute Basophil Count 0.02 k/cumm (0.0-0.2); Absolute Eosinophil Count 0.28 k/cumm (0.0-0.7); Absolute Lymphocyte Count 1.25 k/cumm (1.2-3.4); Absolute Monocyte Count 0.89 k/cumm (0.11-0.7); Absolute Neutrophil Count 3.71 k/cumm (1.2-6.7); Basophils % 0.3; Eosinophils % 4.5; HGB 12.3 g/dL (13.5-17.5); Immature Grans % 0.2; Lymphocytes % 20.3; Mean Corp. HGB Concentration 34.2 g/dL (32.0-36.0); Mean Corpuscular Hemoglobin 30.6 pg (27.0-33.0); Mean Corpuscular Volume 89.6 fL (80-95); Mean Platelet Volume 8.8 fL (8.0-11.0); Monocytes % 14.4; Neutrophils % 60.3; Platelet Count 205 x1000/uL (130-400); RBC 4.02 m/cumm (4.50-6.00); RBC Distribution Width 14.1 % (11.8-14.1); White Blood Cell Count 6.16 k/cumm (4.4-10.8)
[2019-01-28 07:05] LABS: Anion Gap 7.7 mmol/L (3-11); BUN 9 mg/dL (7-18); CO2 27.3 mmol/L (21.0-32.0); CREATININE 0.71 mg/dL (0.70-1.30); Calcium 8.6 mg/dL (8.5-10.1); Chloride 98 mmol/L (98-107); Glucose 102 mg/dL (70-100); Magnesium 1.9 mg/dL (1.8-2.4); Potassium 4.1 mmol/L (3.5-5.1); Sodium 133 mmol/L (136-145)
--- NOTE | 2019-01-28 08:00 | DI.RAD_ITS ---
EXAM: XR CHEST 2V PA LATERAL CLINICAL HISTORY: Persistent fever. TECHNIQUE: 2D digital imaging was performed. COMPARISON: XR CHEST 2V PA LATERAL from 01/23/2019 FINDINGS: LUNGS: Clear. No pleural abnormality seen. HEART: Normal. MEDIASTINUM: Normal. OTHER FINDINGS:Normal. IMPRESSION: No acute pulmonary findings.
[2019-01-28] MEDS: Mometasone 220 MCG 14 DOSE INHALER 1 PUFF IH (08:06)
[2019-01-28 08:19] VITALS: BP 154/91; PULSE 82; RESP 18; TEMP 36.5; O2SAT 95
[2019-01-28] MEDS: levETIRAcetam 500 MG TAB PO ×2 (09:27→19:38)
[2019-01-28] MEDS: valACYclovir 1,000 MG TAB 1000 MG PO ×3 (09:27→19:37)
[2019-01-28] MEDS: Magnesium Gluconate 500 MG TAB PO (09:27)
[2019-01-28] MEDS: Polyethylene Glycol 3350 17 GM PACKET PO (09:27)
[2019-01-28] MEDS: Atorvastatin 20 MG TAB PO (09:28)
[2019-01-28] MEDS: Lisinopril 20 MG TAB PO (09:28)
[2019-01-28] MEDS: Magnesium Oxide 400 MG TAB PO (09:28)
[2019-01-28] MEDS: Docusate Sodium 100 MG CAP PO ×2 (09:28→19:38)
[2019-01-28] MEDS: Aspirin E.C. 81 MG TABEC PO (09:28)
[2019-01-28] MEDS: Omeprazole 20 MG CAPCR PO (09:28)
[2019-01-28] MEDS: Ascorbic Acid 500 MG TAB 1500 MG PO (09:28)
[2019-01-28] MEDS: Cetirizine 10 MG TAB PO (09:29)
[2019-01-28 11:25] VITALS: BP 137/87; PULSE 93; RESP 18; TEMP 37; O2SAT 97
--- NOTE | 2019-01-28 11:25 | PGE_ITS ---
Date of Service Date of service: 01/28/19 Time of Service: 11:25 Assessment and Plan Assessment and plan (1) E. coli UTI: Status: Acute Assessment and plan: Evidence of fevers, chills, and rigors - initially ongoing and unchanged for approximately 48 hours following admission and despite broad-spectrum coverage with Pip-Ronny. Urine is growing a pansensitive E.Coli, Blood Cultures remain with No Growth X96 hours, and initial CXR and Influenza were checked and negative. Ongoing initial fevers may have been secondary to intermittent transient bacteremia that was not caught on blood cultures. Patient has undergone a Lumbar Puncture recently, but without any meningeal signs on exam and no complaints of neurological symptoms. - Received 2 days of Meropenem, but with fever of 38.1 last night following change to IV Cipro. Given concurrent cough will change to Levofloxacin, and recheck CXR, and monitor for an additional 24 hours to ensure lack of further fevers. (2) Encephalitis: Status: Chronic Assessment and plan: Negative for infectious work-up per records. Continue Acyclovir until follow-up with neuro, and AED with Keppra given EEG findings. Symptoms appear resolved. No meningeal signs clinically. (3) Hypertension: Status: Chronic Assessment and plan: Continue ALEJANDRO-I with hold parameters. (4) Constipation: Status: Acute Assessment and plan: Bowel sounds present and normal, and abdominal exam benign. Initiated bowel regimen with good results. (5) DVT prophylaxis: Status: Acute Assessment and plan: SC Enoxaparin Subjective Subjective Interval history since last seen: 74-year-old man with a recent hospitalization due to a questionable diagnosis of encephalitis, admitted from [facility] Emergency Department on 01/23 with a diagnosis of sepsis with a urinary source. Mr. Collins has a past Medical History significant for HTN, hx Prostate Ca and obstructive Uropathy, asthma, HTN, and dyslipidemia. The patient was admitted at [facility] between 01/18 and 01/22 after initial presentation to [facility] ED with Global Aphasia and concern for acute CVA. He received Thrombolytics acutely prior to his transfer, and consideration was given for attempt at thrombectomy at [facility], but as patient's symptoms improved and his MRI returned negative, he was monitored instead. Subsequent LP was reportedly negative, and his original CTA head and neck was negative as well. An EEG was performed showing a left temporal slowing, with consideration for infectious vs. inflammatory Encephalitis as the etiology for the patient's presentation. He has been maintained on Acyclovir and prophylactic Keppra since that time. CSF studies have subsequently returned negative for bacterial pathogens, HSV 1&2, VZV, and Oligoclonal banding. Patient's neurologic deficits have mostly resolved, although with family reporting that the patient still takes a longer time to respond to questions, and occasional has trouble with word finding. Mr. Collins was brought to the ED one day after discharge from [facility] with reported fevers, initially as high as 39.6, as well as tachycardia, tachypnea, and leukocytosis. Lactate and renal function were normal. The patient's CXR was negative, but urinalysis showed evidence of positive Nitrite, LE, and Pyuria with >50 WBCs per hpf. Subsequent renal ultrasound showed no evidence of obstruction. Mr. Dave was maintained on broad spectrum coverage with Pip- Ronny, but with continued fevers through 48 hours of hospitalization. His antibiotic coverage was changed to Meropenem, and defervesced. His urine grew a pansensitive E. Coli, and he was changed to IV Cipro, but experienced another fever overnight at 38.1. This morning he reports continued improvement in his symptoms, but reports continued cough which he states started at time of admission. His Urine Culture is now showing growth of a pansensitive E.Coli, and Blood Cultures remain without growth. No other overnight events reported. Exam Narrative Exam Narrative: General: Patient appears more comfortable and no longer acutely ill, AAOX3. Neck: Supple CV: Regular, nontachycardic, S1S2, No rubs, murmurs, or gallops. Pulmonary: Clear to auscultation bilaterally, no crackles, wheezing, or rhonchi Abdomen: + Bowel Sounds, soft, nontender, nondistended Vascular: +1-2 b/l lower extremity edema, reported as chronic Psych: Normal mood and affect. Objective Objective Clinical Data: Abnormal lab results 01/28/19 01/28/19 Range/Units 06:07 06:07 RBC 4.02 L (4.50-6.00) m/cumm Hgb 12.3 L (13.5-17.5) g/dL Hct 36.0 L (40.0-50.0) % Absolute Monocytes 0.89 H (0.11-0.7) k/cumm Sodium 133 L (136-145) mmol/L Glucose 102 H (70-100) mg/dL Vital Signs Temperature 36.5 C 01/28/19 08:19 Temperature Source Tympanic 01/28/19 08:19 Pulse 82 01/28/19 08:19 Pulse Rhythm Regular 01/28/19 08:15 Respiratory Rate 18 01/28/19 08:19 Respiratory Effort 01/28/19 08:15 Respiratory Depth Normal 01/28/19 08:15 Respiratory Pattern Normal 01/28/19 08:15 Blood Pressure 154/91 H 01/28/19 08:19 Blood Pressure Position Supine 01/23/19 16:28 Pulse Oximetry 95 01/28/19 08:19 Oxygen Delivery Method Room Air 01/28/19 08:19 Oxygen Flow Rate 0 01/28/19 08:19 Pain Level 0 01/28/19 08:19 Comment 01/28/19 08:19 Intake & Output 01/27/19 01/27/19 01/28/19 11:59 23:59 11:59 Intake Total 1521.667 / 2853.334 1331.667 / 2853.334 870 / 870 Output Total 2175 / 3450 1275 / 3450 1950 / 1950 Balance -653.333 / -596.666 56.667 / -596.666 -1080 / -1080 Weight 79.4 kg Intake: IV 1021.667 / 2113.334 1091.667 / 2113.334 Oral 500 / 740 240 / 740 870 / 870 Output: Urine 2175 / 3450 1275 / 3450 1950 / 1950 Other: Urine Color Pale Pale Yellow Yellow Urine Appearance Clear Clear Clear Urine Odor None Normal Normal Comment After voiding after dinner. Patient was asked to lie in bed, he agreed to be bladder scanned. patient was placed in a supine position, then the gel was applied. Patient was /bladder scanned for 60 cc. Patient was shown the result. He was satisfied with that , this information was given to the [facility] and Dr. Hamlin Stool Size Moderate Moderate Moderate Stool Characteristics Soft Soft Soft Formed Formed Formed Brown Voiding Methods Toilet Urinal Toilet Laboratory Results WBC 6.16 k/cumm (4.4-10.8) 01/28/19 06:07 RBC 4.02 m/cumm (4.50-6.00) L 01/28/19 06:07 Hgb 12.3 g/dL (13.5-17.5) L 01/28/19 06:07 Hct 36.0 % (40.0-50.0) L 01/28/19 06:07 MCV 89.6 fL (80-95) 01/28/19 06:07 MCH 30.6 pg (27.0-33.0) 01/28/19 06:07 MCHC 34.2 g/dL (32.0-36.0) 01/28/19 06:07 RDW 14.1 % (11.8-14.1) 01/28/19 06:07 Plt Count 205 x1000/uL (130-400) 01/28/19 06:07 MPV 8.8 fL (8.0-11.0) 01/28/19 06:07 Immature Gran % 0.2 01/28/19 06:07 Neutrophils % 60.3 01/28/19 06:07 Lymphocytes % 20.3 01/28/19 06:07 Monocytes % 14.4 01/28/19 06:07 Eosinophils % 4.5 01/28/19 06:07 Basophils % 0.3 01/28/19 06:07 Absolute Neutrophils 3.71 k/cumm (1.2-6.7) 01/28/19 06:07 Absolute Lymphocytes 1.25 k/cumm (1.2-3.4) 01/28/19 06:07 Absolute Monocytes 0.89 k/cumm (0.11-0.7) H 01/28/19 06:07 Absolute Eosinophils 0.28 k/cumm (0.0-0.7) 01/28/19 06:07 Absolute Basophils 0.02 k/cumm (0.0-0.2) 01/28/19 06:07 Sodium 133 mmol/L (136-145) L 01/28/19 06:07 Potassium 4.1 mmol/L (3.5-5.1) 01/28/19 06:07 Chloride 98 mmol/L (98-107) 01/28/19 06:07 Carbon Dioxide 27.3 mmol/L (21.0-32.0) 01/28/19 06:07 Anion Gap 7.7 mmol/L (3-11) 01/28/19 06:07 BUN 9 mg/dL (7-18) 01/28/19 06:07 Creatinine 0.71 mg/dL (0.70-1.30) 01/28/19 06:07 Estimated GFR/1.73 m2 >= 60.00 (mL/min/1.73m2) 01/28/19 06:07 Glucose 102 mg/dL (70-100) H 01/28/19 06:07 Lactate 1.4 mmol/L (0.6-1.4) 01/23/19 15:25 Calcium 8.6 mg/dL (8.5-10.1) 01/28/19 06:07 Magnesium 1.9 mg/dL (1.8-2.4) 01/28/19 06:07 Total Bilirubin 0.5 mg/dL (0.2-1.0) 01/23/19 15:25 AST 18 U/L (15-37) 01/23/19 15:25 ALT 22 U/L (16-63) 01/23/19 15:25 Alkaline Phosphatase 68 U/L (46-116) 01/23/19 15:25 Troponin I < 0.05 ng/mL (0.00-0.06) 01/23/19 20:08 C-Reactive Protein 14.27 mg/dL (0.0-0.3) H 01/25/19 06:20 Total Protein 6.6 g/dL (6.4-8.2) 01/23/19 15:25 Albumin 3.6 g/dL (3.4-5.0) 01/23/19 15:25 Procalcitonin < 0.1 ng/mL 01/24/19 06:05 Urine Color Yellow (Yellow) 01/23/19 17:25 Urine Clarity Cloudy (Clear) 01/23/19 17:25 Urine pH 5.5 (5-8) 01/23/19 17:25 Ur Specific [place] 1.020 (1.005-1.025) 01/23/19 17:25 Urine Protein Negative mg/dL (Negative) 01/23/19 17:25 Urine Ketones Negative mg/dL (Negative) 01/23/19 17:25 Urine Blood Small (Negative) H 01/23/19 17:25 Urine Nitrite Positive (Negative) H 01/23/19 17:25 Urine Bilirubin Negative (Negative) 01/23/19 17:25 Urine Urobilinogen 0.2 EU/dL (Up TO 0.2) 01/23/19 17:25 Ur Leukocyte Esterase Moderate (Negative) H 01/23/19 17:25 Urine RBC Negative (0-2) 01/23/19 17:25 Urine WBC >50 HPF (0-5) 01/23/19 17:25 Ur Epithelial Cells Negative HPF (Negative) 01/23/19 17:25 Urine Crystals Negative HPF (Negative) 01/23/19 17:25 Urine Bacteria Many HPF (Negative) 01/23/19 17:25 Urine Casts Negative LPF (Negative) 01/23/19 17:25 Urine Mucus Negative (Negative) 01/23/19 17:25 Urine Other Negative (Negative) 01/23/19 17:25 Ur Culture Indicated? Yes 01/23/19 17:25 Urine Glucose Negative mg/dL (Negative) 01/23/19 17:25
[2019-01-28 15:41] VITALS: BP 111/77; PULSE 85; RESP 18; TEMP 36.2; O2SAT 98
--- NOTE | 2019-01-28 16:23 | CMPROGNOTE_ITS ---
Care Management Progress Note S/O: Andrey was sitting on the side of his bed when CM met with him, he reviewed his stay and his understanding of his treatment plan. He was pleasant in interaction and reported he did not anticipate discharging today due to experiencing a fever overnight. CM continues to follow. A: Andrey is a 74 year old male that was admitted with fever, UTI cultures pending, and possible HCAP recent admission [place] [facility] P: Andrey continues to be closely monitored and treated for pneumonia. Anticipate he will be discharged home with when ready per MD and follow up with his PCP. CM will continue to provide support to patient, family and discharge plan of care.
[2019-01-28 19:00] VITALS: BP 120/71; PULSE 89; RESP 18; TEMP 36.8; O2SAT 97
[2019-01-28] MEDS: Oxybutynin 5 MG TAB PO (20:45)
[2019-01-28] MEDS: levoFLOXacin 750 MG/150 ML BAG 100 MG IVPB (21:21)
[2019-01-28] MEDS: Enoxaparin 40 MG/0.4 ML SYR SC (21:23)
[2019-01-28] MEDS: Senna TAB 1 TAB PO (21:23)
[2019-01-28] MEDS: Normal Saline Flush 10 ML SYR IVP (21:23)
[2019-01-29 02:06] VITALS: BP 120/73; PULSE 82; RESP 20; TEMP 36.4; O2SAT 97
[2019-01-29 04:03] VITALS: BP 149/86; PULSE 71; RESP 20; TEMP 37.1; O2SAT 98
[2019-01-29 07:15] VITALS: BP 148/85; PULSE 82; RESP 16; TEMP 36.4; O2SAT 97
[2019-01-29 07:17] LABS: Abs Immature Grans 0.02 k/cumm (0.0-0.09); Absolute Basophil Count 0.02 k/cumm (0.0-0.2); Absolute Eosinophil Count 0.24 k/cumm (0.0-0.7); Absolute Lymphocyte Count 1.42 k/cumm (1.2-3.4); Absolute Monocyte Count 0.88 k/cumm (0.11-0.7); Absolute Neutrophil Count 4.46 k/cumm (1.2-6.7); Basophils % 0.3; Eosinophils % 3.4; HCT 36.5 % (40.0-50.0); HGB 12.4 g/dL (13.5-17.5); Immature Grans % 0.3; Lymphocytes % 20.2; Mean Corpuscular Hemoglobin 30.5 pg (27.0-33.0); Mean Corpuscular Volume 89.7 fL (80-95); Mean Platelet Volume 8.5 fL (8.0-11.0); Monocytes % 12.5; Neutrophils % 63.3; Platelet Count 215 x1000/uL (130-400); RBC 4.07 m/cumm (4.50-6.00); RBC Distribution Width 14.2 % (11.8-14.1); White Blood Cell Count 7.04 k/cumm (4.4-10.8)
[2019-01-29 07:32] LABS: Anion Gap 6.9 mmol/L (3-11); BUN 12 mg/dL (7-18); CO2 29.1 mmol/L (21.0-32.0); CREATININE 0.83 mg/dL (0.70-1.30); Calcium 8.6 mg/dL (8.5-10.1); Chloride 99 mmol/L (98-107); Glucose 97 mg/dL (70-100); Magnesium 2.1 mg/dL (1.8-2.4); Potassium 4.4 mmol/L (3.5-5.1); Sodium 135 mmol/L (136-145)
[2019-01-29] MEDS: Mometasone 220 MCG 14 DOSE INHALER 1 PUFF IH (07:58)
[2019-01-29 08:00] VITALS: O2SAT 97
[2019-01-29] MEDS: Aspirin E.C. 81 MG TABEC PO (08:04)
[2019-01-29] MEDS: Ascorbic Acid 500 MG TAB 1500 MG PO (08:04)
[2019-01-29] MEDS: Omeprazole 20 MG CAPCR PO (08:04)
[2019-01-29] MEDS: valACYclovir 1,000 MG TAB 1000 MG PO (08:04)
[2019-01-29] MEDS: Lisinopril 20 MG TAB PO (08:05)
[2019-01-29] MEDS: Docusate Sodium 100 MG CAP PO (08:05)
[2019-01-29] MEDS: Magnesium Gluconate 500 MG TAB PO (08:05)
[2019-01-29] MEDS: Atorvastatin 20 MG TAB PO (08:05)
[2019-01-29] MEDS: Normal Saline Flush 10 ML SYR IVP (08:05)
[2019-01-29] MEDS: levETIRAcetam 500 MG TAB PO (08:05)
[2019-01-29] MEDS: Cetirizine 10 MG TAB PO (08:05)
[2019-01-29] MEDS: Oxybutynin 5 MG TAB PO (08:11)
--- NOTE | 2019-01-29 08:36 | PDOC.CMDIS ---
LACE Index Scoring Tool - Questions: Length of Stay (in days): 4 - 6 Acuity (Admit via E.D.?): Yes Comorbidities: Any Tumor E.D. Visits: 2 - Answers: Total Score: 11 Risk of Readmission: High Risk Care Management Discharge Reason for Hospitalization: Fever, UTI, possible healthcare associated pneumonia Discharge Plan: Andrey will return home when ready per MD, no additional services anticipated at this time. Andrey will transport home via private vehicle with his , Lauren. Patient/Family Education Needs: Review discharge instructions, discuss Ask Me Three.
[2019-01-29 11:49] VITALS: BP 126/72; PULSE 84; RESP 16; TEMP 37.2; O2SAT 97
--- NOTE | 2019-01-29 12:55 | DSE_ITS ---
Date of service: 01/29/19 Time of Service: 12:55 DS: Diagnosis Discharge Diagnosis (1) E. coli UTI: Status: Acute (2) Encephalitis: Status: Chronic (3) Hypertension: Status: Chronic (4) Constipation: Status: Acute Discharge Plan Disposition Patient Disposition: HOME Condition: Stable Discharge Details Chief Complaint: Fever Clinical Impression: HCAP (healthcare-associated pneumonia), UTI (urinary tract infection), Fever Reason For Visit: FEVER,UTI, POSSIBLE [employer]ALTHCARE ASSOCIATED PNEUMONI Admit Date/Time: 01/23/19 19:48 Admit Provider: Frank Louis Attending Provider: Frank Louis Primary Care Provider: Samara,Samara ED Provider: Abbie Barnhart Hospital Course Hospital Course: Chief Complaint: Fever HPI: 74-year-old man with a recent hospitalization due to a questionable diagnosis of encephalitis, admitted from [facility] Emergency Department on 01/23 with a diagnosis of sepsis with a urinary source. Mr. Collins has a past Medical History significant for HTN, hx Prostate Ca and obstructive Uropathy, asthma, HTN, and dyslipidemia. The patient was admitted at [facility] between 01/18 and 01/22 after initial presentation to [facility] ED with Global Aphasia and concern for acute CVA. He received Thrombolytics acutely prior to his transfer, and consideration was given for attempt at thrombectomy at [facility], but as patient's symptoms improved and his MRI returned negative, he was monitored instead. Subsequent LP was reportedly negative, and his original CTA head and neck was negative as well. An EEG was performed showing a left temporal slowing, with consideration for infectious vs. inflammatory Encephalitis as the etiology for the patient's presentation. He has been maintained on Acyclovir and prophylactic Keppra since that time. CSF studies have subsequently returned negative for bacterial pathogens, HSV 1&2, VZV, and Oligoclonal banding. Patient's neurologic deficits have mostly resolved, although with family reporting that the patient still takes a longer time to respond to questions, and occasional has trouble with word finding. Mr. Collins was brought to the ED one day after discharge from [facility] with reported fevers, initially as high as 39.6, as well as tachycardia, tachypnea, and leukocytosis. Lactate and renal function were normal. The patient's CXR was negative, but urinalysis showed evidence of positive Nitrite, LE, and Pyuria with >50 WBCs per hpf. Subsequent renal ultrasound showed no evidence of obstruction. Mr. Dave was maintained on broad spectrum coverage with Pip- Ronny, but with continued fevers through 48 hours of hospitalization. His antibiotic coverage was changed to Meropenem, and defervesced. His urine grew a pansensitive E. Coli, and he was changed to IV Cipro, but experienced another fever overnight at 38.1. This morning he reports continued improvement in his symptoms, but reports continued cough which he states started at time of admission. His Urine Culture is now showing growth of a pansensitive E.Coli, and Blood Cultures remain without growth. With change to Levofloxacin the patient has now remained afebrile for well over 24 hours, with last reported fever at 19:30 on 01/27. No other overnight events reported. Hospital Course: (1) E. coli UTI: Evidence of fevers, chills, and rigors - initially ongoing and unchanged for approximately 48 hours following admission and despite broad-spectrum coverage with Pip-Ronny. Urine is growing a pansensitive E.Coli, Blood Cultures remain with No Growth X120 hours, and initial CXR and Influenza were checked and negative. -Ongoing initial fevers may have been secondary to intermittent transient bacteremia that was not caught on blood cultures. - Patient has undergone a Lumbar Puncture recently, but without any meningeal signs on exam and no complaints of neurological symptoms. - Received 2 days of Meropenem, but with fever of 38.1 evening of 01/27. Repeat CXR negative. Has remained afebrile for well over 24 hours on Levofloxacin - plan on treatment for a total of 14 days, with a Urology follow-up given history of Prostate Ca, prior diagnosis of obstructive uropathy, and current Complicated UTI. (2) Encephalitis: Negative for infectious work-up per records. Continue Acyclovir until follow-up with neuro, and AED with Keppra given EEG findings. Symptoms appear resolved. No meningeal signs clinically. (3) Hypertension: Continue ALEJANDRO-I. (4) Constipation: Bowel sounds present and normal, and abdominal exam benign. Initiated bowel regimen with good results. (5) DVT prophylaxis: Was maintained on SC Enoxaparin Home Meds and New Rx's Prescriptions: New levofloxacin 750 mg tablet 750 mg PO Q24H Qty: 10 RF: 0 Continued omeprazole 20 mg capsule,delayed release(DR/EC) 20 mg PO DAILY RF: 0 atorvastatin 20 mg tablet 20 mg PO DAILY RF: 0 Flovent HFA 110 mcg/actuation HFA aerosol inhaler 1 puff IH BID RF: 0 calcium carbonate-vitamin D3 [Calcium 600 + D(3)] 600 mg(1,500mg) -400 unit tablet 1 tab PO DAILY RF: 0 oxybutynin chloride 5 mg tablet 5 mg PO BID PRN (Reason: bladder spasms) Qty: 180 RF: 4 lisinopril 20 MG tablet 20 mg PO DAILY RF: 0 ascorbic acid (vitamin C) [Vitamin C] 500 MG tablet,chewable 1,500 mg PO DAILY RF: 0 magnesium 250 MG tablet 500 mg PO DAILY RF: 0 montelukast [Singulair] 5 MG tablet,chewable 10 mg PO DAILY RF: 0 cetirizine [Zyrtec] 10 MG tablet,chewable 10 mg PO DAILY RF: 0 albuterol sulfate 8.5 GM HFA aerosol inhaler 2 puff Inhalation QID PRNRF: 0 fluticasone propionate 50 mcg/actuation [place],Suspension 2 spray INTRANASAL DAILY RF: 0 acetaminophen 500 mg tablet 1,000 mg PO Q8H PRN (Reason: pain) Qty: 90 RF: 3 ibuprofen 600 mg tablet 600 mg PO TID PRNQty: 90 RF: 3 aspirin 81 mg tablet,delayed release (DR/EC) 81 mg PO DAILY RF: 0 valacyclovir 1 gram Tablet 1,000 mg PO TID RF: 0 levetiracetam 500 mg Tablet 500 mg PO BID RF: 0 Discontinued ibuprofen [Motrin IB] 200 mg capsule 600 mg PO BID PRNRF: 0 Discharge Instructions Referrals: Isauro Viramontes MD [ [facility] STAFF PHYSICIAN] - 02/04/19 1:30 pm Activity:: No Strenuous Activity Equipment/Supplies:: No Equipment Needed Diet:: As Tolerated Discharge Orders Discharge Orders: Discharge Order (Routine); Ordered 01/29/19 Ordered By: Sundar Hamlin DS: Summary Status at Discharge Functional status at discharge: independent ambulation Overall status at discharge: patient is back to baseline Mental Status: mental status grossly normal Speech and Movement: speech and movement normal Mood: congruent mood Affect: normal affect Exam Narrative Exam Narrative: General: Patient appears more comfortable and no longer acutely ill, AAOX3. Neck: Supple CV: Regular, nontachycardic, S1S2, No rubs, murmurs, or gallops. Pulmonary: Clear to auscultation bilaterally, no crackles, wheezing, or rhonchi Abdomen: + Bowel Sounds, soft, nontender, nondistended Vascular: +1-2 b/l lower extremity edema, reported as chronic Psych: Normal mood and affect. Psych Mental Status: mental status grossly normal Speech and Movement: speech and movement normal Mood: congruent mood Affect: normal affect DS: Data Vitals/I&O Vitals and I&O: Vital Signs Temperature 37.2 C 01/29/19 11:49 Temperature Source Skin 01/29/19 11:49 Pulse 84 01/29/19 11:49 Pulse Rhythm Regular 01/29/19 11:58 Respiratory Rate 16 01/29/19 11:49 Respiratory Effort Non-Labored 01/29/19 11:58 Respiratory Depth Normal 01/29/19 11:58 Respiratory Pattern Normal 01/29/19 11:58 Blood Pressure 126/72 01/29/19 11:49 Blood Pressure Position Supine 01/23/19 16:28 Pulse Oximetry 97 01/29/19 11:49 Oxygen Delivery Method Room Air 01/29/19 11:49 Oxygen Flow Rate 0 01/29/19 11:49 Pain Level 0 01/29/19 11:49 Comment 01/28/19 08:19 Intake & Output 01/28/19 01/29/19 01/29/19 23:59 11:59 23:59 Intake Total 1030 / 1900 490 / 490 Output Total 1550 / 3500 1700 / 2000 300 / 2000 Balance -520 / -1600 -1210 / -1510 -300 / -1510 Weight 78.6 kg Intake: IV 150 / 150 Oral 880 / 1750 490 / 490 Output: Urine 1550 / 3500 1700 / 2000 300 / 2000 Other: Urine Color Yellow Yellow Yellow Urine Appearance Clear Clear Clear Urine Odor Normal Normal Stool Size Moderate Moderate Stool Characteristics Soft Soft Formed Formed Brown Brown Voiding Methods Toilet Toilet Data Completed and Pending Completed studies during hospitalization [Text1]: Exam(s) 01/23 a RAD:XR chest 2V PA & lateral EXAM: XR CHEST 2V PA LATERAL INDICATION: fever, weakness, r/o pneumonia. COMPARISON: XR CHEST 2V PA LATERAL from 01/18/2019 TECHNIQUE: 2D digital imaging was performed. FINDINGS: The heart is mildly enlarged. There is mild prominence of pulmonary interstitial markings, grossly unchanged from 01/18 with and apparent poor inspiration on the PA view. No focal consolidation seen. No pleural effusion seen. IMPRESSION: No evidence of acute process. ------- Exam(s) 01/24 a US:US renal EXAM: US RENAL CLINICAL HISTORY: UTI, history of Prostate cancer, rule out obstruct. TECHNIQUE: Ultrasound performed using standard protocol. COMPARISON: US OR ANESTHESIA from 09/24/2018 FINDINGS: The examination is somewhat technically limited regarding visualization of the kidneys. No gross hydronephrosis. No gross nephrolithiasis. Urinary bladder contains 42 cc of urine and the patient was unable to void. Ureteral jets not visualized. IMPRESSION: No evidence of urinary tract obstruction. --------- Exam(s) 01/28 a RAD:XR chest 2V PA & lateral EXAM: XR CHEST 2V PA LATERAL CLINICAL HISTORY: Persistent fever. TECHNIQUE: 2D digital imaging was performed. COMPARISON: XR CHEST 2V PA LATERAL from 01/23/2019 FINDINGS: LUNGS: Clear. No pleural abnormality seen. HEART: Normal. MEDIASTINUM: Normal. OTHER FINDINGS:Normal. IMPRESSION: No acute pulmonary findings. Labs on day of discharge: Labs from last 24 hours 01/29/19 01/29/19 06:05 06:05 WBC 7.04 RBC 4.07 L Hgb 12.4 L Hct 36.5 L MCV 89.7 MCH 30.5 MCHC 34.0 RDW 14.2 H Plt Count 215 MPV 8.5 Immature Gran % 0.3 Neutrophils % 63.3 Lymphocytes % 20.2 Monocytes % 12.5 Eosinophils % 3.4 Basophils % 0.3 Absolute Neutrophils 4.46 Absolute Lymphocytes 1.42 Absolute Monocytes 0.88 H Absolute Eosinophils 0.24 Absolute Basophils 0.02 Sodium 135 L Potassium 4.4 Chloride 99 Carbon Dioxide 29.1 Anion Gap 6.9 BUN 12 Creatinine 0.83 Estimated GFR/1.73 m2 >= 60.00 Glucose 97 Calcium 8.6 Magnesium 2.1 Blood Culture ( Age => 10 Yrs) Final 01/28/19-192 NO GROWTH 120 HOURS Urine Culture Final 01/25/19-925 Day 1 Result ISOLATES BELOW ISOLATE 1 COLONY COUNT >100,000 COLONIES/ML ISOLATE 1 APPEARANCE Gram Negative Griffin ISOLATE 1 ACTION SUSCEPTIBILITY TO FOLLOW Day 2 Result ISOLATES BELOW ISOLATE 1 COLONY COUNT >100,000 COLONIES/ML ISOLATE 1 APPEARANCE Gram Negative Griffin ISOLATE 2 COLONY COUNT <10,000 COLONIES/ML ISOLATE 2 APPEARANCE Mixed Gram Positive Bibi Organism 1 Escherichia coli COLONY COUNT >100,000 COLONIES/ML Organism 2 GRAM POSITIVE BIBI,MIXED COLONY COUNT <10,000 COLONIES/ML Esch coli RESULT Ampicillin S Ampicillin/Sulbactam S Cefazolin S Ceftazidime S CEFTRIAXONE S Ciprofloxacin S Gentamicin S Nitrofurantoin S Imipenem S Levofloxacin S Tobramycin S Trimethoprim/Sulfamethoxazole S Piperacillin/Tazobactam S -------- Rapid Influenza A & B Final 01/23/19-181 RESULT NEGATIVE FOR FLU A AND B ANTIGENS. 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 STATES IT WAS FOUND OUT DURING THE TURP PROCEDURE, AND IT'S UNDER ACTIVE SURVIELLENCE Rhinitis (Chronic 01/26/14) Tinnitus Tremor Vertigo (Acute) onset per pt New Year's day 2019 Surgical History Colonoscopy - MAC (05/09/17) Hx of transurethral resection of prostate (Acute) S/P tonsillectomy (Acute) Status post appendectomy (Acute) Status post bilateral inguinal hernia repair (Acute) Reports bilateral inguinal hernia repair x2 Status post total left knee replacement (Chronic) Patient estimates surgery approximately 2005 Dr. Mcintyre Status post trigger finger release (Acute) Left hand Family History Mother Cholecystolithiasis Father , from either [place] or [place] Unsure of blood clot location Happened following prostate surgery No problems noted. Brother Heart disease S/P stents Stroke Sister , Had pacemaker No problems noted. Social History Smoking/Tobacco Use Status: Former Tobacco Use Alcohol Intake: current Alcohol Intake frequency: 0-2 drinks per day Drug use: Never Do you feel safe at home: Yes Do you feel safe in your relationship?: Yes
== END 2019-01-29 14:34 | disposition home or self-care (01) | DRG 689 ==
LOC: ER 20:31 → MS 21:07
PROVIDERS: Internal Medicine; Admitting Provider Internal Medicine; Emergency Provider Physician Assistant; Visit Provider Internal Medicine
DX: N39.0 Urinary tract infection, site not specified (principal); G04.90 Encephalitis and encephalomyelitis, unspecified; A41.9 Sepsis, unspecified organism; J18.9 Pneumonia, unspecified organism; B96.20 Unspecified Escherichia coli [E. coli] as the cause of diseases classified elsewhere; I10 Essential (primary) hypertension; J45.909 Unspecified asthma, uncomplicated; E78.5 Hyperlipidemia, unspecified; K59.00 Constipation, unspecified; Y95 Nosocomial condition; N32.81 Overactive bladder; Z85.46 Personal history of malignant neoplasm of prostate
CPT/HCPCS: 36415; 76770; 80048; 80053; 84145; 85027; 87040; 87077; 87449; 87880; 93005; 94640; 96361; 96365; 96367; 99223; 99232; 99239; 99285; J1650; 71046; 81003; 81015; 83605; 83735; 84484; 85025; 86140; 87081; 87086; 87186; 93010; J0744; J1956; J2543; J3370

== ENCOUNTER → 2019-02-04 13:31 | Outpatient (BNVA) | payer MEDICARE, OTHER, SELFPAY | PROVIDERS: Visit Provider Urology | DX: N39.0 Urinary tract infection, site not specified (principal); B96.20 Unspecified Escherichia coli [E. coli] as the cause of diseases classified elsewhere | CPT/HCPCS: 99213 ==

== ENCOUNTER 2019-02-12 15:06 | Outpatient (REF) | payer MEDICARE, OTHER, SELFPAY ==
[2019-02-12 15:21] LABS: Bilirubin Negative (Negative); Blood Negative (Negative); Clarity Clear (Clear); Glucose Negative (Negative); Ketones Negative (Negative); Leukocyte Esterase Negative (Negative); Nitrite Negative (Negative); Specific Gravity 1.015 (1.005-1.025); Urobilinogen 0.2 EU/dL (Up TO 0.2); pH 6.5 (5-8)
== END 2019-02-12 15:26 ==
LOC: LBN 15:06
PROVIDERS: Visit Provider Urology
DX: N39.0 Urinary tract infection, site not specified (principal)
CPT/HCPCS: 81003

== ENCOUNTER → 2019-03-20 12:24 | Outpatient (BNVA) | payer MEDICARE, OTHER, SELFPAY | PROVIDERS: Referring Provider Family Medicine; Visit Provider Psychiatry & Neurology Neurology | DX: G40.109 Localization-related (focal) (partial) symptomatic epilepsy and epileptic syndromes with simple partial seizures, not intractable, without status epilepticus (principal) | CPT/HCPCS: 99205; 99214 ==

== ENCOUNTER 2019-05-26 11:51 | Outpatient (CLI) | payer MEDICARE, OTHER, SELFPAY | END 2019-05-26 12:11 | PROVIDERS: Visit Provider Urology | DX: C61 Malignant neoplasm of prostate (principal) | CPT/HCPCS: 36415; 84153 ==

== ENCOUNTER → 2019-05-30 13:10 | Outpatient (BNVA) | payer MEDICARE, OTHER, SELFPAY | PROVIDERS: Visit Provider Urology | DX: C61 Malignant neoplasm of prostate (principal) | CPT/HCPCS: 99213 ==

== ENCOUNTER 2019-07-08 08:47 | Outpatient (CLI) | payer MEDICARE, OTHER, SELFPAY ==
[2019-07-08 10:01] LABS: HCT 41.4 % (40.0-50.0); HGB 13.9 g/dL (13.5-17.5); Mean Corp. HGB Concentration 33.6 g/dL (32.0-36.0); Mean Corpuscular Hemoglobin 30.7 pg (27.0-33.0); Mean Corpuscular Volume 91.4 fL (80-95); Mean Platelet Volume 9.3 fL (8.0-11.0); Platelet Count 179 x1000/uL (130-400); RBC 4.53 m/cumm (4.50-6.00); RBC Distribution Width 13.4 % (11.8-14.1); White Blood Cell Count 5.24 k/cumm (4.4-10.8)
[2019-07-08 10:33] LABS: ALT 24 U/L (16-63); AST 18 U/L (15-37); Albumin 3.9 g/dL (3.4-5.0); Alkaline Phosphatase 73 U/L (46-116); Anion Gap 4.7 mmol/L (3-11); BUN 14 mg/dL (7-18); Bilirubin, Total 0.5 mg/dL (0.2-1.0); CO2 31.3 mmol/L (21.0-32.0); CREATININE 0.72 mg/dL (0.70-1.30); Calcium 8.8 mg/dL (8.5-10.1); Calculated LDL 46 mg/dL (<100); Chloride 102 mmol/L (98-107); Cholesterol 88 mg/dL (<200); Glucose 92 mg/dL (74-106); HDL Cholesterol 31 mg/dL (40-60); Potassium 5.1 mmol/L (3.5-5.1); Sodium 138 mmol/L (136-145); Total Protein 6.5 g/dL (6.4-8.2); Triglyceride 55 mg/dL (<150)
[2019-07-09 10:48] LABS: PSA, Diagnostic 0.7 ng/mL (0.0-6.5)
== END 2019-07-08 09:07 ==
PROVIDERS: PCP Family Medicine; Visit Provider Family Medicine
DX: I10 Essential (primary) hypertension (principal); E78.5 Hyperlipidemia, unspecified; Z85.46 Personal history of malignant neoplasm of prostate
CPT/HCPCS: 36415; 80053; 80061; 85027; 84153

== ENCOUNTER 2019-09-25 12:27 | Outpatient (CLI) | payer MEDICARE, OTHER, SELFPAY ==
--- NOTE | 2019-09-25 11:30 | DI.RAD_ITS ---
EXAM: XR KNEE RT 2V AP,LAT INDICATION: R TKA. COMPARISON: CR XR knee RT 1V from 10/09/2018 TECHNIQUE: 2D digital imaging was performed. FINDINGS: There has been no change in the alignment of the total knee prosthesis. No abnormal bony lucencies are seen. A joint effusion and anterior soft tissue swelling are present. DATA REPOSITORY: RADIATION DOSE DELIVERED:
== END 2019-09-25 12:47 ==
PROVIDERS: PCP Family Medicine; Referring Provider Family Medicine; Visit Provider Student in an Organized Health Care Education/Training Program
DX: Z96.651 Presence of right artificial knee joint (principal); M25.461 Effusion, right knee; M79.9 Soft tissue disorder, unspecified; Z47.1 Aftercare following joint replacement surgery; I10 Essential (primary) hypertension
CPT/HCPCS: 99213; 73560

== ENCOUNTER 2019-11-18 03:31 | Outpatient (CLI) | payer MEDICARE, OTHER, SELFPAY ==
[2019-11-19 09:51] LABS: PSA, Diagnostic 0.7 ng/mL (0.0-6.5)
== END 2019-11-18 03:51 ==
PROVIDERS: PCP Family Medicine; Visit Provider Urology
DX: C61 Malignant neoplasm of prostate (principal)
CPT/HCPCS: 36415; 84153

== ENCOUNTER → 2019-11-28 12:51 | Outpatient (BNVA) | payer MEDICARE, OTHER, SELFPAY | PROVIDERS: PCP Family Medicine; Visit Provider Urology | DX: C61 Malignant neoplasm of prostate (principal); Z87.440 Personal history of urinary (tract) infections; I10 Essential (primary) hypertension; R35.0 Frequency of micturition | CPT/HCPCS: 81003; 99213 ==

== ENCOUNTER → 2020-03-18 08:57 | Outpatient (BNVA) | payer MEDICARE, OTHER, SELFPAY | PROVIDERS: PCP Family Medicine; Visit Provider Psychiatry & Neurology Neurology | DX: G40.109 Localization-related (focal) (partial) symptomatic epilepsy and epileptic syndromes with simple partial seizures, not intractable, without status epilepticus (principal); I67.9 Cerebrovascular disease, unspecified; Z78.9 Other specified health status | CPT/HCPCS: 99213; 99442 ==

== ENCOUNTER 2020-05-19 04:23 | Outpatient (CLI) | payer MEDICARE, OTHER, SELFPAY ==
[2020-05-19 22:28] LABS: PSA, Diagnostic 0.6 ng/mL (0.0-6.5)
== END 2020-05-19 04:43 ==
PROVIDERS: PCP Family Medicine; Visit Provider Urology
DX: C61 Malignant neoplasm of prostate (principal)
CPT/HCPCS: 36415; 84153

== ENCOUNTER → 2020-06-01 10:27 | Outpatient (BNVA) | payer MEDICARE, OTHER, SELFPAY | PROVIDERS: PCP Family Medicine; Referring Provider Family Medicine; Visit Provider Urology | DX: C61 Malignant neoplasm of prostate (principal); N32.81 Overactive bladder | CPT/HCPCS: 99213; 99214 ==

== ENCOUNTER → 2020-06-04 11:25 | Outpatient (BNVA) | payer MEDICARE, OTHER, SELFPAY | PROVIDERS: PCP Family Medicine; Referring Provider Family Medicine; Visit Provider Physical Therapy Assistant | DX: Z12.11 Encounter for screening for malignant neoplasm of colon (principal); Z86.010 Personal history of colon polyps; I10 Essential (primary) hypertension ==

== ENCOUNTER 2020-06-10 02:28 | Outpatient (CLI) | payer MEDICARE, OTHER, SELFPAY ==
[2020-06-12 09:04] LABS: COVID-19 RT-PCR UVMMC Result Negative (Negative)
== END 2020-06-10 02:29 | disposition home or self-care (01) ==
PROVIDERS: PCP Family Medicine; Visit Provider Surgery
DX: Z20.822 Contact with and (suspected) exposure to COVID-19 (principal); Z01.818 Encounter for other preprocedural examination
CPT/HCPCS: U0003; U0005

== ENCOUNTER 2020-06-14 11:13 | Day surgery (SDC) | payer MEDICARE, OTHER, SELFPAY ==
--- NOTE | 2020-06-14 07:06 | W.COLOREPORT ---
Date of service: 06/14/20 Time of Service: 13:23 Colonoscopy Report Date of procedure: 06/14/20 Pre-op diagnosis general: Hx of colon polyps Post-op diagnosis procedure note: same (polyps and diverticulosis) Procedure: Colonoscopy with polypectomy Surgeon: Ro Sharpe Anesthesia proc note operative: other (General/ASA 2/Shravan Chun CRNA) Estimated blood loss (mL): 3 Pathology: other (sigmoid polyps x2, rectal polyp) Complications: None Disposition: same day Indications: The patient is here for Colonoscopy pre-op.His last screening was in 2018, which was remarkable for sessile serrated adenomatous polyps. He has no family history of colon cancer. He has not had any bowel habit changes. -Discussed colonoscopy bowel prep as well as the procedure. Discussed possible complications of the procedure to include bleeding, pain, perforation, missed small lesion/polyp, sore throat, aspiration and adverse reaction to the medications. Questions were answered to patient?s satisfaction. No guarantees were implied or given. I spent 30 minutes in reviewing the record, seeing the patient, providing patient education, answering patient's questions and documenting in the medical record. He will hold his vitamins and aspirin x 5 days prior to his procedure. P// Colonoscopy under sedation Prep: Miralax/Dulcolax Procedure Start Time: 13:23 Procedure End Time: 13:51 Retraction Time: 14 minutes Findings: Severe diverticulosis of the descending and sigmoid colon 3 small polyp Procedure Description: After informed consent was obtained the patient was taken to the procedure room and placed in a left decubitous position. Monitors were applied and a time out was done. The patients name, date of , procedure, allergies to medications and metal in their body was reviewed. The patient was then sedated. Once sedated and comfortable a rectal exam was done. External exam was normal. Internal exam revealed a normal sphincter tone and no palpable masses. The prostate felt smooth. The scope was then introduced and retro-flexed. No internal hemorrhoids, polyps or masses were identified on retro-flexion. The scope was then advanced to the cecum without difficulty. The ileocecal vlave and appendiceal orifice were identified. The prep was adequate. The scope was then slowly retracted over 14 minutes back into the rectum. Polyps were removed with cold forceps in the sigmoid colon x2 and rectum x1. There was severe diverticulosis of the descending colon and sigmoid colon noted. The scope was removed and the patient was woken up and taken back to Same day surgery in stable condition. The patient tolerated the procedure well and there were no immediate complications. Follow up: The patient should follow up in 5 years unless they develop changes in bowel habits or other new gastrointestinal complaints.
--- NOTE | 2020-06-14 07:06 | W.PM.DSUDISC ---
Discharge Plan Disposition Patient Disposition: HOME Condition: Good Discharge Details Reason For Visit: Colonoscopy Attending Provider: Ro Sharpe Primary Care Provider: Catia Means Home Meds and New Rx's Prescriptions: Continued omeprazole 20 mg capsule,delayed release(DR/EC) 20 mg PO DAILY RF: 0 atorvastatin 20 mg tablet 20 mg PO DAILY RF: 0 Flovent HFA 110 mcg/actuation HFA aerosol inhaler 1 puff IH BID RF: 0 calcium carbonate-vitamin D3 [Calcium 600 + D(3)] 600 mg(1,500mg) -400 unit tablet 1 tab PO DAILY RF: 0 Systane Balance 0.6 % drops 1 drp OP DAILY PRNRF: 0 Osteo Bi-Flex Triple Strength 750 mg-644 mg- 30 mg-1 mg tablet 1 tab PO BID RF: 0 ibuprofen 600 mg tablet 400 mg PO BID PRNRF: 0 tolterodine [Detrol LA] 4 mg capsule,extended release 24hr 4 mg PO Q24H Qty: 90 RF: 4 lisinopril 20 MG tablet 20 mg PO DAILY RF: 0 ascorbic acid (vitamin C) [Vitamin C] 500 MG tablet,chewable 1,500 mg PO DAILY RF: 0 magnesium 250 MG tablet 500 mg PO DAILY RF: 0 levetiracetam 500 mg tablet 500 mg PO BID Qty: 180 RF: 3 loratadine [Allergy Relief (loratadine)] 10 mg tablet 10 mg PO DAILY RF: 0 albuterol sulfate 8.5 GM HFA aerosol inhaler 2 puff Inhalation QID PRNRF: 0 fluticasone propionate 50 mcg/actuation [place],Suspension 2 spray INTRANASAL DAILY RF: 0 aspirin 81 mg tablet,delayed release (DR/EC) 81 mg PO DAILY RF: 0 Discontinued polyethylene glycol 3350 17 gram/dose powder 238 g PO ONCE Qty: 238 RF: 0 bisacodyl [Dulcolax (bisacodyl)] 5 mg tablet,delayed release (DR/EC) 5 mg PO ONCE Qty: 4 RF: 0 Discharge Instructions Instructions: Diverticulosis (DC), Colorectal Polyps (DC) Additional Instructions: Findings: 3 small polyps Diverticulosis Follow up: 3-5 years Please call if you develop: fevers >101.5 Nausea or Vomiting Abdominal pain that is not transient DAY SURGERY UNIT POST ENDOSCOPY INSTRUCTIONS 1. Because there will be medication in your system for the next 24 hours, you may feel a little sleepy. Your coordination will be affected. Therefore: a. Do not drive or operate dangerous equipment for 24 hours. b. Do not drink alcohol beverages for 24 hours (not even beer). c. Plan to go home and rest for the day. 2. Generally there are no restrictions on your activity after a day or so has gone by, but you may feel a bit fatigued for a few days. 3 After you arrive home you may have a light meal and return to a normal diet as you can tolerate it without feeling sick to your stomach. 4. After surgery, you may feel pain or discomfort. This should be only transient, but if it persists please contact your doctor. 5. If there are any questions regarding the findings of your procedure, please feel free to contact your doctor. 6. If you are unable to contact your doctor with a problem, contact the hospital at [phone]. 7. Continue all your regular medications unless directed otherwise. I understand the above instructions and have no questions. Signature of Patient or Responsible Adult Escort Date/Time Name of Responsible Adult Escort Signature of Nurse Date/Time Activity:: Activity as Tolerated Diet:: High Fiber diet Discharge Orders Discharge Orders: Discharge Order (Routine); Ordered 06/14/20 Ordered By: Ro Sharpe
[2020-06-14 11:26] VITALS: BP 142/89; PULSE 78; TEMP 36.8; O2SAT 99
[2020-06-14] MEDS: Lactated Ringers 1,000 ML 80 ML IV (11:37)
--- NOTE | 2020-06-14 13:50 | BOWEL_PTH ---
PATIENT: Andrey Collins LOC: [facility] U#:[id number] AGE/SX: 75/M ROOM: RE06/14/[address]: Ro Sharpe MD : 1945 BED: DIS: 06/14/2020 SPEC #: [id number] RECD: 06/14/20 17:35 STATUS: DAVID REQ #: [id number] MEGAN: 06/14/20 13:[address]: Ro Sharpe DEPT: Surgical Specimen RECD BY: Eleanor Pearson ENTERED: 06/14/20 17:36 SP TYPE: Bowel OTHR DR: Catia Means Tissues: 1 - BIOPSY BOWEL 2 - BIOPSY BOWEL Procedures: GROSS AND MICRO LEVEL 4 Comments: [id number]
[2020-06-14 14:30] VITALS: BP 141/82; PULSE 65; RESP 18; TEMP 36.6; O2SAT 99
== END 2020-06-14 14:52 | disposition home or self-care (01) ==
LOC: SUR 11:13
PROVIDERS: PCP Family Medicine; Visit Provider Surgery
PROC: 0DJD8ZZ Inspection of Lower Intestinal Tract, Via Natural or Artificial Opening Endoscopic (ICD-10-PCS; CPT 45378; principal; 2020-06-14 12:00)
DX: D12.5 Benign neoplasm of sigmoid colon (principal); Z12.11 Encounter for screening for malignant neoplasm of colon; Z86.010 Personal history of colon polyps; K57.30 Diverticulosis of large intestine without perforation or abscess without bleeding
CPT/HCPCS: 45380; 88305; J2001

== ENCOUNTER 2020-07-19 10:40 | Outpatient (REF) | payer MEDICARE, OTHER, SELFPAY ==
[2020-07-19 18:58] LABS: HCT 44.1 % (40.0-50.0); MCH 31.8 pg (27.0-33.0); MCV 93.4 fL (80-95); Platelet Count 186 10^3/uL (130-400); RBC 4.72 10^6/uL (4.36-5.78); RDW 12.9 % (11.8-14.1)
[2020-07-19 19:14] LABS: Hemoglobin A1C 5.5 % (<5.7)
[2020-07-19 19:35] LABS: Anion Gap 9.2 mmol/L (3-11); BUN 10 mg/dL (7-18); CO2 28.8 mmol/L (21.0-32.0); CREATININE 0.8 mg/dL (0.70-1.30); Calcium 8.8 mg/dL (8.5-10.1); Chloride 100 mmol/L (98-107); Glucose 85 mg/dL (74-106); Sodium 138 mmol/L (136-145); TSH (W/Ref FT4) 1.74 uIU/mL (0.36-3.74)
[2020-07-20 17:35] LABS: PSA, Diagnostic 0.7 ng/mL (0.0-6.5)
== END 2020-07-19 10:41 | disposition home or self-care (01) ==
LOC: NCHCN 10:40
PROVIDERS: Urology; PCP Family Medicine; Visit Provider Family Medicine
DX: I10 Essential (primary) hypertension (principal); E78.5 Hyperlipidemia, unspecified; R25.1 Tremor, unspecified; Z85.46 Personal history of malignant neoplasm of prostate; Z79.899 Other long term (current) drug therapy; R73.9 Hyperglycemia, unspecified
CPT/HCPCS: 80048; 85027; 83036; 84153; 84443

== ENCOUNTER 2020-11-18 05:24 | Outpatient (CLI) | payer MEDICARE, OTHER, SELFPAY ==
[2020-11-18 21:34] LABS: PSA, Diagnostic 0.6 ng/mL (0.0-6.5)
== END 2020-11-18 05:25 | disposition home or self-care (01) ==
LOC: LBO 11-19 05:27
PROVIDERS: PCP Family Medicine; Visit Provider Urology
DX: C61 Malignant neoplasm of prostate (principal)
CPT/HCPCS: 36415; 84153

== ENCOUNTER → 2020-12-03 12:56 | Outpatient (BNVA) | payer MEDICARE, OTHER, SELFPAY | PROVIDERS: PCP Family Medicine; Referring Provider Family Medicine; Visit Provider Urology | DX: C61 Malignant neoplasm of prostate (principal); N32.81 Overactive bladder; Z79.899 Other long term (current) drug therapy | CPT/HCPCS: 99213 ==

== ENCOUNTER 2021-01-01 21:41 | Emergency (ER) | payer MEDICARE, OTHER, SELFPAY ==
[2021-01-01 21:59] VITALS: BP 145/78; PULSE 73; RESP 24; TEMP 36.7; O2SAT 97
--- NOTE | 2021-01-01 22:00 | RT.EKG_ITS ---
APPROVED REPORT Exam: Resting ECG Reason for Exam: speech change Patient Location: E HR:71 bpm ECG Measurements Heart Rate 71 AXIS NJ 175 P 52 QRSd 98 QRS 27 QT 403 T 36 QTc 440 Conclusion Sinus rhythm...normal P axis, V-rate 60- 99 Physician: no stemi, unchanged
--- NOTE | 2021-01-01 22:15 | DI.CT_ITS ---
Exam(s) CT BRAIN NECK CTA EXAM: CT BRAIN NECK CTA CLINICAL HISTORY: Transient garbled speech. TECHNIQUE: Imaging Protocol: Axial CT angiography was performed with multi-slice acquisition and mu lti-planar and/or 3D reconstructions. CONTRAST MATERIAL: Intravenous: Omnipaque 350 Contrast volume:structured data in ml COMPARISON: No exams were available for comparison FINDINGS: CT Head W/O and W contrast: Mildly limited by motion. Streak artifacts adjacent to the frontal portions of the skull. Ventricles and Extra axial spaces: Normal in size and morphology for the patient's age. Hemorrhage: None. Cerebral parenchyma: Normal. Midline shift: None. Brainstem/Cerebellum: Normal. Calvarium: Normal. Visualized Paranasal sinuses/Mastoids: Small mucous retention cysts maxillary sinuses. Soft Tissues: Unremarkable. Enhancement: Normal. CTA Brain W: Internal Carotid Arteries: Petrous: Normal. Cavernous: Normal. Cerebral: Normal. Middle Cerebral Arteries: Right: No aneurysm, occlusion or significant stenosis. Left: No aneurysm, occlusion or significant stenosis. Anterior Cerebral Arteries: Right: No aneurysm, occlusion or significant stenosis. Left: No aneurysm, occlusion or significant stenosis. Posterior cerebral Arteries: Right: No aneurysm, occlusion or significant stenosis. Left: No aneurysm, occlusion or significant stenosis. Vertebral Arteries: Right: No aneurysm, occlusion or significant stenosis. Left: No aneurysm, occlusion or significant stenosis. Basilar Artery: No aneurysm, occlusion or significant stenosis. CTA Neck W: Common Carotid: Right: No aneurysm, occlusion or significant stenosis. Left: No aneurysm, occlusion or significant stenosis. External Carotid: Right: No aneurysm, occlusion or significant stenosis. Left: No aneurysm, occlusion or significant stenosis. Internal Carotid: Right: No aneurysm, occlusion or significant stenosis. Left: No aneurysm, occlusion or significant stenosis. Vertebral Artery: Right: No aneurysm, occlusion or significant stenosis. Left: No aneurysm, occlusion or significant stenosis. Lung Apices: Normal. Bones: Degenerative changes in the cervical spine. Soft Tissues: Normal. IMPRESSION: 1. Normal CTA examination of the [place]. 2. Head CT: No acute abnormality. Mild atrophy. 3. Normal CTA examination of the neck. RADIATION DOSE DELIVERED: 3,164.51mGy.cm Total DLP DATA REPOSITORY: All CT scans at this facility are submitted to the National Radiology Data Registry (NRDR) Dose Index Registry (DIR) with the [employer] (ACR). RADIATION OPTIMIZATION: All CT scans at this facility use at least one of these dose optimization te chniques: automated exposure control; mA and/or kV adjustment per patient size (includes targeted exa ms where dose is matched to clinical indication); or iterative reconstruction.
[2021-01-01 22:32] LABS: BE (Venous) 3 mmol/L (-2-3); HCO3 (Venous) 28 mmol/L (23-28); O2 Sat (Venous) 85 %; TCO2 (Venous) 25 mmol/L (24-29); pCO2 (Venous) 47 mmHg (41-51); pH (Venous) 7.39 (7.31-7.41); pO2 (Venous) 52 mmHg
[2021-01-01 22:34] LABS: Abs Immature Grans 0.03 10^3/uL (0.0-0.06); Absolute Basophil Count 0.04 10^3/uL (0.0-0.2); Absolute Eosinophil Count 0.18 10^3/uL (0.0-0.7); Absolute Lymphocyte Count 2.09 10^3/uL (1.2-3.4); Absolute Monocyte Count 0.73 10^3/uL (0.1-0.8); Absolute Neutrophil Count 4.64 10^3/uL (1.2-6.7); Basophils % 0.5; Eosinophils % 2.3; HCT 39.2 % (40.0-50.0); Immature Grans % 0.4; Lymphocytes % 27.1; MCH 30.8 pg (27.0-33.0); MCHC 33.2 % (32.0-36.0); MCV 92.9 fL (80-95); MPV 8.8 fL (8.0-11.0); Monocytes % 9.5; Neutrophils % 60.2; Nucleated RBC 0 %; Platelet Count 159 10^3/uL (130-400); RBC 4.22 10^6/uL (4.36-5.78); RDW 13.1 % (11.8-14.1); RDW-SD 44.9 fL; WBC 7.71 10^3/uL (4.4-10.8)
[2021-01-01 22:48] LABS: Ammonia 44 umol/L (11-32)
--- NOTE | 2021-01-01 22:50 | ED.GENADUL_ITS ---
Discharge Plan Disposition Patient Disposition: HOME Condition: Good Discharge Details Clinical Impression: Alteration in speech Primary Care Provider: Catia Means ED Provider: Alfredo Rodriguez Home Meds and New Rx's Prescriptions: Continued omeprazole 20 mg capsule,delayed release(DR/EC) 20 mg PO DAILY RF: 0 atorvastatin 20 mg tablet 20 mg PO HS RF: 0 Flovent HFA 110 mcg/actuation HFA aerosol inhaler 1 puff IH BID RF: 0 calcium carbonate-vitamin D3 [Calcium 600 + D(3)] 600 mg(1,500mg) -400 unit tablet 1 tab PO DAILY RF: 0 Systane Balance 0.6 % drops 1 drp OP DAILY PRNRF: 0 Osteo Bi-Flex Triple Strength 750 mg-644 mg- 30 mg-1 mg tablet 1 tab PO BID RF: 0 ibuprofen 600 mg tablet 400 mg PO BID PRNRF: 0 lisinopril 20 MG tablet 20 mg PO DAILY RF: 0 ascorbic acid (vitamin C) [Vitamin C] 500 MG tablet,chewable 1,500 mg PO DAILY RF: 0 magnesium 250 MG tablet 500 mg PO DAILY RF: 0 levetiracetam 500 mg tablet 500 mg PO BID Qty: 180 RF: 3 loratadine [Allergy Relief (loratadine)] 10 mg tablet 10 mg PO DAILY RF: 0 solifenacin [Vesicare] 10 mg tablet 10 mg PO DAILY Qty: 30 RF: 2 albuterol sulfate 8.5 GM HFA aerosol inhaler 2 puff Inhalation QID PRNRF: 0 fluticasone propionate 50 mcg/actuation [place],Suspension 2 spray INTRANASAL DAILY RF: 0 aspirin 81 mg tablet,delayed release (DR/EC) 81 mg PO DAILY RF: 0 Discharge Instructions Instructions: Transient Ischemic Attack (ED) Additional Instructions: At this time the CAT scan of your head is normal and reassuring. Your laboratory work-up is otherwise normal and reassuring. You do have a slight elevation in your ammonia level. This may be your normal baseline, and so I would like to have your ammonia level rechecked later this week. Please follow- up closely with your primary care provider for reassessment of this. Please drink plenty of fluids every day and try to cut down on your regular alcohol intake. Please increase your aspirin to a full dose of 325 mg daily until you are reassessed by your primary care provider. Make sure to take this with food. If you notice any worsening of your symptoms, or any new symptoms such as vomiting, diarrhea, fever, chills, shortness of breath, chest pain, numbness, weakness, or fainting , please return immediately to the emergency department for reevaluation. Please follow up with your primary care provider as soon as possible for reassessment and reevaluation. As always, it was a pleasure participating in your medical care today. Referrals: Catia Means MD [Primary Care Provider] - Medical Decision Making This is a 75-year-old male with past medical history of asthma, hypertension, previous suspected stroke for which she received thrombolytics in 2019, seizures on Keppra, high cholesterol, who presents today for evaluation of garbled speech. At 9 PM roughly 45 minutes prior to arrival the patient had an episode of garbled speech while on the phone with his son. was there and witnessed the event. He was brought to the ER shortly thereafter. Upon arrival to the ER his symptoms had resolved. No new medications, no recent falls or tr auma. does state that he was recently out at his [place] with his friends, but is otherwise been doing well without any changes. She does question whether or not he has been drinking enough fluids. Other than that no other complaints. and patient state that these symptoms were completely dissimilar from when he had his previous episode in 2019. He has not on any anticoagulants at this time. He has been taking his seizure medications as directed. He does take a daily 81 mg aspirin. No other complaints at this time. No other modifying factors. Currently he denies any headache, chest pain, shortness of breath, numbness, tingling, weakness or confusion. Of note the patient's does state that he does occasionally get confused, states that this is a little bit different than that. Abnormality physical exam demonstrates no focal neurologic deficits, no confusion, no other abnormalities. Differential at this time includes transient TIA, atypical focal seizure, or other abnormality. We will continue to monitor, gently rehydrate and reassess. EKG shows no evidence of STEMI or significant abnormality. 12 AM Laboratory work-up is returned relatively unremarkable. Patient's ammonia level is minimally elevated at 44, which may be the patient's baseline from his chronic daily alcohol use. Patient's neurologic exam remains normal. Urinalysis negative, CT/CTA negative for acute process. Uncertain as to what the exact etiology or cause of the patient's symptoms were. does state that the patient did drink some beer tonight, and that may have been a component of it. The patient's episode of garbled speech only lasted a few seconds to a minute, and resolved on its own, so symptoms appear unlikely to be related to a TIA or stroke. The slightly elevated ammonia may be a causative component but I feel this is less likely. We will place an outpatient lab order for an ammonia redraw later this week. Lab slip has been given to the patient. Recommend close follow-up with PCP in regards to this. Patient's ABCD 2 risk score is low and in the low risk category. No indication for inpatient admission at this time. Will recommend that the patient increase his aspirin dose to a full dose aspirin for the time being and make sure to take it with food. Will recommend close follow-up with PCP for potential further outpatient work-up if indicated, although no indication at this time emergently. I have extensively reviewed the treatment plan and discharge instructions with the patient and their family. I have addressed all patient concerns at this time. The patient and family was made aware of what symptoms to monitor for that would warrant a return to the emergency department. Discussed the plan with the patient and family, they demonstrate verbal understanding and agreement with our assessment and plan at this time. The documentation in this chart was dictated using [employer] dictation software. Please excuse any dictation errors. FINDINGS: ANTERIOR CIRCULATION: Right internal carotid artery: Minor atherosclerosis. Intracranial segment is patent with no significant stenosis. No aneurysm. Right middle cerebral artery: No occlusion or significant stenosis. No aneurysm. Right anterior cerebral artery: No occlusion or significant stenosis. No aneurysm. Left internal carotid artery: Minor atherosclerosis. Intracranial segment is patent with no significant stenosis. No aneurysm. Left middle cerebral artery: No occlusion or significant stenosis. No aneurysm. Left anterior cerebral artery: No occlusion or significant stenosis. No aneurysm. POSTERIOR CIRCULATION: Right vertebral artery: No occlusion or significant stenosis. No aneurysm. Left vertebral artery: No occlusion or significant stenosis. No aneurysm. Basilar artery: No occlusion or significant stenosis. No aneurysm. Right posterior cerebral artery: No occlusion or significant stenosis. No aneurysm. Left posterior cerebral artery: No occlusion or significant stenosis. No aneurysm. Brain: Moderate cerebral atrophy. Small chronic appearing lacunar infarct in the deep left [place] versus white matter. Motion artifact with no convincing edema or acute hemorrhage on noncontrast images. Cerebral ventricles: Ex vacuo dilation of the ventricular system. Bones/joints: No acute fracture. Soft tissues: No lesions or collections. Paranasal sinuses: Benign-appearing retention cysts in the paranasal sinuses. IMPRESSION: No acute arterial pathology. Patent [place] of [place]. FINDINGS: Right common carotid artery: No significant stenosis. No dissection or occlusion . Right internal carotid artery: Extracranial segment is patent with no significant stenosis. No dissection or occlusion. Less than 50% stenosis Right external carotid artery: No occlusion or significant stenosis. Left common carotid artery: No significant stenosis. No dissection or occlusion. Left internal carotid artery: Extracranial segment is patent with no significant stenosis. No dissection or occlusion. Less than 50% stenosis Left external carotid artery: No occlusion or significant stenosis. Right vertebral artery: No significant stenosis. No dissection or occlusion. Left vertebral artery: No significant stenosis. No dissection or occlusion. Veins: Distended jugular veins right greater than left. Could be due to elevated right heart pressures or volume overload. Soft tissues: No significant soft tissue swelling. Bones/joints: Degenerative changes in the cervical spine. No acute fracture or subluxation. IMPRESSION: 1. No acute arterial pathology. Patent carotid and vertebral system bilaterally. 2. Incidental findings as described. REFERENCES: NASCET CRITERIA. The degree of internal carotid artery stenosis is based on NASCET criteria. Normal is no stenosis. Mild is less than 50% stenosis. Moderate is 50-69% stenosis. Severe is 70% to 99% stenosis. Total occlusion is no detectable patent lumen. Thank you for allowing us to participate in the care of your patient. Dictated and Authenticated by: Bette Laguna MD 01/01/2021 11:47 PM Eastern Time ([place] & [place]) HPI General Date/Time Provider Initiated Documentation: 01/01/21 21:55 . HPI Narrative: This is a 75-year-old male with past medical history of asthma, hypertension, previous suspected stroke for which she received thrombolytics in 2019, seizures on Keppra, high cholesterol, who presents today for evaluation of garbled speech. At 9 PM roughly 45 minutes prior to arrival the patient had an episode of garbled speech while on the phone with his son. was there and witnessed the event. He was brought to the ER shortly thereafter. Upon arrival to the ER his symptoms had resolved. No new medications, no recent falls or trauma. does state that he was recently out at his hunting camp with his friends, but is otherwise been doing well without any changes. She does questi on whether or not he has been drinking enough fluids. Other than that no other complaints. and patient state that these symptoms were completely dissimilar from when he had his previous episode in 2019. He has not on any anticoagulants at this time. He has been taking his seizure medications as directed. He does take a daily 81 mg aspirin. No other complaints at this time. No other modifying factors. Currently he denies any headache, chest pain, shortness of breath, numbness, tingling, weakness or confusion. Of note the patient's does state that he does occasionally get confused, states that this is a little bit different than that. Related Data Home Medications Medication Instructions Recorded Confirmed ascorbic acid (vitamin C) [Vitamin 1,500 mg PO DAILY tab.chew NS 07/09/12 01/01/21 C] lisinopril 20 mg PO DAILY tab-cap NS 07/09/12 01/01/21 magnesium 500 mg PO DAILY NS 07/09/12 01/01/21 albuterol sulfate 2 puff INHALATION QID PRN 01/09/14 01/01/21 atorvastatin 20 mg tablet 20 mg PO HS 09/19/18 01/01/21 calcium carbonate 600 mg (1,500 1 tab PO DAILY 09/19/18 01/01/21 mg)-vitamin D3 400 unit tablet fluticasone propionate 2 spray INTRANASAL DAILY 09/19/18 01/01/21 fluticasone propionate 110 1 puff IH BID 09/19/18 01/01/21 mcg/actuation HFA aerosol inhaler omeprazole 20 mg capsule,delayed 20 mg PO DAILY 09/19/18 01/01/21 release aspirin 81 mg PO DAILY 01/23/19 01/01/21 glucosamine 750 [id number] 1 tab PO BID 03/20/19 01/01/21 no1 644 mg-C 30 mg-sin 1 mg tablet ibuprofen 600 mg tablet 400 mg PO BID PRN tab 03/20/19 01/01/21 propylene glycol 0.6 % eye drops 1 drp OP DAILY PRN 03/20/19 01/01/21 levetiracetam 500 mg tablet 500 mg PO BID #180 tab 02/02/20 01/01/21 loratadine 10 mg tablet 10 mg PO DAILY 06/09/20 01/01/21 solifenacin 10 mg tablet 10 mg PO DAILY #30 tab 10/05/20 01/01/21 Previous Rx's Medication Instructions Recorded levetiracetam 500 mg tablet 500 mg PO BID #180 tab 02/02/20 solifenacin 10 mg tablet 10 mg PO DAILY #30 tab 10/05/20 Allergies Allergy/AdvReac Type Severity Reaction Status Date / Time shellfish derived Allergy Severe Anaphylaxsi Verified 01/01/21 22:04 s Sulfa (Sulfonamide AdvReac Nausea Verified 01/01/21 22:04 Antibiotics) General Stated Complaint: AMS/LOC BENITA: 2 Review of Systems All systems reviewed & are unremarkable except as noted in HPI and below PFSH Medical History Adenomatous polyp of transverse colon (05/21/17) serrated sessile adenoma Asthma (01/26/14) Carpal tunnel syndrome (01/26/14) Diverticulosis (01/26/14) Encephalitis Erectile dysfunction (01/26/14) Hearing loss History of adenomatous polyp of colon Hyperplasia of prostate with urinary obstruction Hypertension (01/26/14) Increased frequency of urination (01/26/14) Obstructive and reflux uropathy Osteoarthritis of knee (07/07/13) Overactive bladder Primary osteoarthritis of right knee Prostate cancer (03/31/15) PT. STATES IT WAS FOUND OUT DURING THE TURP PROCEDURE, AND IT'S UNDER ACTIVE SURVIELLENCE Rhinitis (01/26/14) Tinnitus Tremor Vertigo onset per pt New Year's day 2019 Surgical History Colonoscopy - MAC (05/09/17) History of total right knee replacement (TKR) (09/24/18) Dr. Gonzáles Hx of transurethral resection of prostate S/P tonsillectomy Status post appendectomy Status post bilateral inguinal hernia repair Reports bilateral inguinal hernia repair x2 Status post total left knee replacement Patient estimates surgery approximately 2005 Dr. Mcintyre Status post trigger finger release Left hand Family History Mother Cholecystolithiasis Stroke Father , from either MN or PE Unsure of blood clot location Happened following prostate surgery No problems noted. Brother Heart disease S/P stents Stroke Sister , Had pacemaker Heart disease Social History Smoking/Tobacco Use Status: Former Tobacco Use Quit Date: 04/30/69 Smoking risk assessment performed?: Yes Alcohol Intake: current Alcohol Intake frequency: 0-2 drinks per day Alcohol type: beer and hard liquor Drug use: Never Substance use type: does not use Household members: spouse current occupation: Retired Do you feel safe at home: Yes Do you feel safe in your relationship?: Yes Exam Narrative Exam Narrative: 1.Const: Well-nourished, Well-developed, appearing stated age 2.Eyes: PERRL, no conjunctival injection, and symmetrical lids. 3.ENT: Atraumatic external nose and ears. Moist MM. Neck: Symmetric, trachea midline, No thyromegaly. 4.CVS: +S1/S2, No murmurs or gallops. Peripheral pulses 2+ and equal in all extremities. Brisk capillary refill in all extremities. 5.RESP: Unlabored respiratory effort. Clear to auscultation bilaterally. No wheezes rales or rhonchi 6.GI: Soft, Nontender/Nondistended, No hepatosplenomegaly. No guarding or rebound. 7.MSK: Normocephalic/Atraumatic, Extremities w/o deformity or ttp No cyanosis or clubbing, Normal movement of all extremities 8.Skin: Warm, Dry. No rashes or lesions. 9.Neuro: manager heart failure II-XII grossly intact. Sensation grossly intact, no focal neurologic deficits. All 6 cardinal planes of vision are fully intact. No evidence of rotatory or vertical nystagmus. The patient demonstrated a normal rxzsho-[id number]-ybplgl, good dexterity. There was no evidence of dysdiadochokinesia. Patient was able to ambulate without difficulty. There was no wide-based gait.[id number] testing was normal. Sensation was intact bilaterally as well as muscle strength bilaterally for all extremities. Patient was able to verbalize butter cup with no slurring, or miss pronunciation. 10.Psych: (AAO) x3. Appropriate mood and affect Course Vital Signs Vital signs: Vital Signs Temperature 36.7 C 01/01/21 21:59 Pulse 73 01/01/21 21:59 Respiratory Rate 24 01/01/21 21:59 Blood Pressure 145/78 H 01/01/21 21:59 Pulse Oximetry 97 01/01/21 21:59 Temperature 36.7 C 01/01/21 21:59 Temperature Source Temporal Artery Scan 01/01/21 21:59 Pulse 73 01/01/21 21:59 Respiratory Rate 24 01/01/21 21:59 Respiratory Effort 01/01/21 22:03 Blood Pressure 145/78 H 01/01/21 21:59 Blood Pressure Position Supine 01/01/21 21:59 Pulse Oximetry 97 01/01/21 21:59 Oxygen Delivery Method Room Air 01/01/21 21:59 Oxygen Flow Rate 0 01/01/21 21:59 Pain Level 0 01/01/21 21:59 Lab/Test Results Lab/Test Results: Laboratory Tests Range/Units 01/01/21 01/01/21 22:25 22:25 WBC (4.4-10.8) 10^3/uL 7.71 RBC (4.36-5.78) 10^6/uL 4.22 L Hgb (13.5-17.5) g/dL 13.0 L Hct (40.0-50.0) % 39.2 L MCV (80-95) fL 92.9 MCH (27.0-33.0) pg 30.8 MCHC (32.0-36.0) % 33.2 RDW (11.8-14.1) % 13.1 Plt Count (130-400) 10^3/uL 159 MPV (8.0-11.0) fL 8.8 Immature Gran % 0.4 Neutrophils % 60.2 Lymphocytes % 27.1 Monocytes % 9.5 Eosinophils % 2.3 Basophils % 0.5 Nucleated RBC % % 0 Absolute Neutrophils (1.2-6.7) 10^3/uL 4.64 Absolute Lymphocytes (1.2-3.4) 10^3/uL 2.09 Absolute Monocytes (0.1-0.8) 10^3/uL 0.73 Absolute Eosinophils (0.0-0.7) 10^3/uL 0.18 Absolute Basophils (0.0-0.2) 10^3/uL 0.04 VBG pH (7.31-7.41) 7.39 VBG pCO2 (41-51) mmHg 47 VBG pO2 mmHg 52 VBG HCO3 (23-28) mmol/L 28 VBG Total CO2 (24-29) mmol/L 25 VBG O2 Saturation % 85 VBG Base Excess (-2-3) mmol/L 3
[2021-01-01 22:56] LABS: ALT 19 U/L (16-63); AST 17 U/L (15-37); Albumin 3.4 g/dL (3.4-5.0); Alkaline Phosphatase 65 U/L (46-116); Anion Gap 5.8 mmol/L (3-11); BUN 14 mg/dL (7-18); Bilirubin, Total 0.3 mg/dL (0.2-1.0); CO2 28.2 mmol/L (21.0-32.0); CREATININE 1.1 mg/dL (0.70-1.30); Chloride 102 mmol/L (98-107); Glucose 128 mg/dL (74-106); Potassium 3.9 mmol/L (3.5-5.1); Sodium 136 mmol/L (136-145); TSH (W/Ref FT4) 2.44 uIU/mL (0.36-3.74); Total Protein 5.9 g/dL (6.4-8.2); Troponin I < 0.05 ng/mL (<0.06)
[2021-01-01 23:14] LABS: Bilirubin Negative (Negative); Blood Negative (Negative); Clarity Clear (Clear); Glucose Negative (Negative); Ketones Negative (Negative); Leukocyte Esterase Negative (Negative); Nitrite Negative (Negative); Urobilinogen 0.2 EU/dL (Up TO 0.2); pH 6.5 (5-8)
[2021-01-01] MEDS: Omnipaque 350 MG/ML 100 ML BTL IJ (23:14)
--- NOTE | 2021-01-01 23:48 | DI.VRAD_ITS ---
PROCEDURE INFORMATION: Exam: CT Angiography Head With Contrast, Arteriography Exam date and time: 01/01/2021 10:17 PM Age: 75 years old Clinical indication: Speech disturbance; Patient HX: Transient garbled speech TECHNIQUE: Imaging protocol: Computed tomography angiography of the head with contrast. Exam focused on the arteries. 3D rendering (Not supervised by radiologist): MIP and/or 3D reconstructed images were created by the technologist. COMPARISON: CT HEAD - STROKE PROTOCOL 01/18/2019 4:16 PM FINDINGS: ANTERIOR CIRCULATION: Right internal carotid artery: Minor atherosclerosis. Intracranial segment is patent with no significant stenosis. No aneurysm. Right middle cerebral artery: No occlusion or significant stenosis. No aneurysm. Right anterior cerebral artery: No occlusion or significant stenosis. No aneurysm. Left internal carotid artery: Minor atherosclerosis. Intracranial segment is patent with no significant stenosis. No aneurysm. Left middle cerebral artery: No occlusion or significant stenosis. No aneurysm. Left anterior cerebral artery: No occlusion or significant stenosis. No aneurysm. POSTERIOR CIRCULATION: Right vertebral artery: No occlusion or significant stenosis. No aneurysm. Left vertebral artery: No occlusion or significant stenosis. No aneurysm. Basilar artery: No occlusion or significant stenosis. No aneurysm. Right posterior cerebral artery: No occlusion or significant stenosis. No aneurysm. Left posterior cerebral artery: No occlusion or significant stenosis. No aneurysm. Brain: Moderate cerebral atrophy. Small chronic appearing lacunar infarct in the deep left [place] versus white matter. Motion artifact with no convincing edema or acute hemorrhage on noncontrast images. Cerebral ventricles: Ex vacuo dilation of the ventricular system. Bones/joints: No acute fracture. Soft tissues: No lesions or collections. Paranasal sinuses: Benign-appearing retention cysts in the paranasal sinuses. IMPRESSION: No acute arterial pathology. Patent [place] of [place]. PROCEDURE INFORMATION: Exam: CT Angiography Neck With Contrast Exam date and time: 01/01/2021 10:17 PM Age: 75 years old Clinical indication: Speech disturbance; Patient HX: Transient garbled speech TECHNIQUE: Imaging protocol: Computed tomography angiography of the neck with contrast. 3D rendering (Not supervised by radiologist): MIP and/or 3D reconstructed images were created by the technologist. COMPARISON: CT HEAD - STROKE PROTOCOL 01/18/2019 4:16 PM FINDINGS: Right common carotid artery: No significant stenosis. No dissection or occlusion. Right internal carotid artery: Extracranial segment is patent with no significant stenosis. No dissection or occlusion. Less than 50% stenosis Right external carotid artery: No occlusion or significant stenosis. Left common carotid artery: No significant stenosis. No dissection or occlusion. Left internal carotid artery: Extracranial segment is patent with no significant stenosis. No dissection or occlusion. Less than 50% stenosis Left external carotid artery: No occlusion or significant stenosis. Right vertebral artery: No significant stenosis. No dissection or occlusion. Left vertebral artery: No significant stenosis. No dissection or occlusion. Veins: Distended jugular veins right greater than left. Could be due to elevated right heart pressures or volume overload. Soft tissues: No significant soft tissue swelling. Bones/joints: Degenerative changes in the cervical spine. No acute fracture or subluxation. IMPRESSION: 1. No acute arterial pathology. Patent carotid and vertebral system bilaterally. 2. Incidental findings as described. REFERENCES: NASCET CRITERIA. The degree of internal carotid artery stenosis is based on NASCET criteria. Normal is no stenosis. Mild is less than 50% stenosis. Moderate is 50-69% stenosis. Severe is 70% to 99% stenosis. Total occlusion is no detectable patent lumen. Dictated and Authenticated by: Bette Laguna MD. Ordering:RAUDEL Fuentes MD
[2021-01-02 00:04] VITALS: BP 134/83; PULSE 67; RESP 16; TEMP 36.6; O2SAT 96
== END 2021-01-02 00:20 | disposition home or self-care (01) ==
PROVIDERS: Emergency Provider Student in an Organized Health Care Education/Training Program; PCP Family Medicine
DX: R47.89 Other speech disturbances (principal)
CPT/HCPCS: 36415; 70496; 70498; 80053; 82805; 93005; 99285; 81003; 82140; 84443; 84484; 85025; 93010; 99284; J3490

== ENCOUNTER 2021-01-04 14:59 | Outpatient (CLI) | payer MEDICARE, OTHER, SELFPAY ==
[2021-01-04 14:44] LABS: Ammonia 24 umol/L (11-32)
== END 2021-01-04 15:00 | disposition home or self-care (01) ==
LOC: LBO 15:10
PROVIDERS: PCP Family Medicine; Visit Provider Student in an Organized Health Care Education/Training Program
DX: E72.29 Other disorders of urea cycle metabolism (principal)
CPT/HCPCS: 36415; 82140

== ENCOUNTER 2021-01-07 01:25 | Outpatient (CLI) | payer MEDICARE, OTHER, SELFPAY ==
--- NOTE | 2021-02-07 10:28 | W.CARDEVENT ---
Date of service: 02/07/21 Time of Service: 10:28 Cardiac Event Recorder Referring Provider:: Catia Means Indications:: TIA Cardiac Event Note: This is a 30-day cardiac event monitor Predominant rhythm was sinus. Average heart rate was 75, minimum 57, maximum 104 There was no atrial fibrillation, no high-grade AV block, no pauses greater than 3 seconds Overall there were no significant dysrhythmias
== END 2021-01-07 01:26 | disposition home or self-care (01) ==
LOC: RT 01:26
PROVIDERS: PCP Family Medicine; Visit Provider Family Medicine
DX: G45.9 Transient cerebral ischemic attack, unspecified (principal)
CPT/HCPCS: 93270

== ENCOUNTER → 2021-01-11 12:42 | Outpatient (BNVA) | payer MEDICARE, OTHER, SELFPAY | PROVIDERS: PCP Family Medicine; Referring Provider Family Medicine; Visit Provider Psychiatry & Neurology Neurology | DX: R68.89 Other general symptoms and signs (principal); I63.9 Cerebral infarction, unspecified; G40.109 Localization-related (focal) (partial) symptomatic epilepsy and epileptic syndromes with simple partial seizures, not intractable, without status epilepticus; I67.9 Cerebrovascular disease, unspecified; R41.3 Other amnesia; I10 Essential (primary) hypertension; J45.909 Unspecified asthma, uncomplicated; Z85.46 Personal history of malignant neoplasm of prostate | CPT/HCPCS: 99215 ==

== ENCOUNTER 2021-01-17 03:48 | Outpatient (CLI) | payer MEDICARE, OTHER, SELFPAY ==
--- NOTE | 2021-01-17 14:55 | PDOC.EEG_ITS ---
Neurology EEG EEG: [facility] Department of Neurology EEG REPORT Date of Recordin01/17/21 Interpreting Physician: Dr. Rosita Mckenna PCP/Referring Provider: Dr. Means Reason for study: Mr. Collins is a 76 year-old man with a recent episode of transient speech changes concerning for seizure. Current Medications: Home Medications Medication Instructions Recorded Confirmed Type ascorbic acid (vitamin C) [Vitamin 1,500 mg PO DAILY tab.chew NS 07/09/12 01/11/21 History C] lisinopril 20 mg PO DAILY tab-cap NS 07/09/12 01/11/21 History magnesium 500 mg PO DAILY NS 07/09/12 01/11/21 History albuterol sulfate 2 puff INHALATION QID PRN 01/09/14 01/11/21 History atorvastatin 20 mg tablet 20 mg PO HS 09/19/18 01/11/21 History calcium carbonate 600 mg (1,500 1 tab PO DAILY 09/19/18 01/11/21 History mg)-vitamin D3 400 unit tablet fluticasone propionate 2 spray INTRANASAL DAILY 09/19/18 01/11/21 History fluticasone propionate 110 1 puff IH BID 09/19/18 01/11/21 History mcg/actuation HFA aerosol inhaler omeprazole 20 mg capsule,delayed 20 mg PO DAILY 09/19/18 01/11/21 History release aspirin 81 mg PO DAILY 01/23/19 01/11/21 History glucosamine 750 cd-[id number]-lli 1 tab PO BID 03/20/19 01/11/21 History no1 644 mg-C 30 mg-sin 1 mg tablet ibuprofen 600 mg tablet 400 mg PO BID PRN tab 03/20/19 01/11/21 History propylene glycol 0.6 % eye drops 1 drp OP DAILY PRN 03/20/19 01/11/21 History levetiracetam 500 mg tablet 500 mg PO BID #180 tab 02/02/20 01/11/21 Rx solifenacin 10 mg tablet 10 mg PO DAILY #30 tab 01/06/21 01/11/21 Rx clopidogrel 75 mg tablet 75 mg PO DAILY 01/11/21 01/11/21 History montelukast 10 mg tablet 10 mg PO DAILY 01/11/21 01/11/21 History METHODS: A 21 channel digitized electroencephalogram was performed in the [facility]. The 10/20 international system of electrode placement was used and bipolar and referential electrode montages were recorded. In addition to EEG the patient was monitored for EKG and lateral/vertical eye movements. Activation procedures of photic stimulation and hyperventilation were performed if applicable. Video was used during activation procedures and during events where applicable. The duration of the recording was 30 minutes. DESCRIPTION OF EEG: The patient was noted to be awake, drowsy, and asleep during the recording. During maximal wakefulness a 9-Hz posterior background rhythm was present which was well-modulated, symmetrical, reactive to eye opening, and of moderate voltage. With eye opening the background activity changed to a low voltage mixture of alpha, beta, and occasional theta range frequencies. Faster frequencies were present in the bilateral anterior head regions. There was a normal anterior-posterior voltage gradient. During drowsiness, there was attenuation of the posterior dominant background rhythm and vertex waves. Stage II sleep was present with symmetrical sleep spindles, K-complexes, and vertex waves. There was rare, brief, left temporal polymorphic delta slowing. Activating Procedures: Photic stimulation was performed which produced a symmetrical posterior driving response at various flash frequencies. Hyperventilation was performed with moderate effort and produced no physiological slowing of the background. EKG: EKG revealed normal sinus rhythm. INTERPRETATION: This EEG is abnormal due to rare, brief, left temporal slowing. PRIOR EEG: -EEG (01/20/19 at [facility] [place]): Diffuse left greater than right slowing with left TIRDA and FIRDA. -vEEG (01/20/19-01/21/19 at [facility] [place]): Intermittent left hemisphere focal slowing which was improving towards the end of the recording. CLINICAL CORRELATION: The finding above could represent an area of focal cerebral dysfunction. No definitive epileptiform activity was present. Clinical correlation is advised. Rosita Mckenna MD
== END 2021-01-17 03:49 | disposition home or self-care (01) ==
LOC: RT 03:48
PROVIDERS: PCP Family Medicine; Visit Provider Psychiatry & Neurology Neurology
DX: R41.89 Other symptoms and signs involving cognitive functions and awareness (principal); R49.8 Other voice and resonance disorders; R94.01 Abnormal electroencephalogram [EEG]
CPT/HCPCS: 95819

== ENCOUNTER 2021-01-25 01:44 | Outpatient (CLI) | payer MEDICARE, OTHER, SELFPAY ==
--- NOTE | 2021-01-25 11:30 | DI.MRI_ITS ---
Exam(s) MR BRAIN WO EXAM: MR BRAIN WO CLINICAL HISTORY: TIA,G45.9,?CVA TECHNIQUE: Multiplanar multisequence MRI of the brain was performed. COMPARISON: CT CT BRAIN NECK CTA from 01/01/[address] BRAIN NECK CTA from 01/01/2021 FINDINGS: VENTRICLES AND EXTRA AXIAL SPACES: Normal in size and morphology for the patient's age. MIDLINE SHIFT: None. CEREBRAL PARENCHYMA: No focus of restricted diffusion to suggest acute infarct. No space-occupying le ana identified. There are areas of hyperintense signal in the white matter on the FLAIR and T2 weigh ofelia images most consistent with chronic microvascular ischemic changes. HEMORRHAGE: None. BRAINSTEM/CEREBELLUM: Normal. CALVARIUM: Normal. VISUALIZED PARANASAL SINUSES/MASTOIDS:Small mucous retention cysts or polyps are seen in the maxillar y sinuses bilaterally. There is fluid seen in the right mastoid air cells. The remaining visualized paranasal sinuses and left mastoid air cells are clear. [place]: Normal flow void. PITUITARY GLAND: Unremarkable. OTHER FINDINGS: None. IMPRESSION: 1. 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 2. No evidence of an acute infarct. DATA REPOSITORY:
== END 2021-01-25 02:04 ==
PROVIDERS: PCP Family Medicine; Visit Provider Family Medicine
DX: G45.9 Transient cerebral ischemic attack, unspecified (principal); G31.1 Senile degeneration of brain, not elsewhere classified
CPT/HCPCS: 70551

== ENCOUNTER 2021-02-07 10:38 | Outpatient (CLI) | payer MEDICARE, OTHER, SELFPAY | END 2021-02-07 10:39 | LOC: CARDO 02-08 15:16 | PROVIDERS: PCP Family Medicine; Referring Provider Family Medicine; Visit Provider Internal Medicine Cardiovascular Disease | DX: G45.9 Transient cerebral ischemic attack, unspecified (principal) | CPT/HCPCS: 93272 ==

== ENCOUNTER 2021-02-18 12:05 | Outpatient (CLI) | payer MEDICARE, OTHER, SELFPAY ==
--- NOTE | 2021-02-18 13:00 | DI.US_ITS ---
APPROVED REPORT EXAM: Comprehensive 2D, Doppler, and color-flow Echocardiogram Patient Location: Out-Patient Ocular Care Aide: Rachel Smith RDCS (AE) Indications: TIA, CVA Other Information Study Quality: Adequate Conclusion Normal left ventricular wall thickness and chamber size. Estimated ejection fraction is 55 to 60%. Wall motion is normal Normal right ventricular size and systolic function Both atria are normal in size Trileaflet aortic valve with trace regurgitation Normal mitral valve with trace to mild regurgitation Normal tricuspid valve with trace regurgitation. Normal estimated right ventricular systolic pressur e Wall motion Left Ventricle The left ventricle is normal size. The left ventricular systolic function is normal. The left ventric ular ejection fraction is within the normal range. There is normal left ventricular wall thickness. T here is normal LV segmental wall motion. There is no ventricular septal defect visualized. LVEF is 58 %. Right Ventricle The right ventricle is normal size. The right ventricular systolic function is normal. The RVSP is 24 .6 mmHg. Atria The left atrium size is normal. The right atrium size is normal. The interatrial septum is intact wit h no evidence for an atrial septal defect. Aortic Valve The aortic valve is normal in structure. Aortic valve is trileaflet. There is no aortic valvular sten osis. Trace aortic regurgitation. Mitral Valve The mitral valve is normal in structure. No evidence of mitral valve stenosis. Trace to mild mitral r egurgitation. Tricuspid Valve The tricuspid valve is normal in structure. There is no tricuspid valve stenosis. Trace tricuspid reg urgitation. Pulmonic Valve The pulmonary valve is normal in structure. There is no pulmonic valvular stenosis. Trace pulmonic re gurgitation. Great Vessels The aortic root is normal in size. The ascending aorta is mildly dilated. Aortic arch is normal in ca liber. IVC is normal in size and collapses >50% with inspiration. Pericardium There is no pericardial effusion. 2D Dimensions IVSD d PLAX 1.00 cm M: 0.6-1.2 LV Vol A2C d MOD 110.7 mL LVPW d PLAX 1.02 cm M: 0.6 - 1.2 LV Vol A4C d MOD 115.4 mL LVID d PLAX 4.73 cm M: 4.2 - 5.8 LA vol/ BSA A2C s A-L 19.8 mL/m2 LVDs 3.25 cm M: 2.5 - 4.0 LA vol/ BSA A4C s A-L 27.5 mL/m2 Ao Root d 3.23 cm M: 3.1 - 3.7 LA Vol/ BSA Biplane s A-L 24.9 mL/m2 RA Area A4C 10.59 cm2 LA Area A4C s MOD 16.74 cm2 RA Vol/ BSA A4C s A-L 11.7 mL/m2 LA Area A2C s MOD 15.10 cm2 Ao Asc Diam d 3.55 cm M: 2.6 - 3.4 LV EF A4C MOD 57.8 % LV EF Teichholz 58.0 % LV EF A2C MOD 58.0 % LVEF (Hinds's) 54.28 % M: 52 - 72 LV EF Biplane MOD 54.3 % LV Volume 87.68 mL M: 62 - 150 SV 62.03 mL LV Volume Index 46.88 mL/m2 M: 34 - 74 SV Index 33.17 mL/m2 LV Vol Biplane MOD 114.3 mL FS 30.55 % M-Mode TAPSE 2.13 cm (M/F) >1.7 LV Diastology MV E' medial 0.065 (>0.07 m/s) E/A Ratio 0.6 LV E/e MED 7.80 (<14) MV E Vmax 0.51 (0.4-1.3 m/s) MV E' lateral 0.076 (>0.1 m/s) MV A Vmax 0.80 (0.4-1.3 m/s) LV E/e LAT 6.60 (<14) MV E/A Ratio 0.60 MV E/E' medial 7.83 MV E/E' lateral 6.62 Aortic Valve LVOT Area 4.15 cm2 AoV Area Vmax 3.60 cm2 LVOT Vmax 0.99 m/s AoV Area/ BSA (Vmax) 1.92 cm2/m2 LVOT Mean Vivek. 0.60 m/s ROSINA Mean Vivek. 3.30 cm2 LVOT Peak Grad 3.9 mmHg ROSINA Mean Vivek. Index 1.77 cm2/m2 LVOT Mean Grad 1.8 mmHg AR DT 2268 msec LVOT VTI 0.185 m AR PHT 658 msec LVOT Diam s 2.25 cm AoV Vmax 1.14 m/s Velocity Ratio 0.86 AoV Mean Vivek. 0.75 m/s AoV Peak Grad 5.2 mmHg LVOT SV 76.96 mL AoV Mean Grad 2.6 mmHg AoV VTI 0.204 m AoV Area VTI 3.78 cm2 AoV Area/ BSA (VTI) 2.02 cm/m2 Mitral Valve MV DT 301 (160-240 msec) MV PHT 87 msec MV Area PHT 2.52 cm2 MV VTI 0.256 m MV Area VTI 3.01 (4.0-6.0 cm2) Pulmonary Valve PV Vmax 0.98 (0.5-1.5 m/s) RVOT Peak Gr. 1.05 mmHg PV Peak Grad 3.8 mmHg RVOT Mean Gr. 0.55 mmHg PV Mean Grad 2.0 mmHg RVOT VTI 0.112 m PV VTI 0.175 m RVOT Vmax 0.51 m/s Tricuspid Valve TR Peak Grad 21.5 mmHg TR Vmax 2.32 m/s RA Pressure 3.00 mmHg RVSP (TR) 24.6 mmHg
== END 2021-02-18 12:25 ==
PROVIDERS: PCP Family Medicine; Visit Provider Psychiatry & Neurology Neurology
DX: I63.9 Cerebral infarction, unspecified (principal); I34.0 Nonrheumatic mitral (valve) insufficiency
CPT/HCPCS: 93306

== ENCOUNTER → 2021-03-01 14:30 | Outpatient (BNVA) | payer MEDICARE, OTHER, SELFPAY | PROVIDERS: PCP Family Medicine; Visit Provider Psychiatry & Neurology Neurology | DX: G40.109 Localization-related (focal) (partial) symptomatic epilepsy and epileptic syndromes with simple partial seizures, not intractable, without status epilepticus (principal); I67.9 Cerebrovascular disease, unspecified; R41.3 Other amnesia; I10 Essential (primary) hypertension | CPT/HCPCS: 99214 ==

== ENCOUNTER 2021-03-09 02:50 | Outpatient (CLI) | payer MEDICARE, OTHER, SELFPAY ==
[2021-03-09 13:51] LABS: Vitamin B12 291 pg/mL (193-986)
== END 2021-03-09 02:51 | disposition home or self-care (01) ==
LOC: LBO 02:50
PROVIDERS: PCP Family Medicine; Visit Provider Psychiatry & Neurology Neurology
DX: R41.3 Other amnesia (principal); G62.9 Polyneuropathy, unspecified
CPT/HCPCS: 36415; 82607

== ENCOUNTER 2021-06-02 03:12 | Outpatient (CLI) | payer MEDICARE, SELFPAY ==
[2021-06-02 22:00] LABS: PSA, Diagnostic 0.7 ng/mL (0.0-6.5)
== END 2021-06-02 03:13 | disposition home or self-care (01) ==
LOC: LBO 03:12
PROVIDERS: PCP Family Medicine; Visit Provider Urology
DX: C61 Malignant neoplasm of prostate (principal)
CPT/HCPCS: 36415; 84153

== ENCOUNTER → 2021-06-07 14:16 | Outpatient (BNVA) | payer MEDICARE, SELFPAY | PROVIDERS: PCP Family Medicine; Visit Provider Urology | DX: C61 Malignant neoplasm of prostate (principal) | CPT/HCPCS: 99214 ==

== ENCOUNTER 2021-07-12 20:16 | Outpatient (REF) | payer MEDICARE, SELFPAY ==
[2021-07-12 15:15] LABS: HCT 42.8 % (40.0-50.0); HGB 14.2 g/dL (13.5-17.5); MCH 31.7 pg (27.0-33.0); MCHC 33.2 % (32.0-36.0); MCV 95.5 fL (80-95); MPV 9.6 fL (8.0-11.0); Platelet Count 182 10^3/uL (130-400); RBC 4.48 10^6/uL (4.36-5.78); RDW 13.3 % (11.8-14.1)
[2021-07-12 17:19] LABS: ALT 18 U/L (16-63); AST 15 U/L (15-37); Albumin 3.8 g/dL (3.4-5.0); Alkaline Phosphatase 73 U/L (46-116); Anion Gap 5.3 mmol/L (3-11); BUN 12 mg/dL (7-18); Bilirubin, Total 0.6 mg/dL (0.2-1.0); CO2 30.7 mmol/L (21.0-32.0); CREATININE 0.8 mg/dL (0.70-1.30); Calcium 8.5 mg/dL (8.5-10.1); Calculated LDL 55 mg/dL (<100); Chloride 101 mmol/L (98-107); Cholesterol 100 mg/dL (<200); Glucose 86 mg/dL (74-106); HDL Cholesterol 35 mg/dL (40-60); Potassium 4.4 mmol/L (3.5-5.1); Sodium 137 mmol/L (136-145); Total Protein 6.4 g/dL (6.4-8.2); Triglyceride 51 mg/dL (<150)
== END 2021-07-12 20:17 | disposition home or self-care (01) ==
LOC: NCHCN 20:16
PROVIDERS: PCP Family Medicine; Visit Provider Family Medicine
DX: I10 Essential (primary) hypertension (principal); R60.0 Localized edema; E78.5 Hyperlipidemia, unspecified; Z85.46 Personal history of malignant neoplasm of prostate
CPT/HCPCS: 80053; 80061; 85027

== ENCOUNTER → 2021-08-30 12:31 | Outpatient (BNVA) | payer MEDICARE, SELFPAY | PROVIDERS: PCP Family Medicine; Visit Provider Psychiatry & Neurology Neurology | DX: R68.89 Other general symptoms and signs (principal); I67.9 Cerebrovascular disease, unspecified; R41.3 Other amnesia | CPT/HCPCS: 99214 ==

== ENCOUNTER 2021-08-31 14:00 | Outpatient (REF) | payer MEDICARE, SELFPAY ==
[2021-08-31 23:16] LABS: Vitamin B12 579 pg/mL (193-986)
== END 2021-08-31 14:01 | disposition home or self-care (01) ==
LOC: LBN 14:00
PROVIDERS: PCP Family Medicine; Visit Provider Psychiatry & Neurology Neurology
DX: G62.9 Polyneuropathy, unspecified (principal); R41.3 Other amnesia
CPT/HCPCS: 82607

== ENCOUNTER → 2021-09-19 13:26 | Outpatient (BNVA) | payer MEDICARE, SELFPAY | PROVIDERS: PCP Family Medicine; Referring Provider Family Medicine; Visit Provider Student in an Organized Health Care Education/Training Program | DX: M65.341 Trigger finger, right ring finger (principal) | CPT/HCPCS: 99213 ==

== ENCOUNTER 2021-11-29 03:02 | Outpatient (CLI) | payer MEDICARE, SELFPAY ==
[2021-11-29 19:14] LABS: PSA, Diagnostic 0.6 ng/mL (<=6.5)
== END 2021-11-29 03:03 | disposition home or self-care (01) ==
LOC: LBO 03:02
PROVIDERS: PCP Family Medicine; Visit Provider Urology
DX: C61 Malignant neoplasm of prostate (principal)
CPT/HCPCS: 36415; 84153

== ENCOUNTER → 2021-12-06 10:23 | Outpatient (BNVA) | payer MEDICARE, SELFPAY | PROVIDERS: PCP Family Medicine; Referring Provider Family Medicine; Visit Provider Urology | DX: R35.1 Nocturia (principal); R35.0 Frequency of micturition; C61 Malignant neoplasm of prostate | CPT/HCPCS: 99214 ==

== ENCOUNTER → 2022-02-28 12:53 | Outpatient (BNVA) | payer MEDICARE, SELFPAY | PROVIDERS: PCP Family Medicine; Referring Provider Family Medicine; Visit Provider Psychiatry & Neurology Neurology | DX: R68.89 Other general symptoms and signs (principal); I67.9 Cerebrovascular disease, unspecified; R41.3 Other amnesia; I10 Essential (primary) hypertension | CPT/HCPCS: 99214 ==

== ENCOUNTER 2022-03-24 18:18 | Outpatient (REF) | payer MEDICARE, SELFPAY ==
[2022-03-24 18:46] LABS: Anion Gap 4.8 mmol/L (3-11); BUN 16 mg/dL (7-18); CO2 30.2 mmol/L (21.0-32.0); CREATININE 0.8 mg/dL (0.70-1.30); Calcium 8.6 mg/dL (8.5-10.1); Chloride 96 mmol/L (98-107); Estimated GFR 91.15 (mL/min/1.73m2); Glucose 81 mg/dL (74-106); Potassium 4.6 mmol/L (3.5-5.1); Sodium 131 mmol/L (136-145); TSH (W/Ref FT4) 1.27 uIU/mL (0.36-3.74)
== END 2022-03-24 18:19 | disposition home or self-care (01) ==
LOC: LBN 18:18
PROVIDERS: PCP Family Medicine; Visit Provider Family Medicine
DX: I10 Essential (primary) hypertension (principal); R60.0 Localized edema
CPT/HCPCS: 80048; 84443

== ENCOUNTER 2022-05-24 19:31 | Outpatient (REF) | payer MEDICARE, SELFPAY ==
[2022-05-24 19:51] LABS: Anion Gap 4.7 mmol/L (3-11); BUN 15 mg/dL (7-18); CO2 29.3 mmol/L (21.0-32.0); CREATININE 0.9 mg/dL (0.70-1.30); Calcium 8.6 mg/dL (8.5-10.1); Chloride 101 mmol/L (98-107); Estimated GFR 87.96 (mL/min/1.73m2); Glucose 105 mg/dL (74-106); Potassium 4.5 mmol/L (3.5-5.1); Sodium 135 mmol/L (136-145)
[2022-05-26 09:02] LABS: Hepatitis C Ab w Rflx HCV PCR Negative (Negative)
== END 2022-05-24 19:32 | disposition home or self-care (01) ==
LOC: NCHCN 19:31
PROVIDERS: PCP Family Medicine; Visit Provider Family Medicine
DX: M25.512 Pain in left shoulder (principal); R60.0 Localized edema; Z11.59 Encounter for screening for other viral diseases
CPT/HCPCS: 80048; 86803

== ENCOUNTER 2022-06-02 01:31 | Outpatient (CLI) | payer MEDICARE, SELFPAY ==
[2022-06-02 22:54] LABS: PSA, Diagnostic 0.5 ng/mL (<=6.5)
== END 2022-06-02 01:32 | disposition home or self-care (01) ==
LOC: LBO 01:31
PROVIDERS: PCP Family Medicine; Visit Provider Urology
DX: C61 Malignant neoplasm of prostate (principal)
CPT/HCPCS: 36415; 84153

== ENCOUNTER → 2022-06-09 14:23 | Outpatient (BNVA) | payer MEDICARE, SELFPAY | PROVIDERS: PCP Family Medicine; Visit Provider Urology | DX: C61 Malignant neoplasm of prostate (principal) | CPT/HCPCS: 99213 ==

== ENCOUNTER 2022-12-05 03:51 | Outpatient (CLI) | payer MEDICARE, SELFPAY ==
[2022-12-06 19:34] LABS: PSA, Diagnostic 0.6 ng/mL (<=6.5)
== END 2022-12-05 03:52 | disposition home or self-care (01) ==
LOC: LBO 03:51
PROVIDERS: PCP Family Medicine; Visit Provider Urology
DX: C61 Malignant neoplasm of prostate (principal)
CPT/HCPCS: 36415; 84153

== ENCOUNTER → 2022-12-12 14:31 | Outpatient (BNVA) | payer MEDICARE, SELFPAY | PROVIDERS: PCP Family Medicine; Referring Provider Family Medicine; Visit Provider Urology | DX: C61 Malignant neoplasm of prostate (principal) | CPT/HCPCS: 99213 ==

== ENCOUNTER → 2023-02-28 14:48 | Outpatient (BNVA) | payer MEDICARE, SELFPAY | PROVIDERS: PCP Family Medicine; Visit Provider Psychiatry & Neurology Neurology | DX: G40.109 Localization-related (focal) (partial) symptomatic epilepsy and epileptic syndromes with simple partial seizures, not intractable, without status epilepticus (principal); I67.9 Cerebrovascular disease, unspecified; I10 Essential (primary) hypertension; R68.89 Other general symptoms and signs; R41.3 Other amnesia; G62.9 Polyneuropathy, unspecified | CPT/HCPCS: 99214 ==

== ENCOUNTER 2023-06-19 04:58 | Outpatient (CLI) | payer MEDICARE, SELFPAY ==
[2023-06-19 23:13] LABS: PSA, Diagnostic 0.7 ng/mL (<=6.5)
== END 2023-06-19 04:59 | disposition home or self-care (01) ==
LOC: LBO 04:58
PROVIDERS: PCP Family Medicine; Visit Provider Urology
DX: C61 Malignant neoplasm of prostate (principal)
CPT/HCPCS: 36415; 84153

== ENCOUNTER → 2023-07-05 15:08 | Outpatient (BNVA) | payer MEDICARE, SELFPAY | PROVIDERS: PCP Family Medicine; Referring Provider Family Medicine; Visit Provider Urology | DX: N32.81 Overactive bladder (principal); C61 Malignant neoplasm of prostate | CPT/HCPCS: 99213 ==

== ENCOUNTER 2023-08-20 15:07 | Outpatient (REF) | payer MEDICARE, SELFPAY ==
[2023-08-20 15:26] LABS: HCT 39.3 % (40.0-50.0); HGB 13.5 g/dL (13.5-17.5); MCH 31.8 pg (27.0-33.0); MCHC 34.4 % (32.0-36.0); MCV 93 fL (80-95); MPV 9.6 fL (8.0-11.0); Platelet Count 183 10^3/uL (130-400); RBC 4.24 10^6/uL (4.36-5.78); RDW 13.5 % (11.8-14.1); RDW-SD 46.5 fL; WBC 6.13 10^3/uL (4.4-10.8)
[2023-08-20 15:35] LABS: Anion Gap 8.8 mmol/L (3-11); BUN 15 mg/dL (7-18); CO2 30.2 mmol/L (21.0-32.0); CREATININE 0.8 mg/dL (0.70-1.30); Calcium 8.4 mg/dL (8.5-10.1); Chloride 98 mmol/L (98-107); Estimated GFR 90.58 (mL/min/1.73m2); Glucose 83 mg/dL (74-106); Potassium 4.3 mmol/L (3.5-5.1); Sodium 137 mmol/L (136-145)
[2023-08-22 23:22] LABS: Parathyroid Hormone,Intact 24 pg/mL (19-88)
[2023-08-23 18:28] LABS: Vitamin D 25 Total 41.1 ng/mL (30-100)
== END 2023-08-20 15:08 | disposition home or self-care (01) ==
LOC: NCHCN 15:07
PROVIDERS: PCP Family Medicine; Visit Provider Family Medicine
DX: I10 Essential (primary) hypertension (principal); E83.51 Hypocalcemia
CPT/HCPCS: 80048; 82306; 85027; 83970

== ENCOUNTER 2023-08-27 15:58 | Outpatient (REF) | payer MEDICARE, SELFPAY ==
[2023-08-27 20:31] LABS: Albumin 3.8 g/dL (3.4-5.0); Calcium 8.4 mg/dL (8.5-10.1); Magnesium 1.8 mg/dL (1.8-2.4); PHOSPHORUS 3.4 mg/dL (2.6-4.7); TSH (W/Ref FT4) 1.73 uIU/mL (0.36-3.74)
== END 2023-08-27 15:59 | disposition home or self-care (01) ==
LOC: NCHCN 15:58
PROVIDERS: PCP Family Medicine; Visit Provider Family Medicine
DX: R53.83 Other fatigue (principal); E83.51 Hypocalcemia
CPT/HCPCS: 82040; 82310; 83735; 84100; 84443

== ENCOUNTER → 2023-08-29 13:02 | Outpatient (BNVA) | payer MEDICARE, SELFPAY | PROVIDERS: PCP Family Medicine; Referring Provider Family Medicine; Visit Provider Psychiatry & Neurology Neurology | DX: G40.109 Localization-related (focal) (partial) symptomatic epilepsy and epileptic syndromes with simple partial seizures, not intractable, without status epilepticus (principal); I67.9 Cerebrovascular disease, unspecified; R68.89 Other general symptoms and signs; I63.9 Cerebral infarction, unspecified; G62.9 Polyneuropathy, unspecified; R41.3 Other amnesia | CPT/HCPCS: 99214 ==

== ENCOUNTER 2024-02-12 14:29 | Outpatient (CLI) | payer MEDICARE, SELFPAY ==
[2024-02-12 22:52] LABS: PSA, Diagnostic 0.9 ng/mL (<=6.5)
== END 2024-02-12 14:30 | disposition home or self-care (01) ==
LOC: LBO 14:29
PROVIDERS: PCP Family Medicine; Visit Provider Urology
DX: C61 Malignant neoplasm of prostate (principal)
CPT/HCPCS: 36415; 84153

== ENCOUNTER → 2024-02-19 13:49 | Outpatient (BNVA) | payer MEDICARE, SELFPAY | PROVIDERS: PCP Family Medicine; Visit Provider Urology | DX: C61 Malignant neoplasm of prostate (principal) | CPT/HCPCS: 99213 ==

== ENCOUNTER → 2024-04-07 15:20 | Outpatient (BNVA) | payer MEDICARE, SELFPAY | PROVIDERS: PCP Family Medicine; Visit Provider Psychiatry & Neurology Neurology | DX: G40.109 Localization-related (focal) (partial) symptomatic epilepsy and epileptic syndromes with simple partial seizures, not intractable, without status epilepticus (principal); I67.9 Cerebrovascular disease, unspecified; R41.3 Other amnesia | CPT/HCPCS: 99214 ==

== ENCOUNTER 2024-09-17 16:32 | Outpatient (REF) | payer MEDICARE, SELFPAY ==
[2024-09-17 20:58] LABS: ALT 19 U/L (16-63); AST 14 U/L (15-37); Albumin 3.9 g/dL (3.4-5.0); Alkaline Phosphatase 65 U/L (46-116); BUN 19 mg/dL (7-18); Bilirubin, Total 0.5 mg/dL (0.2-1.0); CREATININE 0.8 mg/dL (0.70-1.30); Calcium 8.9 mg/dL (8.5-10.1); Chloride 97 mmol/L (98-107); Estimated GFR 90.02 (mL/min/1.73m2); Glucose 93 mg/dL (74-106); Potassium 4.5 mmol/L (3.5-5.1); Sodium 132 mmol/L (136-145); Total Protein 6.6 g/dL (6.4-8.2)
[2024-09-17 21:04] LABS: COMMENT (LAB VIEW ONLY) 95.38 mg/dL; Microalb ug/mg Crea 7.5 ug/mg Cr
== END 2024-09-17 16:33 | disposition home or self-care (01) ==
LOC: NCHCN 16:32
PROVIDERS: PCP Family Medicine; Visit Provider Family Medicine
DX: I10 Essential (primary) hypertension (principal)
CPT/HCPCS: 80053; 82043; 82570

== ENCOUNTER 2024-10-21 03:05 | Outpatient (CLI) | payer MEDICARE, SELFPAY ==
[2024-10-22 09:27] LABS: PSA, Diagnostic 0.8 ng/mL (<=6.5)
== END 2024-10-21 03:06 | disposition home or self-care (01) ==
LOC: LBO 03:05
PROVIDERS: PCP Family Medicine; Visit Provider Urology
DX: C61 Malignant neoplasm of prostate (principal)
CPT/HCPCS: 36415; 84153

== ENCOUNTER → 2024-10-28 13:57 | Outpatient (BNVA) | payer MEDICARE, SELFPAY | PROVIDERS: PCP Family Medicine; Visit Provider Urology | DX: N32.81 Overactive bladder (principal); C61 Malignant neoplasm of prostate | CPT/HCPCS: 99214 ==

== ENCOUNTER → 2024-12-30 13:55 | Outpatient (BNVA) | payer MEDICARE, SELFPAY | PROVIDERS: PCP Family Medicine; Referring Provider Family Medicine; Visit Provider Podiatrist | DX: M79.675 Pain in left toe(s) (principal); L60.0 Ingrowing nail; B07.0 Plantar wart; B35.1 Tinea unguium | CPT/HCPCS: 99213; 17110 ==

== ENCOUNTER → 2025-01-27 13:54 | Outpatient (BNVA) | payer MEDICARE, SELFPAY | PROVIDERS: PCP Family Medicine; Referring Provider Family Medicine; Visit Provider Podiatrist | DX: L60.0 Ingrowing nail (principal); M79.675 Pain in left toe(s); B07.0 Plantar wart; L60.2 Onychogryphosis | CPT/HCPCS: 11750; 17110 ==

== ENCOUNTER → 2025-02-18 14:47 | Outpatient (BNVA) | payer MEDICARE, SELFPAY | PROVIDERS: PCP Family Medicine; Referring Provider Family Medicine; Visit Provider Podiatrist | DX: L60.0 Ingrowing nail (principal); M79.675 Pain in left toe(s); B07.0 Plantar wart | CPT/HCPCS: 99213 ==

== ENCOUNTER → 2025-04-15 14:48 | Outpatient (BNVA) | payer MEDICARE, SELFPAY | PROVIDERS: PCP Family Medicine; Referring Provider Family Medicine; Visit Provider Podiatrist | DX: L60.0 Ingrowing nail (principal); B07.0 Plantar wart; M79.675 Pain in left toe(s); L60.2 Onychogryphosis | CPT/HCPCS: 99213 ==

== ENCOUNTER → 2025-04-28 12:48 | Outpatient (BNVA) | payer MEDICARE, SELFPAY | PROVIDERS: PCP Family Medicine; Referring Provider Family Medicine; Visit Provider Podiatrist | DX: L60.0 Ingrowing nail (principal); B07.0 Plantar wart | CPT/HCPCS: 99213 ==